=== PATIENT | male | born 1955 | race African-American/Black ===

== ENCOUNTER 2025-01-17 21:17 | Observation (INO) | payer OTHER, SELFPAY ==
--- NOTE | ~2025-01-17 | CT_ITS ---
PROCEDURE: CTA abdomen pelvis INDICATION: bright red rectal bleeding . COMPARISON: None. TECHNIQUE: Axial 2.5 mm images of the abdomen and pelvis were obtained without and with infusion of 100 cc Isovue-300 intravenous contrast. On an independent workstation, 0.625 mm reformatted images were utilized to render MIP and MPR reconstructed images of the abdominal and pelvic vasculature. FINDINGS: The abdominal aorta, visceral vessels and renal arteries demonstrate normal caliber and patency. No hemodynamically significant stenosis or aneurysm is identified. The iliac and visualized femoral vessels are widely patent. No aneurysm or hemodynamically significant stenosis is noted. No contrast blush is seen to suggest acute hemorrhage. NONVASCULAR FINDINGS: The liver parenchyma is unremarkable. No intrahepatic mass or ductal dilatation is evident. The gallbladder is unremarkable. The pancreas and spleen are normal in appearance. The adrenal glands are symmetric in size. The kidneys are unremarkable. No intrarenal stones are noted. There is no hydronephrosis. Small hiatal hernia. The stomach and bowel loops are unremarkable. Bladder wall is thickened. No free fluid or air is evident. Prominent left inguinal lymph node measures 10 mm. There is no abdominal or pelvic lymphadenopathy. The lower thoracic and lumbar spines are unremarkable. The lung bases are clear. IMPRESSION: No contrast blush is seen to suggest acute bleed. No hemodynamically significant stenosis. Small hiatal hernia is noted. Nonspecific thickening of the bladder wall. All CT scans at this facility are performed using low dose modulation techniques as appropriate to perform exam including the following: automated exposure control; use of iterative reconstruction technique; adjustment of the mA and/or kV according to patient size (this includes techniques or standardized protocols for targeted exams where dose is matched to indication/reason for exam). Reviewed, dictated and finalized at location S. IMPRESSION: No contrast blush is seen to suggest acute bleed. No hemodynamically significant stenosis. Small hiatal hernia is noted. Nonspecific thickening of the bladder wall. All CT scans at this facility are performed using low dose modulation techniqu es as appropriate to perform exam including the following: automated exposure c ontrol; use of iterative reconstruction technique; adjustment of the mA and/or kV according to patient size (this includes techniques or standardized protocol s for targeted exams where dose is matched to indication/reason for exam).
--- NOTE | ~2025-01-17 | XR_ITS ---
EXAMINATION: XR hip LT 2V w AP pelvis DATE: 01/20/2025 11:24 INDICATION: Left hip pain TECHNIQUE: Anteroposterior view of the pelvis and anteroposterior and frog-leg lateral views of the left hip were obtained. COMPARISON: None. FINDINGS: Polyarticular osteoarthritis, mild at the right hip and bilateral sacroiliac joints and severe at the left hip. There is subarticular cystic change at the cephalad aspect of the left acetabulum. Subarticular sclerosis at the apex of the left femoral head. Moderate lower lumbar spondylosis. Phleboliths at the right base of the scrotum. IMPRESSION: 1. Severe left hip osteoarthritis. No acute osseous abnormality. Reviewed, dictated and finalized at location A.
[2025-01-17] MEDS: SODIUM CHLORIDE 0.9% IV 1,000 ML 999 ML IV CONT (21:30)
--- OUTSIDE RECORDS SUMMARY | 2025-01-17 21:32 | XMS_ITS | Encounter Summary ---
Author Organization [facility] Address [facility] [place] [address] Care Team Providers Care Assembly Machine Offbearer Name Role Phone Krystian Person MD Primary Care Provider [phone] Encounter Details Date Type Department Care Team (Late st Contact Info) Description 09/11/2018 Abstract [facility] CONVERSION [address] [place] [address] , Generic Conversion, Social History Tobacco Use Types Packs/Day Years Used Date Smoking Tobacco: Never Assessed Sex and Gender Information Value Date Recorded Sex Assigned at Not on file Legal Sex Male 5:02 PM CDT Gender Identity Not on file Sexual Orientation Not on file documented as of this encounter Plan of Treatment Not on file documented as of this encounter Visit Diagnoses Not on filedocumented in this encounter Additional Health Concerns Infection Onset Date Last Indicated Resolved Time MRSA 11/11/2016 11/11/2016 04/11/2019 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
--- OUTSIDE RECORDS SUMMARY | 2025-01-17 21:32 | XMS_ITS | Clinical Summary ---
Author Organization [facility] Address [facility] [place] [address] Care Team Providers Care Mysql Database Developer Name Role Phone Krystian Person MD Primary Care Provider Allergies Active Allergy Reactions Criticality Noted Date Comments Penicillins Rash,Anaphylaxis High 04/01/2019 Sulfa Antibiotics Rash Medium 04/01/2019 Medications tamsulosin 0.4 MG Cap 0.4 mg daily. Active Lancets Misc Please check your blood glucose before breakfast, before lunch, before dinner, and before you go to bed. 04/05/2019 Active Glucose Blood (PRECISION QID TEST) test strip Please check your blood glucose before breakfast, before lunch, before dinner, and before you go to bed. 04/05/2019 Active atorvastatin 40 MG tablet Take 1 tablet (40 mg total) by mouth nightly at bedtime. 30 tablet 04/12/2019 Active Active Problems Problem Noted Date Diagnosed Date Chest pain 04/09/2019 Suicidal ideations 04/09/2019 Acute kidney injury 04/09/2019 Diabetes mellitus type 2, insulin dependent 07/2019 Syncope 04/09/2019 Cocaine abuse 04/09/2019 Diabetes mellitus 04/01/2019 Overview (04/09/2019): Last Assessment & Plan: Blood sugars have been in the 200s throughout the admission while on LDSSI. Patient does not remember how much insulin he took. However, he admits he has not taken insulin in some time (months to years). He does not know when he was diagnosed or when he was converted from oral agents to insulin. Required 27 units of Lispro yesterday although patient was snacking frequently despite being redirected by staff and overnight physician. We have spent an extra 24 hours trying to optimize the patient's glucose control prior to discharge. However, because of the patient's financial situation (unemployed without money, no insurance, no housing), the therapeutic options for his diabetes are limited. Specifically, the patient will be discharged to street/fdc with unclear refrigeration capacity for insulin. In addition, Novolin 70/30 would be the most financially feasible option for the patient, but this would require that the patient mix his own insulin. There is a risk using this approach given the patient's limited reading and healthcare literacy. In addition, this would mean providing a syringe to a known and active cocaine/drug user, which is not ideal. Finally, because of the patient's financial situation, the stability and consistency of his future meals is unknown so there is high risk for hypoglycemia on insulin. The patient's HbA1c was 10.8% on admission while not being on any therapy for months to years so he probably has some endogenous insulin production. Overall, I think it is reasonable to discharge him on oral antihyperglycemic agents due to practicality and better risk/benefit profile despite not being the optimal treatment for a Type 2 diabetic previously on insulin. Specifically, in the absence of overt liver and kidney disease, I will discharge him on Janumet 1000/50 mg BID. Hopefully this antihyperglycemic regimen can be better optimized once he is established with a primary care physician. He has an appointment at the [facility] on 04/13/2019. We will attempt to provide him with a glucometer, test strips, and lancets so he can check his blood glucose frequently. - Consulted hospice educator - Basal 7 units, Bolus 2 units TIDAC, LDSSI - Discharge on Janumet 1000/50 mg BID - Scheduled for [facility] on 04/13/2019 at 1:00 PM. Unspecified mood (affective) disorder 04/01/2019 Overview (04/09/2019): Last Assessment & Plan: 2 year history of low mood, poor sleep, low energy, hopelessness, poor concentration, and persistent suicidality with 2 attempts via cutting. Recent stressors have included the of family members and chronic pain from an accident. On exam he has a dysthymic and mood incongruent affect. There is significant concern for substance-induced mood disorder due to recent cocaine use as well as concern for malingering with clear secondary gain since patient is homeless/unemployed/uninsured/without income, has changing facts without clear cognitive deficit, is repeatedly asking for narcotic pain medications and other medications (e.g., baclofen) by name despite claimed health illiteracy, and refuses to give collateral. There is also strong evidence for antisocial personality disorder given patient has had a long history of legal issues in addition to evidence of manipulative behavior. At this time due to limited collateral and no prior admissions, unspecified depressive disorder is the most appropriate diagnosis. However, there is significant concern for an underlying personality disorder and malingering. - Ramelteon 8 QHS - Remeron 15 QHS - No collateral available - Will discharge to fdc with outpatient follow-up at resident psychiatry clinic on 04/26/2019 at 12:30 PM. Encounters Date Type Department Care Team Description 11/17/2024 Telephone [facility] Care Management [address] [place] [address] Jyoti Garcia, rip/mould operator (Swing bed referral to [facility] from [facility]) from Last 3 Months Immunizations Immunization Administration Dates Next Due Afluria 36 MONTHS+ (Prefilled Syringe IIV4) 07/2019 Influenza Adult (Generic) 04/09/2019 Family History Medical History Relation Comments Diabetes Father Diabetes Mother Stroke Mother Relation Status Comments Father Mother Social History Tobacco Use Types Packs/Day Years Used Date Smoking Tobacco: Every Day Cigarettes 0.5 16 Smokeless Tobacco: Current Alcohol Use Standard Drinks/Week Comments No 0 (1 standard drink = 0.6 oz pur e alcohol) AUDIT-C Answer Date Recorded Frequency of Alcohol Consumption Never 04/09/2019 Average Number of Drinks Not on file 020 Frequency of Binge Drinking Not on file 07/2019 Sex and Gender Information Value Date Recorded Sex Assigned at Not on file Legal Sex Male 5:02 PM CDT Gender Identity Not on file Sexual Orientation Not on file Last Filed Vital Signs Vital Sign Reading Time Taken Comments Blood Pressure 136/75 04/21/2019 5:25 AM TRIMMER SAWYER Pulse 78 04/21/2019 5:25 AM TRIMMER SAWYER Temperature 36.3 C (97.4 F) 04/21/2019 5:25 AM TRIMMER SAWYER Respiratory Rate 18 04/21/2019 5:25 AM TRIMMER SAWYER Oxygen Saturation 98% 04/21/2019 5:25 AM TRIMMER SAWYER Inhaled Oxygen Concentration - - Weight 109.4 kg (241 lb 2.9 oz) 04/21/2019 5:25 AM TRIMMER SAWYER Height 180.3 cm (5' 11) 04/09/2019 8:19 AM TRIMMER SAWYER Body Mass Index 33.64 04/09/2019 8:19 AM TRIMMER SAWYER Plan of Treatment Health Maintenance Due Date Last Done Comments Colorectal Cancer Screening Colonoscopy (10 Years) 1954 Kidney Health Evaluation 1954 Lipid Panel 1954 Diabetes: Retinopathy Eye Exam 1972 DTaP, Tdap and Td Vaccines (1 - Tdap) 1973 Pneumococcal Vaccine: 50+ Years (1 of 2 - PCV) 1973 Zoster Vaccines (1 of 2) 2004 COVID-19 Vaccine (1 - season) 2024 Influenza Adult (#1) 2025 04/09/2019, 04/09/19 20 Hemoglobin A1C 04/13/2025 10/11/2024, 11/04, 04/09/2019, Additional history exists RSV Immunization or 60+ Years (1 - 1-dose 75+ series) 2029 Hepatitis C Completed 10/15/2024, 10/13/2024 Meningococcal B Vaccine Aged Out No l onger eligible based on patient's age to complete this topic Meningococcal Vaccine Aged Out No leonila larry eligible based on patient's age to complete this topic RSV Immunizations Under 20 Months Aged Out No longer eligible based on patient's age to complete this topic Procedures Procedure Name Priority Date/Time Associated Diagnosis Comments HEMOGLOBIN, GLYCOSYLATED Routine 04/09/2019 3:48 AM TRIMMER SAWYER from Last 3 Months or Most Recently Relevant to Health Maintenance Results * (ABNORMAL) HEMOGLOBIN, GLYCATED (04/09/2019 3:48 AM TRIMMER SAWYER) HGB A1C 9.6(H) 4.2 - 6.3 % 04/09/2019 1:33 PM TRIMMER SAWYER [facility] Comment: ADA GUIDELINES 2010 5.7 TO 6.4% INCREASED RISK OF DIABETES > OR = 6.5% CONSISTENT WITH DIABETES ESTIMATED AVG GLUCOSE 229 mg/dL 04/09/2019 1:33 PM TRIMMER SAWYER [facility] 04/09/2019 3:48 AM TRIMMER SAWYER Wayne Harris MD LABORATORY Final Result [facility] [address] [place] [address], from Last 3 Months or Most Recently Relevant to Health Maintenance Insurance MEDICAID MEDICAID Advance Directives * Full Code (Latest Code Status on File) Date Activated Date Inactivated Comments 04/09/2019 9:15 AM 04/21/2019 1:16 PM Care Teams Mysql Database Developer Relationship Specialty Start Date End Date Krystian Person MD [facility] - General 10/11/16
--- OUTSIDE RECORDS SUMMARY | 2025-01-17 21:32 | XMS_ITS | Encounter Summary ---
Author Organization [facility] Address [facility] [place] [address] Care Team Providers Care Nurse Esthetician Name Role Phone Krystian Person MD Primary Care Provider [phone] Encounter Details Date Type Department Care Team (Late st Contact Info) Description 04/22/2019 Hospital Follow-up Call [facility] Med/Surg [address] [place] [address] [place] Social History Tobacco Use Types Packs/Day Years [...] on file documented as of this encounter Functional Status * RETIRED Are you deaf or do you have serious difficulty hearing Answer Date of Assessment Author Status Yes 04/09/2019 8:10 AM NEWS PHOTOGRAPHER Activ e * RETIRED Are you blind or do you have serious difficulty seeing, even when wearing glasses? Answer Date of Assessment Author Status Yes 04/09/2019 8:10 AM NEWS PHOTOGRAPHER Activ e * Do you have serious difficulty walking or climbing stairs? Answer Date of Assessment Author Status Yes 04/09/2019 8:10 AM NEWS PHOTOGRAPHER Tania Garcia RN Active * Do you have difficulty dressing or bathing? Answer Date of Assessment Author Status Yes 04/09/2019 8:10 AM Tania Peacock RN Active * Because of a physical, mental, or emotional condition, do you have difficulty doing errands alone such as visiting a doctor's office or shopping? Answer Date of Assessment Author Status Yes 04/09/2019 8:10 AM Tania Peacock RN Active documented as of this encounter Mental Status * Because of a physical, mental, or emotional condition, do you have serious difficulty concentrating, remembering, or making decisions? Answer Entry Date Author Status Yes 04/09/2019 8:10 AM Tania Peacock RN Active documented in this encounter Plan of Treatment Not on file documented as of this encounter Visit Diagnoses Not on filedocumented in this encounter Care Teams Nurse Esthetician Relationship Specialty Start Date End Date Krystian Person MD PCP - General 10/11/16 documented as of this encounter
--- OUTSIDE RECORDS SUMMARY | 2025-01-17 21:33 | XMS_ITS | Clinical Summary ---
Author Organization [facility] al Address [address] [place] [address] Care Team Providers Care Information Security Engineer Name Role Phone No, Physician Primary Care Provider [phone] Allergies Active Allergy Reactions Criticality Noted Date Comments Penicillins Other (See comments) Low 04/01/2019 Mild burning during IV infusion Sulfa (Sulfonamide Antibiotics) Rash Medium 04/01/2019 Medications lancets miscIndications :Type 2 Diabetes Mellitus Please check your blood glucose before breakfast, before lunch, before dinner, and before you go to bed. 100 each 1 Active aspirin 325 mg tablet Take 1 tablet (325 mg total) by mouth daily 5 10/19/19 26 Active rosuvastatin (CRESTOR) 20 mg tablet Take 1 tablet (20 mg total) by mouth nightly 5 10/19/19 26 Active lidocaine (LIDODERM) 5 % Place 2 patches on the skin daily for 12 hours Remove & discard patch within 12 hours or as directed by . 5 Active tamsulosin (FLOMAX) 0.4 mg extended release capsule Take 1 capsule (0.4 mg total) by mouth daily with dinner 5 Active bisacodyl EC (DULCOLAX EC) 5 mg EC tabletIndicatio ns:constipation Take 2 tablets (10 mg total) by mouth daily as needed for constipation (if no results 24 hours after polyethylene glycol administration) 30 tablet 5 Active oxyCODONE (ROXICODONE) 5 mg immediate release tabletIndicatio ns:Pain Take 1 tablet (5 mg total) by mouth every 4 (four) hours as needed for pain 12 tablet 5 Active metFORMIN (GLUCOPHAGE) 500 mg tablet Take 1 tablet (500 mg total) by mouth 2 (two) times a day with meals 60 tablet 5 Active glecaprevir-pib rentasvir (MAVYRET) 100-40 mg tablet per tabletIndicatio ns:Viral Hepatitis C Take 3 tablets by mouth daily for 28 days take with food 84 tablet 5 Active Active Problems Problem Noted Date Diagnosed Date Physical deconditioning 11/09/2024 Severe protein-calorie malnutrition 10/17/2024 Transient, Sudden loss of vision, right 10/16/19 25 Assessment & Plan (10/15/2024 4:50 PM CDT): Patient reports that for a brief period on 10/15, he experienced loss of vision in the right eye. His vision was decreased to only being able to see light and dark and very basic forms. His neurologic exam, including detailed examination of cranial nerves 2-12, was nonfocal with the exception of vision loss in his right eye. The patient returned spontaneously over a period of 5-10 minutes. Consider amaurosis fugax. -Consult Ophthalmology Syphilis 10/14/2024 Assessment & Plan (10/17/2024 1:05 PM CDT): Initially diagnosed in 2020 with titer 1:128. Asymptomatic at that time so likely staged as syphilis of unknown duration. Has been prescribed doxycycline at least twice since that time which patient states he likely did not take so has not been properly treated. RPR titer now 1:8 although has likely fallen with time and not due to treatment response. Of note, patient previously prescribed doxycycline due to reported penicillin allergy of anaphylaxis in chart. However, patient clearly denies any history of anaphylaxis and states he had penicillin years ago and it only caused a funny taste in his mouth. Testing for penicillin allergy or penicillin challenge may be beneficial in this patient as it may allow treatment of syphilis with penicillin rather than extended course of doxycycline which patient states he will have difficulty in completing. Patient seen by allergy on 10/15 and patient cleared to start penicillin as recommended. Patient started on penicillin G 3 million units ever 4 hours on 10/16. Patient waiting for MRI and TTE. On assessment today, patient reporting left hip/leg pain. Denies n/v/d, itching, rash, fevers/chills or new concerns at time. Recommendations: - Continue Penicillin G 3 millin units ever 4 hours -While on the IV antibiotics, please obtain at least a weekly cbc with diff and CMP for antibiotic toxicity monitoring -plan on 2 weeks of treatment -repeat RPR in 3-6 months Assessment & Plan (10/15/2024 4:50 PM CDT): Per chart review, patient diagnosed with primary syphilis during 2020. Given penicillin allergy (anaphylaxis), he was prescribed doxycycline, but unclear if patient ever initiated treatment. RPR titers at that time was 1:128. Repeat RPR titers this admission 1:8. Plan: -Per Infectious Diseases, would like tissue with penicillin -Allergy, immunology team does not believe the patient has anaphylactic history. Okay to get penicillin. -Plan to give penicillin morning of 10/16 with MD present Assessment & Plan (10/14/2024 8:35 PM CDT): Initially diagnosed in 2020 with titer 1:128. Asymptomatic at that time so likely staged as syphilis of unknown duration. Has been prescribed doxycycline at least twice since that time which patient states he likely did not take so has not been properly treated. RPR titer now 1:8 although has likely fallen with time and not due to treatment response. Of note, patient previously prescribed doxycycline due to reported penicillin allergy of anaphylaxis in chart. However, patient clearly denies any history of anaphylaxis and states he had penicillin years ago and it only caused a funny taste in his mouth. Testing for penicillin allergy or penicillin challenge may be beneficial in this patient as it may allow treatment of syphilis with penicillin rather than extended course of doxycycline which patient states he will have difficulty in completing. - Recommend consultation with allergy/immunology for penicillin testing vs challenge while inpatient to determine if patient can take penicillin safely as he denies any history of anaphylaxis - If patient is able to take penicillin safely, then we can treat with IM Bicillin 2.4 million units weekly x3 weeks. This will allow patient to receive treatment in a medical facility rather than rely on PO antibiotics which patient questions that he can reliably complete. - If patient is unable to take penicillin safely, then he will need to complete doxycycline 100mg PO BID x28 days - Please complete STI testing with GC/chlamydia urine NAAT Assessment & Plan (10/14/2024 3:59 PM CDT): Per chart review, patient diagnosed with primary syphilis during 2020. Given penicillin allergy (anaphylaxis), he was prescribed doxycycline, but unclear if patient ever initiated treatment. RPR titers at that time was 1:128. Repeat RPR titers this admission 1:8. Plan: -ID consulted, appreciate recs Hepatitis C 10/14/2024 Assessment & Plan (10/17/2024 2:53 PM CDT): New diagnosis of hepatitis C with positive ab and RNA. Will have our HCV team meet with patient to determine the best course of action for patient to receive treatment for HCV, although he questions if he can complete PO treatment as an outpatient due to inability to store medications. Patient is interested in treatment and HCV Nurse Navigator following. Have confirmed with primary team plan is for patient to discharge to SNF. Recommendations: -Please change please change his atorvastatin to rosuvastatin -please obtain a liver ultrasound -planning on starting HCV treatment at facility. Assessment & Plan (10/15/2024 4:50 PM CDT): - Per the Infectious Disease team. Plan to discharge with treatment. Assessment & Plan (10/14/2024 8:35 PM CDT): New diagnosis of hepatitis C with positive ab and RNA. Will have our HCV team meet with patient to determine the best course of action for patient to receive treatment for HCV, although he questions if he can complete PO treatment as an outpatient due to inability to store medications. - Please obtain HCV genotype, fibro-acti test, HBV surface Ab, HBV core Ab, HAV total Ab - Will have our ID nurse navigators meet with patient to discuss options for treatment vs clinic follow up Syncope and collapse 10/13/2024 Syncope, unspecified syncope type 10/12/2024 Assessment & Plan (10/15/2024 4:50 PM CDT): Etiologies including cardiac causes/arrhythmias in the setting of cocaine use, toxic ingestion, orthostatic hypotension, infectious processes, endocrine. He was placed on 24-hour telemetry, which was unrevealing. He will need loop monitor on discharge, however, he currently does not have housing or PCP. Plan: - orthostatics - telemetry - Waiting on placement to [facility] facility. Assessment & Plan (10/14/2024 3:59 PM CDT): Etiologies including cardiac causes/arrhythmias in the setting of cocaine use, toxic ingestion, orthostatic hypotension, infectious processes, endocrine. He was placed on 24-hour telemetry, which was unrevealing. He will need loop monitor on discharge, however, he currently does not have housing or PCP. Plan: - orthostatics - telemetry - Loop monitor on discharge? Assessment & Plan (10/13/2024 5:54 PM CDT): Etiologies including cardiac causes/arrhythmias in the setting of cocaine use, toxic ingestion, orthostatic hypotension, infectious processes, endocrine Plan: - Infectious workup with HIV, RPR - TSH - VBG - orthostatics - telemetry - Loop monitor on discharge? Assessment & Plan (10/12/2024 7:51 PM CDT): Etiologies including cardiac causes/arrhythmias in the setting of cocaine use, toxic ingestion, orthostatic hypotension, infectious processes, endocrine Plan: - Narrow infectious workup with HIV, RPR - TSH - VBG - orthostatics - telemetry Left hip pain 10/12/2024 Assessment & Plan (10/15/2024 4:50 PM CDT): Left hip pain following syncopal event and fall. Left hip X-ray without acute fractures or dislocation, left femoral head aligned with multilevel degenerative changes in the lumbosacral spine Plan: - Tylenol, lidocaine patches Assessment & Plan (10/14/2024 3:15 PM CDT): Left hip pain following syncopal event and fall. Left hip X-ray without acute fractures or dislocation, left femoral head aligned with multilevel degenerative changes in the lumbosacral spine Plan: - Tylenol, lidocaine patches Assessment & Plan (10/13/2024 5:54 PM CDT): Left hip pain following syncopal event and fall. Left hip X-ray without acute fractures or dislocation, left femoral head aligned with multilevel degenerative changes in the lumbosacral spine Plan: - Tylenol, lidocaine patches Assessment & Plan (10/12/2024 7:51 PM CDT): Left hip pain following syncopal event and fall. Left hip X-ray without acute fractures or dislocation, left femoral head aligned with multilevel degenerative changes in the lumbosacral spine Plan: - Tylenol, lidocaine patches TMJ dislocation 10/12/2024 Assessment & Plan (10/15/2024 4:50 PM CDT): Patient with facial pain on admission, CT head showing anteriorly subluxed left mandibular condyle in relation to the temporomandibular joint with possible fracture at the mandibular condyle. Mandibular subluxation was reduced with ENT under sedation. Plan: - Soft, no chew diet - Pain control - Recommend outpatient OMFS evaluation. Recommend follow up at the [facility] dental clinic if patient otherwise unable to seek care. - Avoid extreme mouth opening (> 2 cm) for 3 weeks Assessment & Plan (10/14/2024 3:15 PM CDT): Patient with facial pain on admission, CT head showing anteriorly subluxed left mandibular condyle in relation to the temporomandibular joint with possible fracture at the mandibular condyle. Mandibular subluxation was reduced with ENT under sedation. Plan: - Soft, no chew diet - Keep head wrap in place for 3 days - Pain control - Recommend outpatient OMFS evaluation. Recommend follow up at the [facility] dental clinic if patient otherwise unable to seek care. - Avoid extreme mouth opening (> 2 cm) for 3 weeks - If yawning, support the lower jaw - Place warm compresses on the temporomandibular area for 1 day Assessment & Plan (10/13/2024 5:54 PM CDT): Patient with facial pain on admission, CT head showing anteriorly subluxed left mandibular condyle in relation to the temporomandibular joint with possible fracture at the mandibular condyle. Mandibular subluxation was reduced with ENT under sedation. Plan: - Soft, no chew diet - Keep head wrap in place for 3 days - Pain control - Recommend outpatient OMFS evaluation. Recommend follow up at the [facility] dental clinic if patient otherwise unable to seek care. - Avoid extreme mouth opening (> 2 cm) for 3 weeks - If yawning, support the lower jaw - Place warm compresses on the temporomandibular area for 1 day Assessment & Plan (10/12/2024 7:51 PM CDT): Patient with facial pain on admission, CT head showing anteriorly subluxed left mandibular condyle in relation to the temporomandibular joint with possible fracture at the mandibular condyle. Mandibular subluxation was reduced with ENT under sedation. Plan: - Soft, no chew diet - Keep head wrap in place for 3 days - Pain control - Recommend outpatient OMFS evaluation. Recommend follow up at the [facility] dental clinic if patient otherwise unable to seek care. - Avoid extreme mouth opening (> 2 cm) for 3 weeks - If yawning, support the lower jaw - Place warm compresses on the temporomandibular area for 1 day Obstructive sleep apnea-hypopnea syndrome 2020 Assessment & Plan (11/26/2020 10:50 AM CDT): Pt has reported hx of YOLANDA and has worn CPAP in past. Plan for CPAP on unit. - NPPV Assessment & Plan (11/25/2020 11:03 AM CDT): Pt has reported hx of YOLANDA and has worn CPAP in past. Plan for CPAP on unit. - NPPV Assessment & Plan (11/23/2020 1:07 PM CDT): Pt has reported hx of YOLANDA and has worn CPAP in past. Plan for CPAP on unit. - NPPV COVID-19 virus infection 11/05/2020 Cocaine abuse with cocaine-induced mood disorder (CMS/HCC) 04/01/2019 Assessment & Plan (11/26/2020 10:50 AM CDT): Pt still endorsing SI, but does not appear dysphoric. He says that he may feel better if he has a stable place to go. Pt reporting auditory hallucinations that are of his sister. These symptom endorsements are likely more a result of his personality and are chronic issues. Pt would not benefit from psychotropic medication at this time. Pt has awareness that his substance use correlates with his mood symptoms. C/w with current tx. - plan for inpatient rehabilitation - suicide precautions - no psychotropic medication at this time - motivational interviewing Assessment & Plan (11/25/2020 11:04 AM CDT): Pt presents to hospital with low mood and SI with intent to harm himself. Pt is irritable and SI does not appear to be in the setting of major psychiatric pain. Pt still endorsing SI, but does not appear dysphoric. He says that he may feel better if he has a stable place to go. There is also concern for secondary gain as pt has recent change in housing situation and prior homelessness with hospitalizations where he was seeking housing. C/w with current tx. - plan for inpatient rehabilitation - suicide precautions - no psychotropic medication at this time - motivational interviewing Assessment & Plan (11/23/2020 1:11 PM CDT): Pt presents to hospital with low mood and SI with intent to harm himself. Pt is irritable and SI does not appear to be in the setting of major psychiatric pain. It is plausible that this conditional SI is an over-endorsement of symptoms for the sake of secondary gain. He has a previous psychiatric history of cocaine use disorder as well as possible cluster B personality traits. Pt has extensive forensic history and previous hospitalizations for low mood without meeting criteria for MDD. Given pt's recent COVID diagnosis, cocaine use disorder, and psychosocial stressors of no longer living with his partner, pt likely presenting with either adjustment disorder with depressed mood or substance-induced mood disorder. Up to 33% of patients will report depressed mood in the post-COVID setting. There is also concern for secondary gain as pt has recent change in housing situation and prior homelessness with hospitalizations where he was seeking housing. - plan for inpatient rehabilitation - suicide precautions - no psychotropic medication at this time - motivational interviewing Assessment & Plan (04/01/2019 11:53 PM TREATING AND PUMPING SUPERVISOR): UDS+ cocaine, previously endorsing chest pain but troponins negative Diabetes mellitus 04/01/2019 Assessment & Plan (10/15/2024 4:50 PM CDT): Not currently on meds. Last A1c 8.3% (2020). Plan: - A1c pending - LDSSI while inpatient, consider starting metformin prior to discharge Assessment & Plan (10/14/2024 3:15 PM CDT): Not currently on meds. Last A1c 8.3% (2020). Plan: - A1c pending - LDSSI while inpatient, consider starting metformin prior to discharge Assessment & Plan (10/13/2024 5:54 PM CDT): Not currently on meds. Last A1c 8.3% (2020). Plan: - A1c pending - LDSSI while inpatient, consider starting metformin prior to discharge Assessment & Plan (10/12/2024 7:51 PM CDT): Not currently on meds. Last A1c 8.3% (2020). Plan: - A1c pending - LDSSI while inpatient, consider starting metformin prior to discharge Assessment & Plan (11/26/2020 10:48 AM CDT): Pt has reported history of T2DM. Pt reports being on lantus at home. Pt will be started on LDSS and can recommend metformin. Pt has hx of stroke and AK 2/2 DM. Glucoses have been in 200s here. A1c 8.3. Pt's glucose measurements continue to be elevated. Per endo given pt may have trouble with insulin storage on d/c. Plan to maintain HDSS and add metformin 500 mg BID, sitagliptin 100 mg every day. Will continue to assess glucose levels on this regimen, and if needed, we can add pioglitazone +/- sulfonylurea. - HDSS - metformin 500 mg bid - sitagliptin 100 mg every day - diabetic diet - labetalol 100 mg BID Assessment & Plan (11/25/2020 11:06 AM CDT): Pt has reported history of T2DM. Pt reports being on lantus at home. Pt will be started on LDSS and can recommend metformin. Pt has hx of stroke and AK 2/2 DM. Glucoses have been in 200s here. A1c 8.3. Pt's glucose measurements continue to be elevated. Endo consult called, appreciate recs. Pt has been requiring more insulin. - LDSS, can increase to MDSS - glargine nightly 20 u - diabetic diet - Metoprolol 100 mg BID - possible endo consult if gluc not controlled Assessment & Plan (11/23/2020 1:04 PM CDT): Pt has reported history of T2DM. Pt reports being on lantus at home. Pt will be started on LDSS and can recommend metformin. Pt has hx of stroke and AK 2/2 DM. Glucoses have been in 200s here. - LDSS - diabetic diet - Metoprolol 100 mg BID - possible endo consult if gluc not controlled Assessment & Plan (04/05/2019 9:55 AM TREATING AND PUMPING SUPERVISOR): Blood sugars have been in the 200s [...] Specifically, the patient will be discharged to [facility] with unclear refrigeration capacity for insulin. In [...] physician. He has an appointment at the [facility] on 04/13/2019. We will attempt to provide him with a glucometer, test strips, and lancets so he can check his blood glucose frequently. - Consulted informatics educator - Basal 7 units, Bolus 2 units TIDAC, LDSSI - Discharge on Janumet 1000/50 mg BID - [facility]13[facility]2019 at 1:00 PM. Assessment & Plan (04/05/2019 8:54 AM TREATING AND PUMPING SUPERVISOR): Blood sugars have been in the 200s [...] Specifically, the patient will be discharged to street[facility] with unclear refrigeration capacity for insulin. In [...] kidney disease, I will discharge him on Metformin 1000 mg BID. Adding a DPP-4 inhibitor would be ideal, but it is not financially feasible at this time. Hopefully this antihyperglycemic regimen can be better optimized once he is established with a primary care physician. He has an appointment at the [facility] on 04/13/2019. We will attempt to provide him with a glucometer, test strips, and lancets so he can check his blood glucose frequently. - Consulted informatics educator - Basal 7 units, Bolus 2 units TIDAC, LDSSI - Discharge on Metformin 1000 mg BID - [facility]uled for [facility] 04/13/2019 at 1:00 PM. Assessment & Plan (04/04/2019 11:37 AM TREATING AND PUMPING SUPERVISOR): Blood sugars have been in the 200s throughout the admission while on LDSSI. Patient states he took 40 units of long-acting in the morning. He does not remember how much he took with meals. However, he admits he has not taken insulin in some time. Required 18 units of Lispro yesterday. - Basal 7 units, Bolus 2 units TIDAC, LDSSI - Consult informatics educator - Discuss financial support for insulin with social work. - Scheduled for [facility] 04/13/2019 at 1:00 PM. Assessment & Plan (04/03/2019 8:29 AM TREATING AND PUMPING SUPERVISOR): Blood sugars have been in the 200s throughout the admission while on LDSSI. Patient states he took 40 units of long-acting in the morning. He does not remember how much he took with meals. However, he admits he has not taken insulin in some time. Required 18 units of Lispro yesterday. - LDSSI - Given the discrepancy in his calculated/estimated daily insulin requirement (54.5 units) versus how much he required on the sliding scale yesterday (18 units) in the setting of medication non-compliance, we will wait another 24 hours to get a better estimate of his needs prior to starting a basal-bolus regimen. Resolved Problems Problem Noted Date Diagnosed Date Resolved Date Closed head injury 11/22/2020 1 Unspecified mood (affective) disorder 04/01/2019 11/23/2020 Assessment & Plan (11/22/2020 7:50 PM CDT): Patient presents with complaint of suicidal ideations. Considering prior history of malingering, and cluster B personality disorder with unclear fulfillment for criteria of MDD, this patient most likely is malingering. He did not engage well in interview and was constantly requesting for objects such as pillow and blanket during the interview. Plan is to monitor patient and attempt to interview again tomorrow to assess what the secondary gain is. He could also be withdrawing from cocaine resulting in the drowsiness. Need to monitor. Assessment & Plan (04/05/2019 9:54 AM TREATING AND PUMPING SUPERVISOR): 2 year history of low mood, poor [...] an underlying personality disorder and malingering. - Ramadelaeon 8 QHS - Remeron 15 QHS - No collateral available - Will discharge to [facility] with outpatient [facility] at [facility] on 04/26/2019 at 12:30 PM. Assessment & Plan (04/05/2019 7:21 AM TREATING AND PUMPING SUPERVISOR): 2 year history of low mood, poor [...] an underlying personality disorder and malingering. - Martin 8 Q - Remeron 15 [facility] - No collateral available - Will discharge to [facility] with outpatient follow-up at [facility] on 04/26/2019 at 12:30 PM. Assessment & Plan (04/04/2019 11:38 AM TREATING AND PUMPING SUPERVISOR): 63-year-old man reporting a 2 year history of low mood, poor sleep, low energy, hopelessness, poor concentration, and persistent suicidality with 2 attempts via cutting. Recent stressors have included the of family members and chronic pain from an accident. On exam he has a dysthymic and mood incongruent affect. There is significant concern for substance induced mood disorder due to recent cocaine use as well as concern for malingering with clear secondary gain since patient is homeless/unemployed/uninsured/without income, has changing facts without clear cognitive deficit, is repeatedly asking for narcotic pain medications, and refuses to give collateral. There is also strong evidence for antisocial personality disorder given patient has had a long history of legal issues in addition to evidence of manipulative behavior. At this time due to limited collateral and no prior admissions, unspecified depressive disorder is the most appropriate diagnosis. However, there is significant concern for an underlying personality disorder. - Jeromeeon 8 QHS - Remeron 15 QHS - No collateral available - Will discharge to [facility] with outpatient follow-up at [facility] on 04/26/2019 at 12:30 PM. Assessment & Plan (04/03/2019 8:18 AM TREATING AND PUMPING SUPERVISOR): 63-year-old man reporting a 2 year history of low mood, poor sleep, low energy, hopelessness, poor concentration, and persistent suicidality with 2 attempts via cutting. Recent stressors have included the of family members, and chronic pain from an accident. On exam he appears somewhat dysthymic that there is also significant concern for substance induced mood disorder due to recent cocaine use, as well as concern for secondary gain since patient may be homeless and is asking for narcotic pain medications. There is also strong evidence for antisocial personality disorder given patient has had a long history of legal issues, there is evidence of manipulative behavior. At this time due to limited collateral and no prior admissions, unspecified depressive disorder is the most appropriate diagnosis. -Martin [facility] -Remeron 15 [facility] - Attempt to find collateral Encounters Date Type Department Care Team Description 01/11/2025 Telephone [facility] Medicine Infectious Diseases [address] [place] [phone] Karon Moe RN 01/11/2025 Telephone [facility] Medicine Infectious Diseases [address] [place] [phone] Karon Moe RN 01/03/[address] [facility] Case Management [address] [place] [phone] Karon Laws 12/20/2024 Telephone [facility] [address] [place] [address] [place] [phone] Nigel Millan [facility] 12/20/2024 Documentation [facility] [address] [place] [address] [place] [phone] Nigel Millan [facility] 12/14/2024 Telephone [facility] Medicine Infectious Diseases [address] [place] [phone] Karon Moe, ROB 12/01/2024 [facility]ation [facility] [address] [phone] Ashley Abrams CNS 11/24/2024 Telephone [facility] Medicine Infectious Diseases [address] [place] [phone] Karon Moe, ROB 11/24/2024 Orders Only [facility] [address] [place] [phone] Maren Sheth MD PhD 11/09/2024 4:02 PM CDT - 11/23/2024 4:25 [place] [address] Ezio Houston MD Al Furgani, Mahmud Mustafa, MD Mustafa, Saim, DO Al-Hamati, Adri Agrawal MD Syphilis (Primary Dx); Chronic hepatitis C without hepatic coma (HCC); Osteoarthritis of left hip, unspecified osteoarthritis type Discharge Disposition: Discharge to assisted facility 11/09/2024 3:45 AM CDT - 11/09/2024 3:28 PM CDT Emergency [facility] Emergency Department [address] [place] [phone] Ching Rodriguez MD Freilich, Michelle Amanda, MD Croft, Alexander, MD Choi, Cheuk Ho Jeffrey, MD Physical deconditioning (Primary Dx); Inability to ambulate due to hip; Frequent falls; Pain of left hip Discharge Disposition: Discharge to a short term hospital for IP 11/07/2024 Telephone [facility] [address] [place] [phone] Jennifer Carbone RPh 11/03/2024 Documentation [facility] [address] [place] [phone] Karon Moe, ROB 10/24/2024 Telephone [facility] [address] [place] [phone] Christo Diez RPh 10/23/2024 10:06 PM CDT - 10/24/2024 4:04 AM CDT Emergency [facility] Emergency Department [address] [place] [phone] Brien Vital MD Left thigh pain (Primary Dx) Discharge Disposition: Discharge to home or self care 10/20/2024 Telephone [facility] Medicine Ophthalmology [address] [facility] 1st [place] [phone] Gavin Clark MD 10/18/2024 Documentation [facility] Medicine Scheduling [address] [place] [address] Reanna Melendez [facility] IP to OP 10/17/2024 Orders Only [facility] Medicine Infectious Diseases [address] [facility] [place] [address] [place] [phone] Jennifer Best MD Chronic hepatitis C without hepatic coma (HCC) (Primary Dx) 10/11/2024 4:14 PM CDT - 10/18/2024 1:32 PM CDT Hospital Encounter [address] [phone] Ani Cooper MD Nelson, MD Amadeo Singer, MD Bassam Caldwell Nishil Tushar, DO Dyer, Erin Leigh, MD Van Stavern, Renee B., MD Atwood, Kristy Rogers MD Blunt head trauma, initial encounter (Primary Dx); Groin pain, chronic, left; Pain of left hip; Pain of left thigh; Subluxation; Syncope and collapse; Transient, Sudden loss of vision, right; Hepatitis C antibody positive; Dislocation of temporomandibular joint, initial encounter; Palpitations; Chronic hepatitis C without hepatic coma (HCC) Discharge Disposition: Discharge to SNF from Last 3 Months Immunizations Immunization Administration Dates Next Due Influenza, Quadrivalent, Spl it, Preservative Free, Intramuscular 04/09/2019 Medical History Medical History Date Comments Diabetes mellitus Hypertension Social History Tobacco Use Types Packs/Day Years Used Date Smoking Tobacco: Every Day Cigarettes Smokeless Tobacco: Never Tobacco Cessation:Ready to Q uit: No Comments:packs/day: it depends Alcohol Use Standard Drinks/Week Comments Not Currently 0 (1 standard drink = 0.6 oz pur e alcohol) [facility] Utilities Answer Date Recorded In the past 12 months has th e Kleer, gas, oil, or water [employer] threatened to shut off services in your home? Patient unable to answer 11/10/2024 Humiliation, Afraid, Rape, and Kick questionnair e Answer Date Recorded Within the last year, have y ou been afraid of your partner or ex-partner? No 11/23/2020 Within the last year, have y ou been humiliated or emotionally abused in other ways by your partner or ex-partner? No Within the last year, have y ou been kicked, hit, slapped, or otherwise physically hurt by your partner or ex-partner? No 11/23/2020 Within the last year, have y ou been raped or forced to have any kind of sexual activity by your partner or ex-partner? No 11/23/2020 Social Connection and Isolation Panel Answer Date Recorded In a typical week, how many times do you talk on the phone with family, friends, or neighbors? Never 11/10/2024 How often do you get together with friends or re latives? Never 11/10/2024 How often do you attend baptist or jainism serv ices? Never 11/10/2024 Do you belong to any clubs o r organizations such as baptist groups, unions, fraternal or athletic groups, or school groups? No 11/10/2024 How often do you attend meet ings of the clubs or organizations you belong to? Never 11/10/2024 Are you , , di vorced, , never , or living with a partner? Never 11/10/2024 AUDIT-C Answer Date Recorded Q1: How often do you have a drink containing alc ohol? Never 11/23/2020 Q2: How many drinks containi ng alcohol do you have on a typical day when you are drinking? Patient declined 11/23/2020 Q3: How often do you have si x or more drinks on one occasion? Never 11/23/2020 Overall Financial Resource Strain (CARDIA) Answe r Date Recorded How hard is it for you to pa y for the very basics like food, housing, medical care, and heating? Very hard 11/10/2024 PHQ-2 Answer Date Recorded PHQ-2 Total Score (If total score is 3 or more points, staff should administer the PHQ-9) 1 11/10/2024 [facility] - Occupational Stress Questionnaire Answer Date Recorded Do you feel stress - tense, restless, nervous, or anxious, or unable to sleep at night because your mind is troubled all the time - these days? Very much 11/23/2020 Exercise Vital Sign Answer Date Recorde d On average, how many days pe r week do you engage in moderate to strenuous exercise (like a brisk walk)? 7 days On average, how many minutes do you engage in exercise at this level? Patient declined 11/23/2020 Hunger Vital Sign Answer Date Recorded Within the past 12 months, y ou worried that your food would run out before you got the money to buy more. Often true 11/11/19 Within the past 12 months, t he food you bought just didn't last and you didn't have money to get more. Often true 11/10/2024 PRAPARE - Transportation Answer Date Re corded In the past 12 months, has l ack of transportation kept you from medical appointments or from getting medications? Yes 10/2024 In the past 12 months, has l ack of transportation kept you from meetings, work, or from getting things needed for daily living? Yes 11/10/2024 Housing Stability Vital Sign Answer Kamron e Recorded In the last 12 months, was t here a time when you were not able to pay the mortgage or rent on time? Yes 11/23/2020 Number of Places Lived in the Last Year Not on f ile 11/23/2020 In the last 12 months, was t here a time when you did not have a steady place to sleep or slept in a mcc (including now)? Yes 11/23/2020 PHQ-9 Answer Date Recorded PHQ-9 Total Score 10 11/10/2024 Housing Stability Vital Sign Answer Kamron e Recorded In the last 12 months, was t here a time when you were not able to pay the mortgage or rent on time? Yes 11/10/2024 In the past 12 months, how m any times have you moved where you were living? 3 11/10/2024 At any time in the past 12 m [facility], were you homeless or living in a mcc (including now)? Yes 11/10/2024 Personal Safety Answer Date Recorded Have you ever been in or are you currently in a harmful physical or emotional relationship or is someone making you feel afraid or unsafe? Denies 11/09/2024 Education Answer Date Recorded What is the highest level of school you have completed or the highest degree you have received? 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 Sexual Orientation Not on file Obstetrics History Last Filed Vital Signs Vital Sign Reading Time Taken Comments Blood Pressure 147/84 11/23/2024 7:03 AM CDT Pulse 73 11/23/2024 7:03 AM CDT Temperature 36.8 C (98.2 F) 11/23/2024 7:03 AM CDT Respiratory Rate 19 11/23/2024 7:03 AM CDT Oxygen Saturation 96% 11/23/2024 7:03 AM CDT Inhaled Oxygen Concentration - - Weight 77.1 kg (169 lb 15.6 oz) 11/09/2024 6:00 PM CDT Height 175.3 cm (5' 9) 11/09/2024 6:00 PM CDT Body Mass Index 25.1 11/09/2024 6:00 PM CDT Plan of Treatment Health Maintenance Due Date Last Done Comments Albumin Creatinine Ratio, Urine 1954 Colon Cancer Screening-Colonoscopy 1954 Prostate Cancer Screening-PSA 1954 Foot Exam 1954 DTaP/Tdap/Td Vaccine (1 - Tdap) 1965 Pneumococcal vaccine 65+ (1 of 2 - PCV) 1973 Zoster Vaccine (1 of 2) 2004 Abdominal Aortic Aneurysm (A AA) Screen 08/24/2019 02/15/2017 Well Visit 65+ 08/24/2019 Influenza Vaccine (#1) 2024 04/09/2019 Hemoglobin A1C 04/14/2025 10/12/2024, 07/0 11/2024, 11/22/2020, Additional history exists Dilated Eye Exam 10/15/2025 10/15/2024 Lipid Panel 10/16/2025 10/16/2024, 11/04, 03/24/2020, Additional history exists Depression Screening 11/09/2025 11/09/2024, 11/09/2024, 10/11/2024, Additional history exists eGFR 11/21/2025 11/21/2024, 11/04, 11/19/2024, Additional history exists Fall Risk Assessment 11/23/2025 11/23/2024 Hepatitis B Screening Completed 10/15/2024 Hepatitis C Screening Completed 11/19/2024 , 11/09/2024, 10/17/2024, Additional history exists Procedures Procedure Name Priority Date/Time Associated Diagnosis Comments POCT GLUCOSE DEVICE Routine 11/23/2024 1 2:29 PM CDT POCT GLUCOSE DEVICE Routine 11/23/2024 8 :29 AM CDT POCT GLUCOSE DEVICE Routine 11/22/2024 8 :02 PM CDT POCT GLUCOSE DEVICE Routine 11/22/2024 5 :47 PM CDT POCT GLUCOSE DEVICE Routine 11/22/2024 1 2:02 PM CDT POCT GLUCOSE DEVICE Routine 11/22/2024 7 :50 AM CDT POCT GLUCOSE DEVICE Routine 11/21/2024 8 :06 PM CDT POCT GLUCOSE DEVICE Routine 11/21/2024 5 :36 PM CDT POCT GLUCOSE DEVICE Routine 11/21/2024 1 2:03 PM CDT POCT GLUCOSE DEVICE Routine 11/21/2024 9 :17 AM CDT EGFR Routine 11/21/2024 5:07 AM CDT BASIC METABOLIC PANEL Routine 11/21/2024 5:07 AM CDT POCT GLUCOSE DEVICE Routine 11/20/2024 8 :39 PM CDT POCT GLUCOSE DEVICE Routine 11/20/2024 5 :47 PM CDT POCT GLUCOSE DEVICE Routine 11/20/2024 1 2:16 PM CDT POCT GLUCOSE DEVICE Routine 11/20/2024 8 :29 AM CDT EGFR Routine 11/20/2024 4:23 AM CDT BASIC METABOLIC PANEL Routine 11/20/2024 4:23 AM CDT POCT GLUCOSE DEVICE Routine 11/19/2024 8 :36 PM CDT POCT GLUCOSE DEVICE Routine 11/19/2024 5 :31 PM CDT HEPATITIS C RNA, QUANTITATIVE, PCR Routine 11/19/2024 3:09 PM CDT POCT GLUCOSE DEVICE Routine 11/19/2024 1 2:17 PM CDT POCT GLUCOSE DEVICE Routine 11/19/2024 8 :29 AM CDT EGFR Routine 11/19/2024 3:01 AM CDT BASIC METABOLIC PANEL Routine 11/19/2024 3:01 AM CDT POCT GLUCOSE DEVICE Routine 11/18/2024 8 :10 PM CDT POCT GLUCOSE DEVICE Routine 11/18/2024 5 :42 PM CDT POCT GLUCOSE DEVICE Routine 11/18/2024 1 2:46 PM CDT POCT GLUCOSE DEVICE Routine 11/18/2024 7 :59 AM CDT EGFR Routine 11/18/2024 5:19 AM CDT BASIC METABOLIC PANEL Routine 11/18/2024 5:19 AM CDT POCT GLUCOSE DEVICE Routine 11/17/2024 8 :20 PM CDT POCT GLUCOSE DEVICE Routine 11/17/2024 5 :46 PM CDT POCT GLUCOSE DEVICE Routine 11/17/2024 1 1:44 AM CDT POCT GLUCOSE DEVICE Routine 11/17/2024 8 :11 AM CDT POCT GLUCOSE DEVICE Routine 11/16/2024 8 :06 PM CDT POCT GLUCOSE DEVICE Routine 11/16/2024 5 :30 PM CDT POCT GLUCOSE DEVICE Routine 11/16/2024 1 2:57 PM CDT POCT GLUCOSE DEVICE Routine 11/16/2024 8 :52 AM CDT POCT GLUCOSE DEVICE Routine 11/15/2024 8 :04 PM CDT POCT GLUCOSE DEVICE Routine 11/15/2024 5 :39 PM CDT POCT GLUCOSE DEVICE Routine 11/15/2024 1 :00 PM CDT POCT GLUCOSE DEVICE Routine 11/15/2024 9 :06 AM CDT POCT GLUCOSE DEVICE Routine 11/14/2024 8 :11 PM CDT POCT GLUCOSE DEVICE Routine 11/14/2024 4 :15 PM CDT POCT GLUCOSE DEVICE Routine 11/14/2024 1 1:05 AM CDT POCT GLUCOSE DEVICE Routine 11/14/2024 7 :11 AM CDT POCT GLUCOSE DEVICE Routine 11/13/2024 9 :46 PM CDT POCT GLUCOSE DEVICE Routine 11/13/2024 8 :28 PM CDT POCT GLUCOSE DEVICE Routine 11/13/2024 5 :20 PM CDT POCT GLUCOSE DEVICE Routine 11/13/2024 1 2:34 PM CDT POCT GLUCOSE DEVICE Routine 11/13/2024 8 :51 AM CDT POCT GLUCOSE DEVICE Routine 11/12/2024 8 :31 PM CDT POCT GLUCOSE DEVICE Routine 11/12/2024 5 :44 PM CDT POCT GLUCOSE DEVICE Routine 11/12/2024 1 2:19 PM CDT POCT GLUCOSE DEVICE Routine 11/12/2024 8 :52 AM CDT POCT GLUCOSE DEVICE Routine 11/11/2024 8 :08 PM CDT POCT GLUCOSE DEVICE Routine 11/11/2024 5 :[address] HIP LEFT WO CONTRAST IP Routine 11/11/2024 2:48 PM CDT POCT GLUCOSE DEVICE Routine 11/11/2024 1 2:20 PM CDT DRUGS OF ABUSE SCREEN, URINE WITHOUT CONFIRMATION Routine 11/11/2024 11:21 AM CDT POCT GLUCOSE DEVICE Routine 11/11/2024 8 :30 AM CDT EGFR Routine 11/11/2024 5:38 AM CDT DIFFERENTIAL AUTO Routine 11/11/2024 5:3 8 AM CDT COMPREHENSIVE METABOLIC PANEL Routine 11/11/2024 5:38 AM CDT CBC WITH AUTO DIFFERENTIAL Routine 11/11/2024 5:38 AM CDT POCT GLUCOSE DEVICE Routine 11/10/2024 8 :22 PM CDT POCT GLUCOSE DEVICE Routine 11/10/2024 5 :19 PM CDT POCT GLUCOSE DEVICE Routine 11/10/2024 1:06 PM CDT POCT GLUCOSE DEVICE Routine 11/10/2024 8 :18 AM CDT EGFR Routine 11/10/2024 5:32 AM CDT DIFFERENTIAL AUTO Routine 11/10/2024 5:3 2 AM CDT VITAMIN D 25 HYDROXY Routine 11/10/2024 5:32 AM CDT THYROID FUNCTION CASCADE Routine 11/10/2024 5:32 AM CDT VITAMIN B12 Routine 11/10/2024 5:32 AM CDT CBC WITH AUTO DIFFERENTIAL Routine 11/10/2024 5:32 AM CDT MAGNESIUM Routine 11/10/2024 5:32 AM CDT BASIC METABOLIC PANEL Routine 11/10/2024 5:32 AM CDT POCT GLUCOSE DEVICE Routine 11/09/2024 8 :55 PM CDT INFECTION PREVENTION DAJA AURIS PCR, SURVEILLANCE Routine 11/09/2024 9:09 AM CDT POCT GLUCOSE DEVICE Routine 11/09/2024 9 :08 AM CDT EGFR STAT 11/09/2024 5:09 AM CDT DIFFERENTIAL AUTO STAT 11/09/2024 5:0 9 AM CDT BASIC METABOLIC PANEL STAT 11/09/2024 5:09 AM CDT CBC WITH AUTO DIFFERENTIAL STAT 11/09/2024 5:09 AM CDT EGFR STAT 10/24/2024 1:42 AM CDT DIFFERENTIAL AUTO STAT 10/24/2024 1: 42 AM CDT COMPREHENSIVE METABOLIC PANEL STAT 10/24/2024 1:42 AM CDT CBC WITH AUTO DIFFERENTIAL STAT 10/24/2024 1:42 AM CDT POCT GLUCOSE DEVICE Routine 10/24/2024 1 2:42 AM CDT POCT KETONE, BLOOD Routine 10/23/2024 10 :38 PM CDT POCT GLUCOSE DEVICE Routine 10/23/2024 8 :57 PM CDT INFECTION PREVENTION DAJA AURIS PCR, SURVEILLANCE Routine 10/18/2024 11:02 AM CDT POCT GLUCOSE DEVICE Routine 10/18/2024 1 1:01 AM CDT POCT GLUCOSE DEVICE Routine 10/18/2024 8 :41 AM CDT TRANSTHORACIC ECHO (TTE) COMPLETE W DOPPLER/CF W CONTRAST W BUBBLE Pending Discharge 10/18/2024 8:25 AM CDT MCT - MOBILE CARDIAC TELEMETRY EVENT MONITOR Routine 10/18/2024 8:21 AM CDT Palpitations EGFR Routine 10/17/2024 10:46 PM CDT CBC WITHOUT DIFFERENTIAL Routine 10/17/2024 10:46 PM CDT BASIC METABOLIC PANEL Routine 10/17/2024 10:46 PM CDT MRI BRAIN INCL ORBITS W WO CONTRAST Pending Discharge 10/17/2024 9:32 PM CDT POCT GLUCOSE DEVICE Routine 10/17/2024 7 :43 PM CDT US LIVER Pending Discharge 10/17/2024 6:25 PM CDT POCT GLUCOSE DEVICE Routine 10/17/2024 4 :33 PM CDT POCT GLUCOSE DEVICE Routine 10/17/2024 1 1:42 AM CDT POCT GLUCOSE DEVICE Routine 10/17/2024 8 :47 AM CDT LIPID PANEL Routine 10/16/2024 8:48 PM CDT HEMOGLOBIN A1C STAT 10/11/2024 5:[address] ABDOMEN PELVIS W CONTRAST Routine 02/15/2017 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 Last 3 Months or Most Recently Relevant to Health Maintenance Results * POCT glucose (11/23/2024 12:29 PM CDT) Glucose, POC 173 70 - 199 mg/dL Blood 11/23/2024 12:2 9 PM CDT 11/23/2024 12:29 PM CDT us Saim Hernandez DO LAB POCT ORDERABLES - DEVICE Fin al Result [address] [address] * POCT glucose (11/23/2024 8:29 AM CDT) Glucose, POC 92 70 - 199 mg/dL Blood 11/23/2024 8:29 AM CDT 11/23/2024 8:29 AM CDT Saim Hernandez DO LAB POCT ORDERABLES - DEVICE Fin al Result Performing Organization Address [facility] Co de Phone Number [address] [place] [address] * (ABNORMAL) POCT glucose (11/22/2024 8:02 PM CDT) Glucose, POC 248(H) 70 - 199 mg/dL Blood 11/22/2024 8:02 PM CDT 11/22/2024 8:02 PM CDT SaZooppa Hernandez DO LAB POCT ORDERABLES - DEVICE Fin al Result Performing Organization Address [facility] Co de Phone Number [address] [address] * POCT glucose (11/22/2024 5:47 PM CDT) Glucose, POC 198 70 - 199 mg/dL Blood 11/22/2024 5:47 PM CDT 11/22/2024 5:47 PM CDT Saim Hernandez DO LAB POCT ORDERABLES - DEVICE Fin al Result Performing Organization Address [facility] Co de Phone Number [address] [address] * (ABNORMAL) POCT glucose (11/22/2024 12:02 PM CDT) Glucose, POC 221(H) 70 - 199 mg/dL Blood 11/22/2024 12:0 2 PM CDT 11/22/2024 12:02 PM CDT [facility] POCT ORDERABLES - DEVICE Fin al Result Performing Organization Address [facility] Co de Phone Number JU [address] [place] [address] * POCT glucose (11/22/2024 7:50 AM CDT) Glucose, POC 153 70 - 199 mg/dL Blood 11/22/2024 7:50 AM CDT 11/22/2024 7:50 AM CDT [facility] LAB POCT ORDERABLES - DEVICE Fin al Result Performing Organization Address [facility] Co de Phone Number [address] [place] [address] * (ABNORMAL) POCT glucose (11/21/2024 8:06 PM CDT) Glucose, POC 230(H) 70 - 199 mg/dL Glucose comment 1 RN/MD Notified [facility] Blood 11/21/2024 8:06 PM CDT 11/21/2024 8:06 PM CDT [facility] DO LAB POCT ORDERABLES - DEVICE Fin al Result Performing Organization Address City/[facility] Co de Phone Number [address] [place] [address] * (ABNORMAL) POCT glucose (11/21/2024 5:36 PM CDT) Glucose, POC 216(H) 70 - 199 mg/dL Blood 11/21/2024 5:36 PM CDT 11/21/2024 5:36 PM CDT Saim Hernandez DO LAB POCT ORDERABLES - DEVICE Fin al Result Performing Organization Address [facility] Co de Phone Number [address] [address] * (ABNORMAL) POCT glucose (11/21/2024 12:03 PM CDT) Glucose, POC 220(H) 70 - 199 mg/dL Blood 11/21/2024 12:0 3 PM CDT 11/21/2024 12:03 PM CDT Saim Hernandez DO LAB POCT ORDERABLES - DEVICE Fin al Result Performing Organization Address [facility] Co de Phone Number [address] [place] [address] * POCT glucose (11/21/2024 9:17 AM CDT) Glucose, POC 114 70 - 199 mg/dL Blood 11/21/2024 9:17 AM CDT 11/21/2024 9:17 AM CDT Saim Hernandez DO LAB POCT ORDERABLES - DEVICE Fin al Result Performing Organization Address [facility] Co de Phone Number [address] [address] * eGFR (11/21/2024 5:07 AM CDT) eGFR >90 >=60 mL/min/1. 73 m2 Comment: Interpretive Data Reference Interval Normal >/= 90 mL/min/1.73m2 Mildly decreased* 60 - 89 mL/min/1.73m2 Mildly to moderately decreased 45 - 59 mL/min/1.73m2 Moderately to severely decreased 30 - 44 mL/min/1.73m2 Severely decreased 15 - 29 mL/min/1.73m2 Kidney Failure < 15 mL/min/1.73m2 *Relative to young adult level Estimated glomerular filtration rate is determined by the 2020 CKD-EPI equation recommended by the National Kidney Foundation (A Unifying Approach to GFR Estimation: Recommendations of the NKF-ASK Task Force on Reassessing the Inclusion of Race in Diagnosing Kidney Disease, JASN 2020). The CKD-EPI equation should not be used for patients with unstable renal function and has not been validated in children and those over 70. Current interpretive data was last reviewed 2021. Blood 11/21/2024 5:07 AM CDT 11/21/2024 5:19 AM CDT us Adri Herron MD LAB BLOOD ORDERABLE S Final Result [facility] [address] [facility] [place] [address] * (ABNORMAL) Basic metabolic panel (11/21/2024 5:07 AM CDT) Sodium 137 135 - 145 mmol/L Potassium, pl 4.2 3.3 - 4.9 mmol/L [facility] Chloride 103 97 - 110 mmol/L [facility] CO2 24 22 - 32 mmol/L [facility] Anion gap 10 2 - 15 mmol/L [facility] BUN 12 6 - 25 mg/dL [facility] Creatinine 0.67(L) 0.80 - 1.30 mg/dL [facility] Glucose 140 70 - 199 mg/dL [facility] Comment: Interpretive Data Fasting glucose >/= 126 mg/dl is diagnostic for diabetes. Fasting is defined as no caloric intake for at least 8 hours. Fasting glucose between 100 mg/dl to 125 mg/dl is diagnostic of prediabetes. In a patient with classic symptoms of hyperglycemia or hyperglycemic crisis, a random glucose >/= 200 mg/dl is diagnostic for diabetes. In the absence of unequivocal hyperglycemia, results should be confirmed by repeat testing. The classification and Diagnosis of Diabetes Diabetes Care 2021; 46: S19-S40. Current interpretive data was last revised 2022. Calcium 9.3 8.5 - 10.3 mg/dL [facility] Blood 11/21/2024 5:07 AM CDT 11/21/2024 5:19 AM CDT Adri Herron MD LAB BLOOD ORDERABLE S Final Result Performing Organization Address City/[facility] Co de Phone Number JU [address] [place] [address] * (ABNORMAL) POCT glucose (11/20/2024 8:39 PM CDT) Glucose, POC 231(H) 70 - 199 mg/dL Blood 11/20/2024 8:39 PM CDT 11/20/2024 8:39 PM CDT Adri Herron MD LAB POCT ORDERABLES - DEVICE Final Result Performing Organization Address [facility] Co de Phone Number [address] [place] [address] * POCT glucose (11/20/2024 5:47 PM CDT) Glucose, POC 181 70 - 199 mg/dL Blood 11/20/2024 5:47 PM CDT 11/20/2024 5:47 PM CDT Adri Herron MD LAB POCT ORDERABLES - DEVICE Final Result Performing Organization Address [facility] [facility] Co de Phone Number [address] [place] [address] * (ABNORMAL) POCT glucose (11/20/2024 12:16 PM CDT) Glucose, POC 237(H) 70 - 199 mg/dL Blood 11/20/2024 12:1 6 PM CDT 11/20/2024 12:16 PM CDT Adri Herron MD LAB POCT ORDERABLES - DEVICE Final Result Performing Organization Address City/[facility]/ZIP Co de Phone Number CERNER [address] [place] [address] * POCT glucose (11/20/2024 8:29 AM CDT) Glucose, POC 137 70 - 199 mg/dL Blood 11/20/2024 8:29 AM CDT 11/20/2024 8:29 AM CDT Adri Herron MD LAB POCT ORDERABLES - DEVICE Final Result Performing Organization Address City/[facility] Co de Phone Number JU [address] [address] * eGFR (11/20/2024 4:23 AM CDT) [facility] eGFR >90 >=60 mL/min/1. 73 m2 Comment: Interpretive Data Reference Interval Normal >/= 90 mL/min/1.73m2 Mildly decreased* 60 - 89 mL/min/1.73m2 Mildly to moderately decreased 45 - 59 mL/min/1.73m2 Moderately to severely decreased 30 - 44 mL/min/1.73m2 Severely decreased 15 - 29 mL/min/1.73m2 Kidney Failure < 15 mL/min/1.73m2 *Relative to young adult level Estimated glomerular filtration rate is determined by the 2020 CKD-EPI equation recommended by the National Kidney Foundation (A Unifying Approach to GFR Estimation: Recommendations of the NKF-ASK Task Force on Reassessing the Inclusion of Race in Diagnosing Kidney Disease, JASN 2020). The CKD-EPI equation should not be used for patients with unstable renal function and has not been validated in children and those over 70. Current interpretive data was last reviewed 2021. Blood 11/20/2024 4:23 AM CDT 11/20/2024 4:59 AM CDT us Adri Herron MD LAB BLOOD ORDERABLE S Final Result JU [address] [place] [address] * (ABNORMAL) Basic metabolic panel (11/20/2024 4:23 AM CDT) Pathologist [facility] Sodium 138 135 - 145 mmol/L Potassium, pl 4.1 3.3 - 4.9 mmol/L [facility] Chloride 102 97 - 110 mmol/L [facility] CO2 27 22 - 32 mmol/L [facility] Anion gap 9 2 - 15 mmol/L [facility] BUN 12 6 - 25 mg/dL [facility] Creatinine 0.73(L) 0.80 - 1.30 mg/dL [facility] Glucose 173 70 - 199 mg/dL [facility] Comment: Interpretive Data Fasting glucose >/= 126 mg/dl is diagnostic for diabetes. Fasting is defined as no caloric intake for at least 8 hours. Fasting glucose between 100 mg/dl to 125 mg/dl is diagnostic of prediabetes. In a patient with classic symptoms of hyperglycemia or hyperglycemic crisis, a random glucose >/= 200 mg/dl is diagnostic for diabetes. In the absence of unequivocal hyperglycemia, results should be confirmed by repeat testing. The classification and Diagnosis of Diabetes Diabetes Care 2021; 46: S19-S40. Current interpretive data was last revised 2022. Calcium 9.3 8.5 - 10.3 mg/dL [facility] Blood 11/20/2024 4:23 AM CDT 11/20/2024 4:59 AM CDT Adri Herron MD LAB BLOOD ORDERABLE S Final Result [facility] [address] [facility] [place] [address] * (ABNORMAL) POCT glucose (11/19/2024 8:36 PM CDT) Pathologist [facility] Glucose, POC 265(H) 70 - 199 mg/dL Blood 11/19/2024 8:36 PM CDT 11/19/2024 8:36 PM CDT Adri Herron MD LAB POCT ORDERABLES - DEVICE Final Result Performing Organization Address City/[facility]/ZIP Co de Phone Number JU [address] [address] * (ABNORMAL) POCT glucose (11/19/2024 5:31 PM CDT) [facility] Glucose, POC 221(H) 70 - 199 mg/dL Glucose comment 1 Follow Protocol JU Glucose comment 2 RN/MD Notified JU Blood 11/19/2024 5:31 PM CDT 11/19/2024 5:31 PM CDT [facility] Nghia Herron MD LAB POCT ORDERABLES - DEVICE Final Result Performing Organization Address City/[facility] Co de Phone Number JU [address] [address] * (ABNORMAL) Hepatitis C (HCV) RNA PCR, quantitative Blood (11/19/2024 3:09 PM CDT) [facility] HCV RNA result Detected( A) [facility] Comment: The quantifiable range of this assay is 15 IU/mL to 100,000,000 IU/mL (1.18 log IU/mL to 8.00 log IU/mL). Testing was performed by the [employer] 6800 HCV Test ([employer] Testing performed at [facility] Current Interpretive Data was last revised on 2020 Testing performed by: [facility], [address] [place]., [address] HCV RNA IU/mL <15 IUnits/mL JU Comment:Testing performed by : [facility], [address] [place]., [address] HCV RNA log IU/mL <1.18 log IUnits/mL JU KUMAR Comment:Testing performed by : [facility], [address] [place]., [address] Blood 11/19/2024 3:09 PM CDT 11/19/2024 6:04 PM CDT Adri Herron MD LAB MICROBIOLOGY - GENERAL ORDERABLES Final Result Performing Organization Address [facility] de Phone Number [address] [place] [address] [facility] * (ABNORMAL) POCT glucose (11/19/2024 12:17 PM CDT) [facility] Glucose, POC 209(H) 70 - 199 mg/dL Glucose comment 1 RN/MD Notified [facility] Glucose comment 2 Follow Protocol [facility] Blood 11/19/2024 12:1 7 PM CDT 11/19/2024 12:17 PM CDT Adri Herron MD LAB POCT ORDERABLES - DEVICE Final Result Performing Organization Address [facility] de Phone Number [address] [place] [address] * POCT glucose (11/19/2024 8:29 AM CDT) [facility] Glucose, POC 138 70 - 199 mg/dL Blood 11/19/2024 8:29 AM CDT 11/19/2024 8:29 AM CDT Adri Herron MD LAB POCT ORDERABLES - DEVICE Final Result Performing Organization Address [facility] de Phone Number [address] [place] [address] * eGFR (11/19/2024 3:01 AM CDT) [facility] eGFR >90 >=60 mL/min/1. 73 m2 Comment: Interpretive Data Reference Interval Normal >/= 90 mL/min/1.73m2 Mildly decreased* 60 - 89 mL/min/1.73m2 Mildly to moderately decreased 45 - 59 mL/min/1.73m2 Moderately to severely decreased 30 - 44 mL/min/1.73m2 Severely decreased 15 - 29 mL/min/1.73m2 Kidney Failure < 15 mL/min/1.73m2 *Relative to young adult level Estimated glomerular filtration rate is determined by the 2020 CKD-EPI equation recommended by the National Kidney Foundation (A Unifying Approach to GFR Estimation: Recommendations of the NKF-ASK Task Force on Reassessing the Inclusion of Race in Diagnosing Kidney Disease, JASN 202). The CKD-EPI equation should not be used for patients with unstable renal function and has not been validated in children and those over 70. Current interpretive data was last reviewed 2021. Blood 11/19/2024 3:01 AM CDT 11/19/2024 3:40 AM CDT Adri Herron MD LAB BLOOD ORDERABLE S Final Result [place] [id number] [facility] Department [place] [address] * (ABNORMAL) Basic metabolic panel (11/19/2024 3:01 AM CDT) Sodium 135 135 - 145 mmol/L Potassium, pl 4.2 3.3 - 4.9 mmol/L [facility] Chloride 100 97 - 110 mmol/L [facility] CO2 26 22 - 32 mmol/L [facility] Anion gap 9 2 - 15 mmol/L [facility] BUN 14 6 - 25 mg/dL [facility] Creatinine 0.76(L) 0.80 - 1.30 mg/dL [facility] Glucose 206(H) 70 - 199 mg/dL [facility] Comment: Interpretive Data Fasting glucose >/= 126 mg/dl is diagnostic for diabetes. Fasting is defined as no caloric intake for at least 8 hours. Fasting glucose between 100 mg/dl to 125 mg/dl is diagnostic of prediabetes. In a patient with classic symptoms of hyperglycemia or hyperglycemic crisis, a random glucose >/= 200 mg/dl is diagnostic for diabetes. In the absence of unequivocal hyperglycemia, results should be confirmed by repeat testing. The classification and Diagnosis of Diabetes Diabetes Care 2022; 46: S19-S40. Current interpretive data was last revised 2022. Calcium 9.1 8.5 - 10.3 mg/dL [facility] Blood 11/19/2024 3:01 AM CDT 11/19/2024 3:40 AM CDT Adri Herron MD LAB BLOOD ORDERABLE S Final Result Performing Organization Address [facility] Co de Phone Number [address] [place] [address] * POCT glucose (11/18/2024 8:10 PM CDT) Glucose, POC 167 70 - 199 mg/dL Blood 11/18/2024 8:10 PM CDT 11/18/2024 8:10 PM CDT Adri Herron MD LAB POCT ORDERABLES - DEVICE Final Result Performing Organization Address [facility] de Phone Number [address] [place] [address] * POCT glucose (11/18/2024 5:42 PM CDT) Glucose, POC 171 70 - 199 mg/dL Blood 11/18/2024 5:42 PM CDT 11/18/2024 5:42 PM CDT Adri Herron MD LAB POCT ORDERABLES - DEVICE Final Result Performing Organization Address [facility] Co de Phone Number [address] [place] [address] * (ABNORMAL) POCT glucose (11/18/2024 12:46 PM CDT) Glucose, POC 232(H) 70 - 199 mg/dL Blood 11/18/2024 12:4 6 PM CDT 11/18/2024 12:46 PM CDT Adri Herron MD LAB POCT ORDERABLES - DEVICE Final Result Performing Organization Address City/[facility]/ZIP Co de Phone Number JU [address] [place] [address] * POCT glucose (11/18/2024 7:59 AM CDT) Glucose, POC 167 70 - 199 mg/dL Blood 11/18/2024 7:59 AM CDT 11/18/2024 7:59 AM CDT Adri Herron MD LAB POCT ORDERABLES - DEVICE Final Result Performing Organization Address [facility] de Phone Number JU [address] [address] * eGFR (11/18/2024 5:19 AM CDT) eGFR >90 >=60 mL/min/1. 73 m2 Comment: Interpretive Data Reference Interval Normal >/= 90 mL/min/1.73m2 Mildly decreased* 60 - 89 mL/min/1.73m2 Mildly to moderately decreased 45 - 59 mL/min/1.73m2 Moderately to severely decreased 30 - 44 mL/min/1.73m2 Severely decreased 15 - 29 mL/min/1.73m2 Kidney Failure < 15 mL/min/1.73m2 *Relative to young adult level Estimated glomerular filtration rate is determined by the 2020 CKD-EPI equation recommended by the National Kidney Foundation (A Unifying Approach to GFR Estimation: Recommendations of the NKF-ASK Task Force on Reassessing the Inclusion of Race in Diagnosing Kidney Disease, JASN 2020). The CKD-EPI equation should not be used for patients with unstable renal function and has not been validated in children and those over 70. Current interpretive data was last reviewed 2021. Blood 11/18/2024 5:19 AM CDT 11/18/2024 5:53 AM CDT Joaquim Krause MD LAB BLOOD ORDERABLES Final R esult Performing Organization Address City/[facility]/ZIP Co de Phone Number JU [address] [place] [address] * (ABNORMAL) Basic metabolic panel (11/18/2024 5:19 AM CDT) Sodium 136 135 - 145 mmol/L Potassium, pl 4.3 3.3 - 4.9 mmol/L [facility] Chloride 102 97 - 110 mmol/L [facility] CO2 25 22 - 32 mmol/L [facility] Anion gap 9 2 - 15 mmol/L [facility] BUN 17 6 - 25 mg/dL [facility] Creatinine 0.74(L) 0.80 - 1.30 mg/dL [facility] Glucose 186 70 - 199 mg/dL [facility] Comment: Interpretive Data Fasting glucose >/= 126 mg/dl is diagnostic for diabetes. Fasting is defined as no caloric intake for at least 8 hours. Fasting glucose between 100 mg/dl to 125 mg/dl is diagnostic of prediabetes. In a patient with classic symptoms of hyperglycemia or hyperglycemic crisis, a random glucose >/= 200 mg/dl is diagnostic for diabetes. In the absence of unequivocal hyperglycemia, results should be confirmed by repeat testing. The classification and Diagnosis of Diabetes Diabetes Care 2021; 46: S19-S40. Current interpretive data was last revised 2022. Calcium 9.2 8.5 - 10.3 mg/dL [facility] Blood 11/18/2024 5:19 AM CDT 11/18/2024 5:53 AM CDT Joaquim Krause MD LAB BLOOD ORDERABLES Final R esult Performing Organization Address City/[facility]/ZIP Co de Phone Number JU [address] [place] [address] * POCT glucose (11/17/2024 8:20 PM CDT) Glucose, POC 189 70 - 199 mg/dL Blood 11/17/2024 8:20 PM CDT 11/17/2024 8:20 PM CDT us Saim Hernandez DO LAB POCT ORDERABLES - DEVICE Fin al Result Performing Organization Address [facility] Co de Phone Number [address] [place] [address] * POCT glucose (11/17/2024 5:46 PM CDT) Glucose, POC 196 70 - 199 mg/dL Glucose comment 1 RN/MD Notified [facility] Blood 11/17/2024 5:46 PM CDT 11/17/2024 5:46 PM CDT us Saim Hernandez DO LAB POCT ORDERABLES - DEVICE Fin al Result Performing Organization Address [facility] de Phone Number [address] [address] * POCT glucose (11/17/2024 11:44 AM CDT) Glucose, POC 183 70 - 199 mg/dL Glucose comment 1 RN/MD Notified [facility] Blood 11/17/2024 11:4 4 AM CDT 11/17/2024 11:44 AM CDT us Saim Hernandez DO LAB POCT ORDERABLES - DEVICE Fin al Result Performing Organization Address [facility] Co de Phone Number [address] [place] [address] * POCT glucose (11/17/2024 8:11 AM CDT) Glucose, POC 159 70 - 199 mg/dL Glucose comment 1 RN/MD Notified [facility] Blood 11/17/2024 8:11 AM CDT 11/17/2024 8:11 AM CDT us Saim Hernandez DO LAB POCT ORDERABLES - DEVICE Fin al Result Performing Organization Address City/[facility]/ZIP Co de Phone Number JU [address] [place] [address] * POCT glucose (11/16/2024 8:06 PM CDT) Glucose, POC 163 70 - 199 mg/dL Blood 11/16/2024 8:06 PM CDT 11/16/2024 8:06 PM CDT Saim Hernandez DO LAB POCT ORDERABLES - DEVICE Fin al Result Performing Organization Address [facility] Co de Phone Number JU [address] [place] [address] * POCT glucose (11/16/2024 5:30 PM CDT) Glucose, POC 161 70 - 199 mg/dL Glucose comment 1 RN/MD Notified [facility] Glucose comment 2 Follow Protocol [facility] Blood 11/16/2024 5:30 PM CDT 11/16/2024 5:30 PM CDT Saim Hernandez DO LAB POCT ORDERABLES - DEVICE Fin al Result Performing Organization Address [facility] Co de Phone Number JU [address] [place] [address] * POCT glucose (11/16/2024 12:57 PM CDT) Glucose, POC 136 70 - 199 mg/dL Blood 11/16/2024 12:5 7 PM CDT 11/16/2024 12:57 PM CDT Saim Hernandez DO LAB POCT ORDERABLES - DEVICE Fin al Result Performing Organization Address City/[facility]/ZIP Co de Phone Number JU [address] [place] [address] * POCT glucose (11/16/2024 8:52 AM CDT) Glucose, POC 99 70 - 199 mg/dL Blood 11/16/2024 8:52 AM CDT 11/16/2024 8:52 AM CDT Saim Hernandez DO LAB POCT ORDERABLES - DEVICE Fin al Result Performing Organization Address City/[facility]/ZIP Co de Phone Number JU [address] [place] [address] * POCT glucose (11/15/2024 8:04 PM CDT) Glucose, POC 181 70 - 199 mg/dL Blood 11/15/2024 8:04 PM CDT 11/15/2024 8:04 PM CDT [facility] Hernandez DO LAB POCT ORDERABLES - DEVICE Fin al Result Performing Organization Address [facility] Co de Phone Number FLOR[address] [place] [address] * POCT glucose (11/15/2024 5:39 PM CDT) Glucose, POC 156 70 - 199 mg/dL Glucose comment 1 RN/MD Notified [facility] Blood 11/15/2024 5:39 PM CDT 11/15/2024 5:39 PM CDT [facility] Hernandez DO LAB POCT ORDERABLES - DEVICE Fin al Result Performing Organization Address City/[facility] Co de Phone Number [address] [place] [address] * POCT glucose (11/15/2024 1:00 PM CDT) Glucose, POC 127 70 - 199 mg/dL Blood 11/15/2024 1:00 PM CDT 11/15/2024 1:00 PM CDT Sa Hernandez DO LAB POCT ORDERABLES - DEVICE Fin al Result Performing Organization Address [facility] Co de Phone Number [address] [place] [address] * POCT glucose (11/15/2024 9:06 AM CDT) Glucose, POC 109 70 - 199 mg/dL Glucose comment 1 RN/MD Notified [facility] Blood 11/15/2024 9:06 AM CDT 11/15/2024 9:06 AM CDT [facility] Hernandez DO LAB POCT ORDERABLES - DEVICE Fin al Result Performing Organization Address [facility] Co de Phone Number [address] [place] [address] * (ABNORMAL) POCT glucose (11/14/2024 8:11 PM CDT) Glucose, POC 218(H) 70 - 199 mg/dL Blood 11/14/2024 8:11 PM CDT 11/14/2024 8:11 PM CDT Hailey Hong MD LAB POCT ORDERABLES - DEVICE Final Result Performing Organization Address [facility] Co de Phone Number [address] [place] [address] * (ABNORMAL) POCT glucose (11/14/2024 4:15 PM CDT) Glucose, POC 245(H) 70 - 199 mg/dL Glucose comment 1 RN/MD Notified [facility] Blood 11/14/2024 4:15 PM CDT 11/14/2024 4:15 PM CDT us Hailey Hong MD LAB POCT ORDERABLES - DEVICE Final Result Performing Organization Address [facility] Co de Phone Number [address] [address] * POCT glucose (11/14/2024 11:05 AM CDT) Glucose, POC 182 70 - 199 mg/dL Glucose comment 1 RN/MD Notified [facility] Blood 11/14/2024 11:0 5 AM CDT 11/14/2024 11:05 AM CDT Hailey Hong MD LAB POCT ORDERABLES - DEVICE Final Result Performing Organization Address [facility] Co de Phone Number [address] [address] * POCT glucose (11/14/2024 7:11 AM CDT) Glucose, POC 115 70 - 199 mg/dL Glucose comment 1 RN/MD Notified [facility] Blood 11/14/2024 7:11 AM CDT 11/14/2024 7:11 AM CDT Hailey Hong MD LAB POCT ORDERABLES - DEVICE Final Result Performing Organization Address [facility] Co de Phone Number [address] [place] [address] * POCT glucose (11/13/2024 9:46 PM CDT) Glucose, POC 136 70 - 199 mg/dL Blood 11/13/2024 9:46 PM CDT 11/13/2024 9:46 PM CDT Hailey Hong MD LAB POCT ORDERABLES - DEVICE Final Result Performing Organization Address [facility] Co de Phone Number [address] [place] [address] * (ABNORMAL) POCT glucose (11/13/2024 8:28 PM CDT) Glucose, POC 209(H) 70 - 199 mg/dL Blood 11/13/2024 8:28 PM CDT 11/13/2024 8:28 PM CDT Hailey Hong MD LAB POCT ORDERABLES - DEVICE Final Result Performing Organization Address [facility] Co de Phone Number [address] [place] [address] * POCT glucose (11/13/2024 5:20 PM CDT) Glucose, POC 167 70 - 199 mg/dL Glucose comment 1 RN/MD Notified [facility] Blood 11/13/2024 5:20 PM CDT 11/13/2024 5:20 PM CDT Hailey Hong MD LAB POCT ORDERABLES - DEVICE Final Result Performing Organization Address [facility] de Phone Number [address] [address] * POCT glucose (11/13/2024 12:34 PM CDT) Glucose, POC 153 70 - 199 mg/dL Blood 11/13/2024 12:3 4 PM CDT 11/13/2024 12:34 PM CDT Hailey Hong MD LAB POCT ORDERABLES - DEVICE Final Result Performing Organization Address [facility] Co de Phone Number [address] [address] * POCT glucose (11/13/2024 8:51 AM CDT) Glucose, POC 134 70 - 199 mg/dL Glucose comment 1 RN/MD Notified [facility] Blood 11/13/2024 8:51 AM CDT 11/13/2024 8:51 AM CDT Hailey Hong MD LAB POCT ORDERABLES - DEVICE Final Result Performing Organization Address [facility] de Phone Number [address] [place] [address] * POCT glucose (11/12/2024 8:31 PM CDT) Glucose, POC 165 70 - 199 mg/dL Blood 11/12/2024 8:31 PM CDT 11/12/2024 8:31 PM CDT Hailey Hong MD LAB POCT ORDERABLES - DEVICE Final Result Performing Organization Address [facility] de Phone Number [address] [address] * POCT glucose (11/12/2024 5:44 PM CDT) Glucose, POC 140 70 - 199 mg/dL Glucose comment 1 RN/ Notified [facility] Blood 11/12/2024 5:44 PM CDT 11/12/2024 5:44 PM CDT Hailey Hong MD LAB POCT ORDERABLES - DEVICE Final Result Performing Organization Address [facility] de Phone Number [address] [place] [address] * POCT glucose (11/12/2024 12:19 PM CDT) Glucose, POC 182 70 - 199 mg/dL Blood 11/12/2024 12:1 9 PM CDT 11/12/2024 12:19 PM CDT Hailey Hong MD LAB POCT ORDERABLES - DEVICE Final Result Performing Organization Address City/[facility]/ZIP Co de Phone Number [address] [place] [address] * POCT glucose (11/12/2024 8:52 AM CDT) Glucose, POC 117 70 - 199 mg/dL Blood 11/12/2024 8:52 AM CDT 11/12/2024 8:52 AM CDT Hailey Hong MD LAB POCT ORDERABLES - DEVICE Final Result Performing Organization Address [facility] Co de Phone Number [address] [place] [address] * POCT glucose (11/11/2024 8:08 PM CDT) Glucose, POC 191 70 - 199 mg/dL Blood 11/11/2024 8:08 PM CDT 11/11/2024 8:08 PM CDT Hailey Hong MD LAB POCT ORDERABLES - DEVICE Final Result Performing Organization Address [facility] Co de Phone Number [address] [place] [address] * POCT glucose (11/11/2024 5:19 PM CDT) Glucose, POC 157 70 - 199 mg/dL Glucose comment 1 RN/MD Notified [facility] Blood 11/11/2024 5:19 PM CDT 11/11/2024 5:19 PM CDT Hailey Hong MD LAB POCT ORDERABLES - DEVICE Final Result Performing Organization Address City/[facility]/ZIP Co de Phone Number [address] [place] [address] * CT Hip Left WO Contrast (11/11/2024 2:48 PM CDT) Anatomical Region Laterality Modality Lower Extremities Left Computed Tomog eneida 11/11/2024 3:10 PM CDT Narrative 11/11/2024 3:27 PM CDT EXAM DESCRIPTION: CT HIP LEFT WO CONTRAST REASON FOR STUDY: Hip pain Hip pain, pt states he fell on left side a month ago TECHNIQUE: CT scan of the left hip was performed without intravenous contrast. Reconstructed coronal and sagittal MPR images reviewed. Automated exposure control was used as a dose optimization technique for this examination. COMPARISON: X-rays left hip 10/11/[address] pelvis 10/03/2024 FINDINGS: Normal mineralization. No acute fracture or dislocation. There is joint space narrowing superiorly on this nonweightbearing view. Subchondral cyst formation is seen of the femoral head and roof of the acetabulum. Rim of osteophyte formation is seen of the femoral head neck junction. Severe osteoarthritis of the left hip. Chondrocalcinosis pubic symphysis. There are bridging osteophytes along the anterior aspect of the sacroiliac joint. Soft tissues demonstrate no free fluid collection of the left hemipelvis. No adenopathy by size criteria. On limited view is mild thickening of the visualized left bladder wall. This is nonspecific and could be due to under filling. Diffuse thickening and similar appearance of the entire bladder on 10/03/2024. Correlate clinically for any evidence of urinary tract infection. This could also be exaggerated by under filling. There is atherosclerotic change. No hematoma is seen of the soft tissues. IMPRESSION: 1. No acute fracture. 2. Severe osteoarthritis left hip. 3. On limited view is mild thickening of the visualized left bladder wall. This is nonspecific and could be due to under filling. Diffuse thickening and similar appearance of the entire bladder on 10/03/2024. Correlate clinically for any evidence of urinary tract infection. This could also be exaggerated by under filling. THIS IS AN ELECTRONICALLY VERIFIED FINAL REPORT 11/11/2024 3:27 PM - Electronically signed by Obi JIMENEZ T: Report ID: [id number] Reading Location: [id number] Procedure Note Obi Millan MD - 11/11/2024 EXAM DESCRIPTION: CT HIP LEFT WO CONTRAST REASON FOR STUDY: Hip pain Hip pain, pt states he fell on left side a month ago TECHNIQUE: CT scan of the left hip was performed without intravenous contrast. Reconstructed coronal and sagittal MPR images reviewed.Automated exposure control was used as a dose optimization technique for this examination. COMPARISON: X-rays left hip 10/11/[address] pelvis 10/03/2024 FINDINGS: Normal mineralization. No acute fracture or dislocation. There is joint space narrowing superiorly on this nonweightbearing view. Subchondral cyst formation is seen of the femoral head and roof of the acetabulum. Rim of osteophyte formation is seen of the femoral head neck junction. Severe osteoarthritis of the left hip. Chondrocalcinosis pubic symphysis. There are bridging osteophytes alongthe anterior aspect of the sacroiliac joint. Soft tissues demonstrate no free fluid collection of the left hemipelvis.No adenopathy by size criteria. On limited view is mild thickening of the visualized left bladder wall. This is nonspecific and could be due tounder filling. Diffuse thickening and similar appearance of the entire bladderon 10/03/2024. Correlate clinically for any evidence of urinary tractinfection. This could also be exaggerated by under filling. There isatherosclerotic change. No hematoma is seen of the soft tissues. IMPRESSION: 1. No acute fracture. 2. Severe osteoarthritis left hip. 3. On limited view is mild thickening of the visualized left bladderwall. This is nonspecific and could be due to under filling. Diffuse thickeningand similar appearance of the entire bladder on 10/03/2024. Correlateclinically for any evidence of urinary tract infection. This could also beexaggerated by under filling. THIS IS AN ELECTRONICALLY VERIFIED FINAL REPORT 11/11/2024 3:27 PM - Electronically signed by Obi Millan M.D. MJ T: Report ID: [id number] Reading Location: [id number] Hailey Hong MD IM CT PROCEDURES F inal Result * POCT glucose (11/11/2024 12:20 PM CDT) Glucose, POC 146 70 - 199 mg/dL Glucose comment 1 RN/MD Notified JU Blood 11/11/2024 12:2 0 PM CDT 11/11/2024 12:20 PM CDT Hailey Hong MD LAB POCT ORDERABLES - DEVICE Final Result JU [id number] [facility] Department [place] [address] * (ABNORMAL) Drugs of Abuse Screen, Urine without Confirmation (11/11/2024 11:21 AM CDT) Amphetamine, ur Not Detected CutOff 500ng/mL Comment: Interpretive Data - Amphetamines: Samples containing greater than 500 ng/mL d-methamphetamine or other cross-reacting amphetamine compounds are reported as positive. Amphetamine immunoassays are subject to significant false positive rates due to cross-reactivity of non-amphetamine drugs. Confirmatory testing required for definitive results. Current Interpretive Data was last reviewed 2022. Barbiturates, ur Not Detected CutOff 200ng/mL [facility] Comment: Interpretive Data - Barbiturates: Samples containing greater than 200 ng/mL secobarbital or other cross-reacting barbiturate compounds are reported as positive. False positive and false negative results are possible. Confirmatory testing required for definitive results. Current Interpretive Data was last reviewed 2022. Benzodiazepines, ur Not Detected CutOff 100ng/mL [facility] Comment: Interpretive Data - Benzodiazepines: Samples containing greater than 100 ng/mL nordiazepam or other cross-reacting compounds are reported as positive. False positive and false negative results are possible. Confirmatory testing required for definitive results. Current Interpretive Data was last reviewed 2022. Cannabinoids, ur Not Detected CutOff 50 ng/mL [facility] Comment: Interpretive Data - Cannabinoids: Samples containing greater than 50 ng/mL delta-9 THC -COOH or other cross- reacting compounds are reported as positive. False positive and false negative results are possible. Confirmatory testing required for definitive results. Current Interpretive Data was last reviewed 2022. Cocaine, ur Screen Positive, presumptive (A) CutOff 150ng/mL [facility] Comment: Interpretive Data - Cocaine: Samples containing greater than 150 ng/mL benzoylecgonine or other cross- reacting compounds are reported as positive. False positive and false negative results are possible. Confirmatory testing required for definitive results. Current Interpretive Data was last reviewed 2022. Fentanyl, Ur Not Detected CutOff 5 ng/mL [facility] Comment: Interpretive Data - Fentanyl: Samples containing greater than 5 ng/mL norfentanyl, fentanyl, or other cross-reacting fentanyl compounds are reported as positive. False positive and false negative results are possible. Confirmatory testing required for definitive results. Current Interpretive Data was last reviewed 2023. Methadone, ur Not Detected CutOff 300ng/mL [facility] Comment: Interpretive Data - Methadone: Samples containing greater than 300 ng/mL d,l-methadone or other cross-reacting compounds are reported as positive. False positive and false negative results are possible. Confirmatory testing required for definitive results. Current Interpretive Data was last reviewed 2022. Opiates, ur Not Detected CutOff 300ng/mL [facility] Comment: Interpretive Data - Opiates: Samples containing greater than 300 ng/mL morphine or other cross-reacting compounds are reported as positive. False positive and false negative results are possible. Confirmatory testing required for definitive results. Current Interpretive Data was last reviewed 2022. Oxycodone, ur Screen Positive, presumptive (A) CutOff 100ng/mL [facility] Comment: Interpretive Data - Oxycodone: Samples containing greater than 100 ng/mL oxycodone or other cross-reacting compounds are reported as positive. False positive and false negative results are possible. Confirmatory testing required for definitive results. Current Interpretive Data was last reviewed 2022. Phencyclidine, ur Not Detected CutOff 25 ng/mL [facility] Comment: Interpretive Data - Phencyclidine: Samples containing greater than 25 ng/mL phencyclidine or other cross-reacting compounds are reported as positive. False positive and false negative results are possible. Confirmatory testing required for definitive results. Current Interpretive Data was last reviewed 2022. Urine Creatinine 26 mg/dL [facility] Comment: Interpretive Data Urine Creatinine: < 10 mg/dL is extremely dilute = or > 10 but < 20 mg/dL is dilute = or > 20 mg/dL is normal Current Interpretive Data was last revised on 2017. Urine 11/11/2024 11:2 1 AM CDT 11/11/2024 11:28 AM CDT Narrative [facility] - 11/11/2024 12:03 PM CDT Drug of Abuse screening is performed by immunoassay for medical purposes only. This is not to be used for Pain Management purposes. Drug of Abuse screening is performed by immunoassay for medical purposes only. This is not to be used for Pain Management purposes. Maribell Pineda NP LAB URINE ORDERABLES Final R esult Performing Organization Address City/[facility]/ZIP Co de Phone Number [address] [place] [address] * POCT glucose (11/11/2024 8:30 AM CDT) Glucose, POC 145 70 - 199 mg/dL Glucose comment 1 RN/MD Notified [facility] Blood 11/11/2024 8:30 AM CDT 11/11/2024 8:30 AM CDT Hailey Hong MD LAB POCT ORDERABLES - DEVICE Final Result Performing Organization Address [facility] Co de Phone Number [address] [place] [address] * eGFR (11/11/2024 5:38 AM CDT) eGFR >90 >=60 mL/min/1. 73 m2 Comment: Interpretive Data Reference Interval Normal >/= 90 mL/min/1.73m2 Mildly decreased* 60 - 89 mL/min/1.73m2 Mildly to moderately decreased 45 - 59 mL/min/1.73m2 Moderately to severely decreased 30 - 44 mL/min/1.73m2 Severely decreased 15 - 29 mL/min/1.73m2 Kidney Failure < 15 mL/min/1.73m2 *Relative to young adult level Estimated glomerular filtration rate is determined by the 2020 CKD-EPI equation recommended by the National Kidney Foundation (A Unifying Approach to GFR Estimation: Recommendations of the NKF-ASK Task Force on Reassessing the Inclusion of Race in Diagnosing Kidney Disease, JASN 2020). The CKD-EPI equation should not be used for patients with unstable renal function and has not been validated in children and those over 70. Current interpretive data was last reviewed 2021. Blood 11/11/2024 5:38 AM CDT 11/11/2024 6:14 AM CDT us Joaquim Krause MD LAB BLOOD ORDERABLES Final R esult [facility] [id number] [facility] Department [place] [address] * Differential, auto (11/11/2024 5:38 AM CDT) Neutrophil abs 1.79 1.50 - 6.50 K/cumm Imm gran abs 0.03 0.00 - 0.10 K/cumm [facility] Lymphocyte abs 2.38 0.80 - 3.30 K/cumm [facility] Monocyte abs 0.45 0.20 - 0.80 K/cumm [facility] Eosinophil abs 0.42 0.00 - 0.50 K/cumm [facility] Basophil abs 0.03 0.00 - 0.10 K/cumm [facility] Neutrophil pct 35.1 % [facility] Comment: Interpretive Data Percent cell count reference ranges are not reported, since discordance with absolute values may lead to misinterpretation of CBC data. Current Interpretive Data was last revised on 2017. Imm gran pct 0.6 % [facility] Comment: Interpretive Data Percent cell count reference ranges are not reported, since discordance with absolute values may lead to misinterpretation of CBC data. Current Interpretive Data was last revised on 2017. Lymphocyte pct 46.7 % [facility] Comment: Interpretive Data Percent cell count reference ranges are not reported, since discordance with absolute values may lead to misinterpretation of CBC data. Current Interpretive Data was last revised on 2017. Monocyte pct 8.8 % [facility] Comment: Interpretive Data Percent cell count reference ranges are not reported, since discordance with absolute values may lead to misinterpretation of CBC data. Current Interpretive Data was last revised on 2017. Eosinophil pct 8.2 % [facility] Comment: Interpretive Data Percent cell count reference ranges are not reported, since discordance with absolute values may lead to misinterpretation of CBC data. Current Interpretive Data was last revised on 2017. Basophil pct 0.6 % [facility] Comment: Interpretive Data Percent cell count reference ranges are not reported, since discordance with absolute values may lead to misinterpretation of CBC data. Current Interpretive Data was last revised on 2017. Blood 11/11/2024 5:38 AM CDT 11/11/2024 6:14 AM CDT us Joaquim Krause MD LAB BLOOD ORDERABLES Final R esult [place] [id number] [facility] Department [place] [address] * (ABNORMAL) CBC with auto differential (11/11/2024 5:38 AM CDT) WBC 5.10 3.80 - 9.90 K/cumm Hgb 12.1(L) 13.0 - 17.5 g/dL [facility] Hct 35.7(L) 38.9 - 50.3 % [facility] Plt 168 150 - 400 K/cumm [facility] MPV 9.0(L) 9.1 - 12.3 fL [facility] RBC 3.47(L) 4.30 - 5.80 M/cumm [facility] MCV 102.9(H) 81.3 - 96.4 fL [facility] MCH 34.9(H) 27.1 - 33.3 pg [facility] MCHC 33.9 32.3 - 35.7 g/dL [facility] RDW CV 12.1 11.1 - 14.9 % [facility] RDW SD 45.9 35.7 - 48.1 fL [facility] NRBC abs 0.00 0.00 - 0.01 K/cumm [facility] Blood 11/11/2024 5:38 AM CDT 11/11/2024 6:14 AM CDT us Joaquim Krause MD LAB BLOOD ORDERABLES Final R esult [facility] [address] [facility] Department [place] [address] * (ABNORMAL) Comprehensive metabolic panel (11/11/2024 5:38 AM CDT) Sodium 137 135 - 145 mmol/L Potassium, pl 4.1 3.3 - 4.9 mmol/L [facility] Chloride 103 97 - 110 mmol/L [facility] CO2 27 22 - 32 mmol/L [facility] Anion gap 7 2 - 15 mmol/L [facility] BUN 12 6 - 25 mg/dL [facility] Creatinine 0.65(L) 0.80 - 1.30 mg/dL [facility] Glucose 123 70 - 199 mg/dL [facility] Comment: Interpretive Data Fasting glucose >/= 126 mg/dl is diagnostic for diabetes. Fasting is defined as no caloric intake for at least 8 hours. Fasting glucose between 100 mg/dl to 125 mg/dl is diagnostic of prediabetes. In a patient with classic symptoms of hyperglycemia or hyperglycemic crisis, a random glucose >/= 200 mg/dl is diagnostic for diabetes. In the absence of unequivocal hyperglycemia, results should be confirmed by repeat testing. The classification and Diagnosis of Diabetes Diabetes Care 2021; 46: S19-S40. Current interpretive data was last revised 2022. Calcium 9.0 8.5 - 10.3 mg/dL [facility] Bilirubin, total 0.3 0.1 - 1.2 mg/dL [facility] Protein, pl 6.6 6.5 - 8.5 g/dL [facility] Albumin 3.2(L) 3.5 - 5.0 g/dL [facility] Alk phos 89 40 - 130 Units/L [facility] ALT 10 7 - 55 Units/L [facility] AST 23 10 - 50 Units/L [facility] Blood 11/11/2024 5:38 AM CDT 11/11/2024 6:14 AM CDT us Joaquim Krause MD LAB BLOOD ORDERABLES Final R esult Performing Organization Address City/[facility] Co de Phone Number [address] [place] [address] * POCT glucose (11/10/2024 8:22 PM CDT) Glucose, POC 106 70 - 199 mg/dL Blood 11/10/2024 8:22 PM CDT 11/10/2024 8:22 PM CDT us Hailey Hong MD LAB POCT ORDERABLES - DEVICE Final Result Performing Organization Address [facility] de Phone Number [address] [place] [address] * (ABNORMAL) POCT glucose (11/10/2024 5:19 PM CDT) Glucose, POC 213(H) 70 - 199 mg/dL Glucose comment 1 RN/MD Notified [facility] Blood 11/10/2024 5:19 PM CDT 11/10/2024 5:19 PM CDT us Hailey Hong MD LAB POCT ORDERABLES - DEVICE Final Result Performing Organization Address [facility] de Phone Number [address] [place] [address] * POCT glucose (11/10/2024 1:06 PM CDT) Glucose, POC 176 70 - 199 mg/dL Glucose comment 1 RN/MD Notified [facility] Blood 11/10/2024 1:06 PM CDT 11/10/2024 1:06 PM CDT Hailey Hong MD LAB POCT ORDERABLES - DEVICE Final Result [id number] [place] [address] * POCT glucose (11/10/2024 8:18 AM CDT) Glucose, POC 149 70 - 199 mg/dL Glucose comment 1 RN/MD Notified [facility] Blood 11/10/2024 8:18 AM CDT 11/10/2024 8:18 AM CDT us Hailey Hong MD LAB POCT ORDERABLES - DEVICE Final Result Performing Organization Address City/[facility] Co de Phone Number [address] [address] * eGFR (11/10/2024 5:32 AM CDT) [facility] eGFR >90 >=60 mL/min/1. 73 m2 Comment: Interpretive Data Reference Interval Normal >/= 90 mL/min/1.73m2 Mildly decreased* 60 - 89 mL/min/1.73m2 Mildly to moderately decreased 45 - 59 mL/min/1.73m2 Moderately to severely decreased 30 - 44 mL/min/1.73m2 Severely decreased 15 - 29 mL/min/1.73m2 Kidney Failure < 15 mL/min/1.73m2 *Relative to young adult level Estimated glomerular filtration rate is determined by the 2020 CKD-EPI equation recommended by the National Kidney Foundation (A Unifying Approach to GFR Estimation: Recommendations of the NKF-ASK Task Force on Reassessing the Inclusion of Race in Diagnosing Kidney Disease, JASN 2020). The CKD-EPI equation should not be used for patients with unstable renal function and has not been validated in children and those over 70. Current interpretive data was last reviewed 2021. Blood 11/10/2024 5:32 AM CDT 11/10/2024 5:48 AM CDT us Maribell Neenah COMMUNITY DIETITIAN LAB BLOOD ORDERABLES Final R esult [facility]U [address] [facility] Department [place] [address] * Differential, auto (11/10/2024 5:32 AM CDT) Neutrophil abs 1.79 1.50 - 6.50 K/cumm Imm gran abs 0.02 0.00 - 0.10 K/cumm [facility] Lymphocyte abs 2.94 0.80 - 3.30 K/cumm [facility] Monocyte abs 0.68 0.20 - 0.80 K/cumm [facility] Eosinophil abs 0.46 0.00 - 0.50 K/cumm [facility] Basophil abs 0.04 0.00 - 0.10 K/cumm [facility] Neutrophil pct 30.1 % [facility] Comment: Interpretive Data Percent cell count reference ranges are not reported, since discordance with absolute values may lead to misinterpretation of CBC data. Current Interpretive Data was last revised on 2017. Imm gran pct 0.3 % [facility] Comment: Interpretive Data Percent cell count reference ranges are not reported, since discordance with absolute values may lead to misinterpretation of CBC data. Current Interpretive Data was last revised on 2017. Lymphocyte pct 49.6 % [facility] Comment: Interpretive Data Percent cell count reference ranges are not reported, since discordance with absolute values may lead to misinterpretation of CBC data. Current Interpretive Data was last revised on 2017. Monocyte pct 11.5 % [facility] Comment: Interpretive Data Percent cell count reference ranges are not reported, since discordance with absolute values may lead to misinterpretation of CBC data. Current Interpretive Data was last revised on 2017. Eosinophil pct 7.8 % [facility] Comment: Interpretive Data Percent cell count reference ranges are not reported, since discordance with absolute values may lead to misinterpretation of CBC data. Current Interpretive Data was last revised on 2017. Basophil pct 0.7 % [facility] Comment: Interpretive Data Percent cell count reference ranges are not reported, since discordance with absolute values may lead to misinterpretation of CBC data. Current Interpretive Data was last revised on 2017. Blood 11/10/2024 5:32 AM CDT 11/10/2024 5:[address] [facility] COMMUNITY DIETITIAN LAB BLOOD ORDERABLES Final R esult Performing Organization Address City/[facility]/ZIP Co de Phone Number JU [address] [place] [address] * Thyroid Function [place] (11/10/2024 5:32 AM CDT) Pathologist [facility] TSH 0.78 0.30 - 4.20 mcIUnit/mL Blood 11/10/2024 5:32 AM CDT 11/10/2024 5:48 AM CDT [facility] Miriam COMMUNITY DIETITIAN LAB BLOOD ORDERABLES Final R esult Performing Organization Address City/[facility] Co de Phone Number [address] [place] [address] * (ABNORMAL) CBC with auto differential (11/10/2024 5:32 AM CDT) [facility] WBC 5.93 3.80 - 9.90 K/cumm Hgb 11.9(L) 13.0 - 17.5 g/dL [facility] Hct 35.4(L) 38.9 - 50.3 % [facility] Plt 158 150 - 400 K/cumm [facility] MPV 8.7(L) 9.1 - 12.3 fL [facility] RBC 3.44(L) 4.30 - 5.80 M/cumm [facility] MCV 102.9(H) 81.3 - 96.4 fL [facility] MCH 34.6(H) 27.1 - 33.3 pg [facility] MCHC 33.6 32.3 - 35.7 g/dL [facility] RDW CV 12.2 11.1 - 14.9 % [facility] RDW SD 45.9 35.7 - 48.1 fL [facility] NRBC abs 0.00 0.00 - 0.01 K/cumm [facility] Blood 11/10/2024 5:32 AM CDT 11/10/2024 5:46 AM CDT Maribell Pineda COMMUNITY DIETITIAN LAB BLOOD ORDERABLES Final R esult Performing Organization Address [facility] Co de Phone Number JU [address] [place] [address] * (ABNORMAL) Vitamin D 25 hydroxy (11/10/2024 5:32 AM CDT) Vitamin D 25-OH 13.0(L) 30.0 - 80.0 ng/mL Blood 11/10/2024 5:32 AM CDT 11/10/2024 5:48 AM CDT Maribell Pineda COMMUNITY DIETITIAN LAB BLOOD ORDERABLES Final R esult Performing Organization Address [facility] Co de Phone Number [address] [place] [address] * Magnesium (11/10/2024 5:32 AM CDT) Magnesium 1.7 1.4 - 2.5 mg/dL Blood 11/10/2024 5:32 AM CDT 11/10/2024 5:48 AM CDT Maribell Pineda COMMUNITY DIETITIAN LAB BLOOD ORDERABLES Final R esult Performing Organization Address [facility] Co de Phone Number [address] [place] [address] * Vitamin B12 (11/10/2024 5:32 AM CDT) Vitamin B12 369 230 - 1,250 pg/mL Blood 11/10/2024 5:32 AM CDT 11/10/2024 5:48 AM CDT Maribell Pineda COMMUNITY DIETITIAN LAB BLOOD ORDERABLES Final R esult Performing Organization Address [facility] Co de Phone Number JU [facility] [place] [address] * (ABNORMAL) Basic metabolic panel (11/10/2024 5:32 AM CDT) Pathologist [facility] Sodium 139 135 - 145 mmol/L Potassium, pl 4.0 3.3 - 4.9 mmol/L [facility] Chloride 104 97 - 110 mmol/L [facility] CO2 25 22 - 32 mmol/L [facility] Anion gap 10 2 - 15 mmol/L [facility] BUN 16 6 - 25 mg/dL [facility] Creatinine 0.75(L) 0.80 - 1.30 mg/dL [facility] Glucose 118 70 - 199 mg/dL [facility] Comment: Interpretive Data Fasting glucose >/= 126 mg/dl is diagnostic for diabetes. Fasting is defined as no caloric intake for at least 8 hours. Fasting glucose between 100 mg/dl to 125 mg/dl is diagnostic of prediabetes. In a patient with classic symptoms of hyperglycemia or hyperglycemic crisis, a random glucose >/= 200 mg/dl is diagnostic for diabetes. In the absence of unequivocal hyperglycemia, results should be confirmed by repeat testing. The classification and Diagnosis of Diabetes Diabetes Care 2021; 46: S19-S40. Current interpretive data was last revised 2022. Calcium 8.7 8.5 - 10.3 mg/dL [facility] Blood 11/10/2024 5:32 AM CDT 11/10/2024 5:48 AM CDT Maribell Pineda [facility] LAB BLOOD ORDERABLES Final R esult Performing Organization Address [facility] Co de Phone Number JU [address] [facility] [place] [address] * POCT glucose (11/09/2024 8:55 PM CDT) Glucose, POC 188 70 - 199 mg/dL Blood 11/09/2024 8:55 PM CDT 11/09/2024 8:55 PM CDT Ezio Houston MD LAB POCT ORDERABLES - GISELA CE Final Result JU [facility] Department [place] [address] * Infection Prevention Daja auris PCR, surveillance Axilla/Groin (11/09/2024 9:09 AM CDT) Pathologist [facility] Daja auris DNA Not Detected Not Detected [facility] Comment: Interpretive Data Testing performed by [facility] using the Js eloina 6800 Daja auris assay. This assay detects DNA from Daja auris using Real-Time PCR. This assay is laboratory developed and is not cleared by the [facility] Food and Drug Administration. The performance characteristics have been verified by the [facility]. Axilla/Groin 11/09/2024 9:09 AM CDT 11/09/2024 9:25 AM CDT Yonathan Chakraborty MD LAB MICROBIOLOGY - GENERAL ORDER AUDI Final Result Performing Organization Address City/[facility]/ZIP Co de Phone Number JU [facility] Department [place] [address] [facility] * POCT glucose (11/09/2024 9:08 AM CDT) Pathologist [facility] Glucose, POC 137 70 - 199 mg/dL Blood 11/09/2024 9:08 AM CDT 11/09/2024 9:08 AM CDT Keith Ortega MD LAB POCT ORDERABLES - DEVICE Final Result Performing Organization Address City/[facility]/ZIP Co de Phone Number JU [facility] [place] [address] * eGFR (11/09/2024 5:09 AM CDT) Pathologist [facility] eGFR >90 >=60 mL/min/1. 73 m2 Comment: Interpretive Data Reference Interval Normal >/= 90 mL/min/1.73m2 Mildly decreased* 60 - 89 mL/min/1.73m2 Mildly to moderately decreased 45 - 59 mL/min/1.73m2 Moderately to severely decreased 30 - 44 mL/min/1.73m2 Severely decreased 15 - 29 mL/min/1.73m2 Kidney Failure < 15 mL/min/1.73m2 *Relative to young adult level Estimated glomerular filtration rate is determined by the 2020 CKD-EPI equation recommended by the National Kidney Foundation (A Unifying Approach to GFR Estimation: Recommendations of the NKF-ASK Task Force on Reassessing the Inclusion of Race in Diagnosing Kidney Disease, JASN 2020). The CKD-EPI equation should not be used for patients with unstable renal function and has not been validated in children and those over 70. Current interpretive data was last reviewed 2021. Blood 11/09/2024 5:09 AM CDT 11/09/2024 5:25 AM CDT Ching Rodriugez MD LAB BLOOD ORDERABLES Final Result [facility] [place] [address] * Differential, auto (11/09/2024 5:09 AM CDT) Pathologist [facility] Neutrophil abs 2.21 1.50 - 6.50 K/cumm Imm gran abs 0.02 0.00 - 0.10 K/cumm [facility] Lymphocyte abs 2.79 0.80 - 3.30 K/cumm [facility] Monocyte abs 0.67 0.20 - 0.80 K/cumm [facility] Eosinophil abs 0.49 0.00 - 0.50 K/cumm [facility] Basophil abs 0.04 0.00 - 0.10 K/cumm [facility] Neutrophil pct 35.5 % [facility] Comment: Interpretive Data Percent cell count reference ranges are not reported, since discordance with absolute values may lead to misinterpretation of CBC data. Current Interpretive Data was last revised on 2017. Imm gran pct 0.3 % [facility] Comment: Interpretive Data Percent cell count reference ranges are not reported, since discordance with absolute values may lead to misinterpretation of CBC data. Current Interpretive Data was last revised on 2017. Lymphocyte pct 44.9 % [facility] Comment: Interpretive Data Percent cell count reference ranges are not reported, since discordance with absolute values may lead to misinterpretation of CBC data. Current Interpretive Data was last revised on 2017. Monocyte pct 10.8 % [facility] Comment: Interpretive Data Percent cell count reference ranges are not reported, since discordance with absolute values may lead to misinterpretation of CBC data. Current Interpretive Data was last revised on 2017. Eosinophil pct 7.9 % [facility] Comment: Interpretive Data Percent cell count reference ranges are not reported, since discordance with absolute values may lead to misinterpretation of CBC data. Current Interpretive Data was last revised on 2017. Basophil pct 0.6 % [facility] Comment: Interpretive Data Percent cell count reference ranges are not reported, since discordance with absolute values may lead to misinterpretation of CBC data. Current Interpretive Data was last revised on 2017. Blood 11/09/2024 5:09 AM CDT 11/09/2024 5:30 AM CDT us Ching Rodriguez MD LAB BLOOD ORDERABLES Final Result [facility] Department [place] [address] * (ABNORMAL) CBC with auto differential (11/09/2024 5:09 AM CDT) WBC 6.22 3.80 - 9.90 K/cumm Hgb 13.8 13.0 - 17.5 g/dL [facility] Hct 39.1 38.9 - 50.3 % [facility] Plt 188 150 - 400 K/cumm [facility] MPV 8.7(L) 9.1 - 12.3 fL [facility] RBC 3.84(L) 4.30 - 5.80 M/cumm [facility] MCV 101.8(H) 81.3 - 96.4 fL [facility] MCH 35.9(H) 27.1 - 33.3 pg [facility] MCHC 35.3 32.3 - 35.7 g/dL [facility] RDW CV 12.5 11.1 - 14.9 % [facility] RDW SD 46.6 35.7 - 48.1 fL [facility] NRBC abs 0.00 0.00 - 0.01 K/cumm [facility] Blood 11/09/2024 5:09 AM CDT 11/09/2024 5:30 AM CDT Ching Rodriguez MD LAB BLOOD ORDERABLES Final Result [facility] Department [place] [address] * (ABNORMAL) Basic metabolic panel (11/09/2024 5:09 AM CDT) Pathologist [facility] Sodium 142 135 - 145 mmol/L Potassium, pl 3.7 3.3 - 4.9 mmol/L [facility] Chloride 104 97 - 110 mmol/L [facility] CO2 30 22 - 32 mmol/L [facility] Anion gap 8 2 - 15 mmol/L [facility] BUN 18 6 - 25 mg/dL [facility] Creatinine 0.66(L) 0.80 - 1.30 mg/dL [facility] Glucose 161 70 - 199 mg/dL [facility] Comment: Interpretive Data Fasting glucose >/= 126 mg/dl is diagnostic for diabetes. Fasting is defined as no caloric intake for at least 8 hours. Fasting glucose between 100 mg/dl to 125 mg/dl is diagnostic of prediabetes. In a patient with classic symptoms of hyperglycemia or hyperglycemic crisis, a random glucose >/= 200 mg/dl is diagnostic for diabetes. In the absence of unequivocal hyperglycemia, results should be confirmed by repeat testing. The classification and Diagnosis of Diabetes Diabetes Care 2021; 46: S19-S40. Current interpretive data was last revised 2022. Calcium 9.7 8.5 - 10.3 mg/dL [facility] Blood 11/09/2024 5:09 AM CDT 11/09/2024 5:25 AM CDT us Ching Rodriguez MD LAB BLOOD ORDERABLES Final Result Performing Organization Address [facility] Co de Phone Number [facility] [place] [address] * eGFR (10/24/2024 1:42 AM CDT) eGFR >90 >=60 mL/min/1. 73 m2 Comment: Interpretive Data Reference Interval Normal >/= 90 mL/min/1.73m2 Mildly decreased* 60 - 89 mL/min/1.73m2 Mildly to moderately decreased 45 - 59 mL/min/1.73m2 Moderately to severely decreased 30 - 44 mL/min/1.73m2 Severely decreased 15 - 29 mL/min/1.73m2 Kidney Failure < 15 mL/min/1.73m2 *Relative to young adult level Estimated glomerular filtration rate is determined by the 2020 CKD-EPI equation recommended by the National Kidney Foundation (A Unifying Approach to GFR Estimation: Recommendations of the NKF-ASK Task Force on Reassessing the Inclusion of Race in Diagnosing Kidney Disease, JASN 2020). The CKD-EPI equation should not be used for patients with unstable renal function and has not been validated in children and those over 70. Current interpretive data was last reviewed 2021. Blood 10/24/2024 1:42 AM CDT 10/24/2024 2:18 AM CDT us Dorian Taylor MD LAB BLOOD ORDERABLES Final Result Performing Organization Address City/[facility]/ZIP Co de Phone Number [facility] Department [place] [address] * (ABNORMAL) Differential, auto (10/24/2024 1:42 AM CDT) Neutrophil abs 1.98 1.50 - 6.50 K/cumm Imm gran abs 0.04 0.00 - 0.10 K/cumm [facility] Lymphocyte abs 3.08 0.80 - 3.30 K/cumm [facility] Monocyte abs 0.78 0.20 - 0.80 K/cumm [facility] Eosinophil abs 0.58(H) 0.00 - 0.50 K/cumm [facility] Basophil abs 0.04 0.00 - 0.10 K/cumm [facility] Neutrophil pct 30.5 % [facility] Comment: Interpretive Data Percent cell count reference ranges are not reported, since discordance with absolute values may lead to misinterpretation of CBC data. Current Interpretive Data was last revised on 2017. Imm gran pct 0.6 % [facility] Comment: Interpretive Data Percent cell count reference ranges are not reported, since discordance with absolute values may lead to misinterpretation of CBC data. Current Interpretive Data was last revised on 2017. Lymphocyte pct 47.4 % [facility] Comment: Interpretive Data Percent cell count reference ranges are not reported, since discordance with absolute values may lead to misinterpretation of CBC data. Current Interpretive Data was last revised on 2017. Monocyte pct 12.0 % [facility] Comment: Interpretive Data Percent cell count reference ranges are not reported, since discordance with absolute values may lead to misinterpretation of CBC data. Current Interpretive Data was last revised on 2017. Eosinophil pct 8.9 % [facility] Comment: Interpretive Data Percent cell count reference ranges are not reported, since discordance with absolute values may lead to misinterpretation of CBC data. Current Interpretive Data was last revised on 2017. Basophil pct 0.6 % [facility] Comment: Interpretive Data Percent cell count reference ranges are not reported, since discordance with absolute values may lead to misinterpretation of CBC data. Current Interpretive Data was last revised on 2017. Blood 10/24/2024 1:42 AM CDT 10/24/2024 2:20 AM CDT Dorian Taylor MD LAB BLOOD ORDERABLES Final Result [facility] Department [place] [address] * (ABNORMAL) CBC with auto differential (10/24/2024 1:42 AM CDT) [facility] WBC 6.50 3.80 - 9.90 K/cumm Hgb 13.1 13.0 - 17.5 g/dL [facility] Hct 39.0 38.9 - 50.3 % [facility] Plt 213 150 - 400 K/cumm [facility] MPV 10.4 9.1 - 12.3 fL [facility] RBC 3.77(L) 4.30 - 5.80 M/cumm [facility] MCV 103.4(H) 81.3 - 96.4 fL [facility] MCH 34.7(H) 27.1 - 33.3 pg [facility] MCHC 33.6 32.3 - 35.7 g/dL [facility] RDW CV 12.2 11.1 - 14.9 % [facility] RDW SD 46.3 35.7 - 48.1 fL [facility] NRBC abs 0.00 0.00 - 0.01 K/cumm [facility] Blood 10/24/2024 1:42 AM CDT 10/24/2024 2:20 AM CDT Dorian Taylor MD LAB BLOOD ORDERABLES Final Result Performing Organization Address [facility] de Phone Number [facility] Department [place] [address] * (ABNORMAL) Comprehensive metabolic panel (10/24/2024 1:42 AM CDT) [facility] Sodium 140 135 - 145 mmol/L Potassium, pl 4.9 3.3 - 4.9 mmol/L [facility] Comment:Hemolyzed; Potassium value may be falsely elevated by as much as 1.1-1.6 mmol/L. Suggest redraw and reanalysis. Chloride 101 97 - 110 mmol/L [facility] CO2 28 22 - 32 mmol/L [facility] Anion gap 11 2 - 15 mmol/L [facility] BUN 13 6 - 25 mg/dL [facility] Creatinine 0.67(L) 0.80 - 1.30 mg/dL [facility] Glucose 223(H) 70 - 199 mg/dL [facility] Comment: Interpretive Data Fasting glucose >/= 126 mg/dl is diagnostic for diabetes. Fasting is defined as no caloric intake for at least 8 hours. Fasting glucose between 100 mg/dl to 125 mg/dl is diagnostic of prediabetes. In a patient with classic symptoms of hyperglycemia or hyperglycemic crisis, a random glucose >/= 200 mg/dl is diagnostic for diabetes. In the absence of unequivocal hyperglycemia, results should be confirmed by repeat testing. The classification and Diagnosis of Diabetes Diabetes Care 2021; 46: S19-S40. Current interpretive data was last revised 2022. Calcium 9.3 8.5 - 10.3 mg/dL [facility] Bilirubin, total 0.5 0.1 - 1.2 mg/dL [facility] Protein, pl 8.2 6.5 - 8.5 g/dL [facility] Albumin 3.6 3.5 - 5.0 g/dL [facility] Alk phos 111 40 - 130 Units/L [facility] Comment:Hemolyzed; result ma y be falsely decreased ALT 46 7 - 55 Units/L [facility] AST 39 10 - 50 Units/L [facility] Comment:Hemolyzed; result ma y be falsely elevated Blood 10/24/2024 1:42 AM CDT 10/24/2024 2:18 AM CDT us Dorian Taylor MD LAB BLOOD ORDERABLES Final Result [facility] Department [place] [address] * (ABNORMAL) POCT glucose (10/24/2024 12:42 AM CDT) [facility] Glucose, POC 279(H) 70 - 199 mg/dL Blood 10/24/2024 12:4 2 AM CDT 10/24/2024 12:42 AM CDT Brien Vital MD LAB POCT ORDERABLES - DEV ICE Final Result Performing Organization Address [facility] Co de Phone Number JU [facility] [place] [address] * POCT ketone, blood (10/23/2024 10:38 PM CDT) Beta-Hydroxybut yrate, POC 0.1 0.0 - 0.5 mmol/L Blood 10/23/2024 10:3 8 PM CDT 10/23/2024 10:38 PM CDT Notinfile Unknown LAB POCT ORDERABLES - DEVICE F inal Result Performing Organization Address [facility] de Phone Number JU [facility] Department [place] [address] * (ABNORMAL) POCT glucose (10/23/2024 8:57 PM CDT) Pathologist [facility] Glucose, POC 339(H) 70 - 199 mg/dL Blood 10/23/2024 8:57 PM CDT 10/23/2024 8:57 PM CDT Notinfile Unknown LAB POCT ORDERABLES - DEVICE F inal Result Performing Organization Address [facility] Co de Phone Number JU [facility] [place] [address] * Infection Prevention Daja auris PCR, surveillance Axilla/Groin (10/18/2024 11:02 AM CDT) Pathologist [facility] Daja auris DNA Not Detected Not Detected [facility] Comment: Interpretive Data Testing performed by [facility] using the Js eloina 6800 Daja auris assay. This assay detects DNA from Daja auris using Real-Time PCR. This assay is laboratory developed and is not cleared by the [place] Food and Drug Administration. The performance characteristics have been verified by the [facility]. Axilla/Groin 10/18/2024 11:0 2 AM CDT 10/18/2024 11:41 AM CDT Narrative [facility] - 10/18/2024 9:52 PM CDT Order placed by [facility] due to ring surveillance. Instant Order Generic Provider LAB MICROBIOLOGY - GENERAL ORDERABLES Final Result Performing Organization Address [facility] Co de Phone Number [facility] [place] [address] [facility] * POCT glucose (10/18/2024 11:01 AM CDT) Glucose, POC 173 70 - 199 mg/dL Blood 10/18/2024 11:0 1 AM CDT 10/18/2024 11:01 AM CDT Shannon Mena MD LAB POCT ORDERABLES - DE VICE Final Result Performing Organization Address [facility] Co de Phone Number [facility] [place] [address] * POCT glucose (10/18/2024 8:41 AM CDT) Glucose, POC 166 70 - 199 mg/dL Blood 10/18/2024 8:41 AM CDT 10/18/2024 8:41 AM CDT Shannon Mena MD LAB POCT ORDERABLES - DE VICE Final Result Performing Organization Address [facility] Co de Phone Number [facility] [place] [address] * TRANSTHORACIC ECHO (TTE) COMPLETE W DOPPLER/CF W CONTRAST W BUBBLE (10/18/2024 8:25 AM CDT) EF Mod BP 54 % CONS SCIMAGE Anatomical Region Laterality Modality Ultrasound 10/18/2024 7:11 AM CDT Narrative 10/18/2024 9:35 AM CDT [facility] [place] [address] Transthoracic Echocardiographic Report Patient Name: LUIS WALSH M : 1955 (69y 1m) Gender: M Study Date: 10/18/2024 07:11:42 AM Ht(Inch): 70 Wt(Lb): 169.97 BSA: 1.95 Census Enumerator: Zenobia Smalls RDCS Location: [id number] Order Provider: SHANNON MENA BMI: 24.39 BP: 137/75 Ref Provider: SHANNON MENA - PROCEDURES: Echocardiographic Report: Transthoracic complete echo with strain imaging and contrast, 2D, spectral and tissue Doppler, color flow Doppler, M-mode. Contrast: Contrast Enhancement was Employed: Due to suboptimal image quality with inadequate visualization of at least 2 of 16 LV wall segments in any view after initial imaging. Perflutren contrast was administered using the volume necessary to obtain adequate images. 0.4 ml Optison Administered, (2.6 ml wasted) & NS Bubble Study. INDICATIONS: Left ventricular hypertrophy, Near Syncope, and Palpitations. CONCLUSIONS: 1. Normal left ventricular size based on volume index. Concentric LV remodeling. Normal left ventricular systolic function. The Ejection Fraction (Thompson's) is measured at 54 %. Grade I diastolic dysfunction (normal LA pressure). The average global longitudinal strain is borderline. 2. Normal right ventricular size. Normal right ventricular systolic function. 3. Agitated saline bubble study is negative for intracardiac shunt at rest and post-Valsalva. 4. There is no significant valvular heart disease. 5. Normal pericardium without pericardial effusion. 6. Normal aortic root size when indexed. 7. IVC is normal in size. 8. Unable to determine PASP due to inadequate TR jet. ATTESTATION: I have personally reviewed and interpreted this study without fellow or resident. - DISCLAIMER: The study images and the final report will be retained in the patient chart by the Echo Laboratory for the legally required time period. This chart constitutes the legal record of any testing performed. FINDINGS: Left Ventricle: Normal left ventricular size based on volume index. Concentric LV remodeling. Normal left ventricular systolic function. The Ejection Fraction (Thompson's) is measured at 54 %. Grade I diastolic dysfunction (normal LA pressure). The average global longitudinal strain is borderline. The LV global strain is: -17.4 %. Right Ventricle: Normal right ventricular size. Normal right ventricular systolic function. Left Atrium: The left atrium is normal in size. Right Atrium: The right atrium is normal in size. Atrial Septum: Agitated saline bubble study is negative for intracardiac shunt at rest and post-Valsalva. Mitral Valve: Normal mitral valve structure. No mitral regurgitation. No stenosis present. Aortic Valve: Normal trileaflet aortic valve. No aortic regurgitation. No aortic valve stenosis. Tricuspid Valve: Normal tricuspid valve structure. No tricuspid regurgitation. No tricuspid valve stenosis. Pulmonic Valve: Normal pulmonic valve structure. No pulmonic regurgitation. No pulmonic valve stenosis present. Pericardium: Normal pericardium without pericardial effusion. Aorta: Normal aortic root size when indexed. IVC: IVC is normal in size. PASP: Unable to determine PASP due to inadequate TR jet. MEASUREMENTS: 2D/MM Value Range Doppler Value Range LVIDd 2D 3.18 cm [ 4.20 - 5.80 ] AV Peak Tyrel 1.6 m/s [ 1.0 - 1.7 ] LVIDs 2D 2.08 cm [ 2.50 - 4.00 ] AV Peak PG 10.24 mmHg IVSd 2D 1.38 cm [ 0.60 - 1.00 ] AV Mean PG 5 mmHg LVPWd 2D 1.28 cm [ 0.60 - 1.00 ] AV VTI 22.7 cm LV Thickness Ratio 1.1 LVOT Peak Tyrel 1.1 m/s [ 0.7 - 1.1 ] LV FS 2D 34.66 % [ 25.00 - 43.00 ] LVOT Peak PG 4.84 mmHg LV Mass 2D 140.59 g LVOT Mean PG 3 mmHg LV Mass Index 2D 72.10 g/m2 LVOT VTI 17.6 cm RWT 0.81 LVOT Diam 1.94 cm EDV Mod BP 81.67 ml [ 62.00 - 150.00 ] RUBEN VTI 2.29 cm2 LV EDV Index 41.88 ml/m2 LVOT/AV VTI 0.78 - Dimensionless index (DVI) ESV Mod BP 37.21 ml [ 21.00 - 61.00 ] MV E Peak Tyrel 0.5 m/s [ 0.6 - 1.3 ] EF Mod BP 54 % [ 52 - 72 ] MV A Peak Tyrel 0.9 m/s [ 1.0 - 1.2 ] LV GLS -17.4 % [ -25.0 - -18.0 ] MV E/A 0.5 ratio [ 0.8 - 1.5 ] LA Length 4C 4.00 cm MV Decel Time 232.74 msec [ 104.00 - 258.00 ] LA Length 2C 4.30 cm Med E` Tyrel 5.1 cm/sec [ 8.0 - 25.0 ] LA Volume BP 26.79 ml Lat E` Tyrel 7.1 cm/sec [ 10.0 - 25.0 ] LA Volume Index 13.74 ml/m2 [ 16.00 - 34.00 ] Average E/E` 8.20 RV Base Dimen 2D 3.9 cm [ 2.5 - 4.2 ] RV S` 15.10 cm/sec TAPSE 2.19 cm [ 1.71 - 5.00 ] TR Peak Tyrel 2.2 m/s [ 1.0 - 2.8 ] RA Volume 34.07 ml TR Peak PG 19.4 mmHg RA Volume Index 17.47 ml/m2 PV Peak Tyrel 1.0 m/s [ 0.4 - 0.8 ] AoR Diam 2D 3.12 cm [ 3.10 - 3.70 ] PV Peak PG 4.00 mmHg Ao Root Index 1.60 cm/m2 [ 1.00 - 2.00 ] PI ED Tyrel 106.97 m/sec Asc Ao Diam 2D 3.97 cm Asc Ao Index 2.04 cm/m2 Electronically Signed By: Zarina Iniguez MD 10/18/2024 9:33:58 AM CDT Procedure Note Zarina Iniguez MD - 10/18/2024 [facility] [place] [address] Transthoracic Echocardiographic Report Patient Name: LUIS WALSH M : 1955 (69y 1m) Gender: M Study Date: 10/18/2024 07:11:42 AM Ht(Inch): 70 Wt(Lb): 169.97 BSA: 1.95 Census Enumerator: Zenobia Smalls RDCS Location: [id number] Order Provider:SHANNON MENA BMI: 24.39 BP: 137/75 Ref Provider: SHANNON MENA - PROCEDURES: Echocardiographic Report: Transthoracic complete echo with strain imagingand contrast, 2D, spectral and tissue Doppler, color flow Doppler, M-mode. Contrast: Contrast Enhancement was Employed: Due to suboptimal imagequality with inadequate visualization of at least 2 of 16 LV wall segments in any viewafter initial imaging. Perflutren contrast was administered using the volume necessaryto obtain adequate images. 0.4 ml Optison Administered, (2.6 ml wasted) & NS BubbleStudy. INDICATIONS: Left ventricular hypertrophy, Near Syncope, and Palpitations. CONCLUSIONS: 1. Normal left ventricular size based on volume index. Concentric LVremodeling. Normal left ventricular systolic function. The Ejection Fraction (Thompson's) ismeasured at 54 %. Grade I diastolic dysfunction (normal LA pressure). The average globallongitudinal strain is borderline. 2. Normal right ventricular size. Normal right ventricular systolicfunction. 3. Agitated saline bubble study is negative for intracardiac shunt at restand post-Valsalva. 4. There is no significant valvular heart disease. 5. Normal pericardium without pericardial effusion. 6. Normal aortic root size when indexed. 7. IVC is normal in size. 8. Unable to determine PASP due to inadequate TR jet. ATTESTATION: I have personally reviewed and interpreted this study without fellow orresident. - DISCLAIMER: The study images and the final report will be retained in the patientchart by the [facility] for the legally required time period. This chart constitutesthe legal record of any testing performed. FINDINGS: Left Ventricle: Normal left ventricular size based on volume index.Concentric LV remodeling. Normal left ventricular systolic function. The EjectionFraction (Thompson's) is measured at 54 %. Grade I diastolic dysfunction (normal LA pressure).The average global longitudinal strain is borderline. The LV global strain is: -17.4%. Right Ventricle: Normal right ventricular size. Normal right ventricularsystolic function. Left Atrium: The left atrium is normal in size. Right Atrium: The right atrium is normal in size. Atrial Septum: Agitated saline bubble study is negative for intracardiacshunt at rest and post-Valsalva. Mitral Valve: Normal mitral valve structure. No mitral regurgitation. Nostenosis present. Aortic Valve: Normal trileaflet aortic valve. No aortic regurgitation. Noaortic valve stenosis. Tricuspid Valve: Normal tricuspid valve structure. No tricuspidregurgitation. No tricuspid valve stenosis. Pulmonic Valve: Normal pulmonic valve structure. No pulmonicregurgitation. No pulmonic valve stenosis present. Pericardium: Normal pericardium without pericardial effusion. Aorta: Normal aortic root size when indexed. IVC: IVC is normal in size. PASP: Unable to determine PASP due to inadequate TR jet. MEASUREMENTS: 2D/MM Value Range DopplerValue Range LVIDd 2D 3.18 cm [ 4.20 - 5.80 ] AV Peak Vel1.6 m/s [ 1.0 - 1.7 ] LVIDs 2D 2.08 cm [ 2.50 - 4.00 ] AV Peak PG10.24 mmHg IVSd 2D 1.38 cm [ 0.60 - 1.00 ] AV Mean PG5 mmHg LVPWd 2D 1.28 cm [ 0.60 - 1.00 ] AV VTI22.7 cm LV Thickness Ratio 1.1 LVOT Peak Vel1.1 m/s [ 0.7 - 1.1 ] LV FS 2D 34.66 % [ 25.00 - 43.00 ] LVOT Peak PG4.84 mmHg LV Mass 2D 140.59 g LVOT Mean PG3 mmHg LV Mass Index 2D 72.10 g/m2 LVOT VTI17.6 cm RWT 0.81 LVOT Diam1.94 cm EDV Mod BP 81.67 ml [ 62.00 - 150.00 ] RUBEN VTI2.29 cm2 LV EDV Index 41.88 ml/m2 LVOT/AV VTI0.78 - Dimensionless index (DVI) ESV Mod BP 37.21 ml [ 21.00 - 61.00 ] MV E Peak Vel0.5 m/s [ 0.6 - 1.3 ] EF Mod BP 54 % [ 52 - 72 ] MV A Peak Vel0.9 m/s [ 1.0 - 1.2 ] LV GLS -17.4 % [ -25.0 - -18.0 ] MV E/A0.5 ratio [ 0.8 - 1.5 ] LA Length 4C 4.00 cm MV Decel Ahdi745.74 msec [ 104.00 - 258.00 ] LA Length 2C 4.30 cm Med E` Vel5.1 cm/sec [ 8.0 - 25.0 ] LA Volume BP 26.79 ml Lat E` Vel7.1 cm/sec [ 10.0 - 25.0 ] LA Volume Index 13.74 ml/m2 [ 16.00 - 34.00 ] Average E/E`8.20 RV Base Dimen 2D 3.9 cm [ 2.5 - 4.2 ] RV S`15.10 cm/sec TAPSE 2.19 cm [ 1.71 - 5.00 ] TR Peak Vel2.2 m/s [ 1.0 - 2.8 ] RA Volume 34.07 ml TR Peak PG19.4 mmHg RA Volume Index 17.47 ml/m2 PV Peak Vel1.0 m/s [ 0.4 - 0.8 ] AoR Diam 2D 3.12 cm [ 3.10 - 3.70 ] PV Peak PG4.00 mmHg Ao Root Index 1.60 cm/m2 [ 1.00 - 2.00 ] PI ED Qih051.97 m/sec Asc Ao Diam 2D3.97 cm Asc Ao Index2.04 cm/m2 Electronically Signed By: Zarina Iniguez MD 10/18/2024 9:33:58 AM CDT Shannon Mena MD CV ECHO PROCEDURES Final Result * M[facility] Mobile Cardiac Telemetry Event Monitor (10/18/2024 8:21 AM CDT) Anatomical Region Laterality Modality Electrocardiogra phy 11/16/2024 11:5 9 PM CDT Narrative 11/22/2024 5:05 PM CDT [facility] [place] [address] CARDIAC EVENT MONITOR REPORT Patient Name: LUIS WALSH M : 1955 (69y 2m) Gender: M Study Date: 11/16/2024 11:59:00 PM Ht(Inch): Wt(Lb): BSA: Tech: Location: [id number] Order Provider: SHANNON MENA BMI: Ref Provider: SHANNON MENA PROCEDURES: Event Report: [facility] MOBILE CARDIAC TELEMETRY EVENT MONITOR [[id number]]. Enrollment Period: 2024-10-18 00:00:00 through 2024-11-16 00:00:00. Monitor Number: BodyGuardian Mini PLUS Lite - MCT. Patient Instructions: Tech educated patient and applied the monitor and patient given monitor in office during appointment, patient understands directions and use of equipment. Location: [facility]. INDICATIONS: R00.2 Palpitations. FINDINGS: Event Data: Min Rate: 69 BPM Min Rate Timestamp: 2024-10-18 09:42:00 Max Rate: 126 BPM Max Rate Timestamp: 2024-10-18 10:55:00 Mean Rate: 93 BPM SIGNIFICANT PAUSES: 0 >3 sec SUMMARY: The patient's monitoring period was 10/18/2024 - 11/16/2024. Baseline sample showed Sinus Rhythm w/PVCs/PACs with a heart rate of 84.6 bpm. There were 0 critical, 0 serious, and 1 stable events that occurred. CONCLUSIONS: 1. The patient's monitoring period was 10/18/2024 - 11/16/2024. Baseline sample showed Sinus Rhythm w/PVCs/PACs with a heart rate of 84.6 bpm. There were 0 critical, 0 serious, and 1 stable events that occurred. 2. I have reviewed the PDF and all the ECG strips. I agree with the interpretations as detailed in the report. 3. The PDF can be found in the [facility] Patient chart. Please go to the Cardiology tab, click on the holter or event exam. Scroll to bottom where the ORDER-LEVEL Documents reside and click the blue link to the pdf. Electronically Signed By: Truong Willis Jr., M.D. 11/22/2024 5:00:43 PM CDT Procedure Note Truong Willis MD PhD - 11/22/2024 [facility] [place] [address] CARDIAC EVENT MONITOR REPORT Patient Name: LUIS WALSH M : 1955 (69y 2m) Gender: M Study Date: 11/16/2024 11:59:00 PM Ht(Inch): Wt(Lb): BSA: Tech: Location: [id number] Order Provider: SHANNON MENA BMI: Ref Provider: SHANNON MENA PROCEDURES: Event Report: MCT MOBILE CARDIAC TELEMETRY EVENT MONITOR [[id number]]. Enrollment Period: 2024-10-18 00:00:00 through 2024-11-16 00:00:00. Monitor Number: BodyGuardian Mini PLUS Lite - MCT. Patient Instructions: Tech educated patient and applied the monitor andpatient given monitor in office during appointment, patient understands directions anduse of equipment. Location: [facility]. INDICATIONS: R00.2 Palpitations. FINDINGS: Event Data: Min Rate: 69 BPM Min Rate Timestamp: 2024-10-18 09:42:00 Max Rate: 126 BPM Max Rate Timestamp: 2024-10-18 10:55:00 Mean Rate: 93 BPM SIGNIFICANT PAUSES: 0 >3 sec SUMMARY: The patient's monitoring period was 10/18/2024 - 11/16/2024.Baseline sample showed Sinus Rhythm w/PVCs/PACs with a heart rate of 84.6 bpm. There were0 critical, 0 serious, and 1 stable events that occurred. CONCLUSIONS: 1. The patient's monitoring period was 10/18/2024 - 11/16/2024. Baselinesample showed Sinus Rhythm w/PVCs/PACs with a heart rate of 84.6 bpm. There were 0critical, 0 serious, and 1 stable events that occurred. 2. I have reviewed the PDF and all the ECG strips. I agree with theinterpretations as detailed in the report. 3. The PDF can be found in the Epic Patient chart. Please go to theCardiology tab, click on the holter or event exam. Scroll to bottom where the ORDER-LEVELDocuments reside and click the blue link to the pdf. Electronically Signed By: Truong Willis Jr., M.D. 11/22/2024 5:00:43 PM CDT us Shannon Mena MD CV CARDIAC SERVICES PROC EDURES Final Result * eGFR (10/17/2024 10:46 PM CDT) eGFR >90 >=60 mL/min/1. 73 m2 Comment: Interpretive Data Reference Interval Normal >/= 90 mL/min/1.73m2 Mildly decreased* 60 - 89 mL/min/1.73m2 Mildly to moderately decreased 45 - 59 mL/min/1.73m2 Moderately to severely decreased 30 - 44 mL/min/1.73m2 Severely decreased 15 - 29 mL/min/1.73m2 Kidney Failure < 15 mL/min/1.73m2 *Relative to young adult level Estimated glomerular filtration rate is determined by the 2020 CKD-EPI equation recommended by the National Kidney Foundation (A Unifying Approach to GFR Estimation: Recommendations of the NKF-ASK Task Force on Reassessing the Inclusion of Race in Diagnosing Kidney Disease, JASN 2020). The CKD-EPI equation should not be used for patients with unstable renal function and has not been validated in children and those over 70. Current interpretive data was last reviewed 2021. Blood 10/17/2024 10:4 6 PM CDT 10/18/2024 12:37 AM CDT us Bandar Barber MD LAB BLOOD ORDERABLES Final R esult [facility] [place] [address] * (ABNORMAL) CBC without differential (10/17/2024 10:46 PM CDT) Pathologist [facility] WBC 6.36 3.80 - 9.90 K/cumm Hgb 14.1 13.0 - 17.5 g/dL [facility] Hct 40.9 38.9 - 50.3 % [facility] Plt 178 150 - 400 K/cumm [facility] MPV 9.8 9.1 - 12.3 fL [facility] RBC 4.03(L) 4.30 - 5.80 M/cumm [facility] MCV 101.5(H) 81.3 - 96.4 fL [facility] MCH 35.0(H) 27.1 - 33.3 pg [facility] MCHC 34.5 32.3 - 35.7 g/dL [facility] RDW CV 12.3 11.1 - 14.9 % [facility] RDW SD 46.5 35.7 - 48.1 fL [facility] NRBC abs 0.00 0.00 - 0.01 K/cumm [facility] Blood 10/17/2024 10:4 6 PM CDT 10/18/2024 12:36 AM CDT us Bandar Barber MD LAB BLOOD ORDERABLES Final R esult Performing Organization Address City/State/[facility] Co de Phone Number [facility] Department [place] [address] * (ABNORMAL) Basic metabolic panel (10/17/2024 10:46 PM CDT) Sodium 138 135 - 145 mmol/L Potassium, pl 4.5 3.3 - 4.9 mmol/L [facility] Chloride 102 97 - 110 mmol/L [facility] CO2 27 22 - 32 mmol/L [facility] Anion gap 9 2 - 15 mmol/L [facility] BUN 14 6 - 25 mg/dL [facility] Creatinine 0.69(L) 0.80 - 1.30 mg/dL [facility] Glucose 155 70 - 199 mg/dL [facility] Comment: Interpretive Data Fasting glucose >/= 126 mg/dl is diagnostic for diabetes. Fasting is defined as no caloric intake for at least 8 hours. Fasting glucose between 100 mg/dl to 125 mg/dl is diagnostic of prediabetes. In a patient with classic symptoms of hyperglycemia or hyperglycemic crisis, a random glucose >/= 200 mg/dl is diagnostic for diabetes. In the absence of unequivocal hyperglycemia, results should be confirmed by repeat testing. The classification and Diagnosis of Diabetes Diabetes Care 2021; 46: S19-S40. Current interpretive data was last revised 2022. Calcium 9.0 8.5 - 10.3 mg/dL [facility] Blood 10/17/2024 10:4 6 PM CDT 10/18/2024 12:37 AM CDT us Bandar Braber MD LAB BLOOD ORDERABLES Final R esult [facility] [place] [address] * MRI Brain Incl Orbits W WO Contrast (10/17/2024 9:32 PM CDT) Anatomical Region Laterality Modality Head and Neck N/A Magnetic Resonan ce 10/17/2024 10:0 0 PM CDT Impressions 10/18/2024 8:35 AM CDT Punctate subacute left cerebellar hemisphere infarct. No hemorrhage. No visible occipital lobe or orbital abnormality. The Critical results were discussed with Dr. Chey Leahy by Dr. Joaquim Clark on 10/17/2024 at 9:58 PM Dictated by: Joaquim Clark M.D. The radiology attending physician has personally reviewed this study, and had reviewed and/or edited this written report and agrees with it. Electronically signed by: Dick Joseph MD Narrative 10/18/2024 8:35 AM CDT EXAMINATION: 1. Magnetic resonance imaging (MRI) of the brain and brainstem without and with contrast 2. Magnetic resonance imaging (MRI) of the orbits without and with contrast HISTORY: 69 years-old Male with Vision loss, monocular. TECHNIQUE: Multiplanar multi-weighted MRI of the brain and brainstem was performed without and with intravenous contrast using the general brain protocol. Multiplanar multi-weighted MRI of the orbits was performed without and with intravenous contrast using the standard protocol. This included multiplanar high resolution imaging of the orbits and optic nerves. Contrast information: 14 mL Gadoterate Meglumine IV COMPARISON: CT angiogram brain and neck from 10/15/2024. FINDINGS: ORBITS: Both globes are normal in shape and outline without proptosis. The extraocular muscles are normal in size. No intra- or extraconal masses are present. The intraconal fat is normal. The orbital cody are intact. The lacrimal glands are normal in appearance. Meckel's cave appears normal on each side. The carotid artery flow voids are normal. The optic nerves and optic chiasm are normal. The suprasellar cistern is normal. There is no abnormal contrast enhancement. BRAIN: There is mild diffuse cerebral volume loss. Mild periventricular, subcortical and patchy central pontine white matter T2/FLAIR hyperintensities, nonspecific but most likely representing chronic small vessel ischemic disease. There is a focus of diffusion restriction in the left cerebellar hemisphere (series 11 image 66) which may represent acute/subacute lacunar infarct The scalp and calvarium are normal. The superior sagittal sinus demonstrates normal venous flow. The corpus callosum is normal in shape and signal intensity. The posterior fossa is unremarkable. The pituitary and sella are normal. The brainstem and craniocervical junction are unremarkable. The susceptibility weighted sequences reveal no evidence of acute or chronic hemorrhage. The ventricles are normal in size and position without evidence of hydrocephalus. The paranasal sinuses are normal. The visualized portions of the mastoids are unremarkable. The orbits appear normal. Normal flow voids are demonstrated in the carotid arteries and basilar artery. There is no abnormal contrast enhancement. Procedure Note Dick Joseph MD PhD - 10/18/2024 EXAMINATION: 1. Magnetic resonance imaging (MRI) of the brain and brainstem without and with contrast 2. Magnetic resonance imaging (MRI) of the orbits without and with contrast HISTORY: 69 years-old Male with Vision loss, monocular. TECHNIQUE: Multiplanar multi-weighted MRI of the brain and brainstem was performed without and with intravenous contrast using the general brain protocol. Multiplanar multi-weighted MRI of the orbits was performed without and with intravenous contrast using the standard protocol. This included multiplanar high resolution imaging of the orbits and optic nerves. Contrast information: 14 mL Gadoterate Meglumine IV COMPARISON: CT angiogram brain and neck from 10/15/2024. FINDINGS: ORBITS: Both globes are normal in shape and outline without proptosis. The extraocular muscles are normal in size. No intra- or extraconal masses are present. The intraconal fat is normal. The orbital cody are intact. The lacrimal glands are normal in appearance. Meckel's cave appears normal on each side. The carotid artery flow voids are normal. The optic nerves and optic chiasm are normal. The suprasellar cistern is normal. There is no abnormal contrast enhancement. BRAIN: There is mild diffuse cerebral volume loss. Mild periventricular, subcortical and patchy central pontine white matter T2/FLAIR hyperintensities, nonspecific but most likely representing chronic small vessel ischemic disease. There is a focus of diffusion restriction in the left cerebellar hemisphere (series 11 image 66) which may represent acute/subacute lacunar infarct The scalp and calvarium are normal. The superior sagittal sinus demonstrates normal venous flow. The corpus callosum is normal in shape and signal intensity. The posterior fossa is unremarkable. The pituitary and sella are normal. The brainstem and craniocervical junction are unremarkable. The susceptibility weighted sequences reveal no evidence of acute or chronic hemorrhage. The ventricles are normal in size and position without evidence of hydrocephalus. The paranasal sinuses are normal. The visualized portions of the mastoids are unremarkable. The orbits appear normal. Normal flow voids are demonstrated in the carotid arteries and basilar artery. There is no abnormal contrast enhancement. IMPRESSION: Punctate subacute left cerebellar hemisphere infarct. No hemorrhage. No visible occipital lobe or orbital abnormality. The Critical results were discussed with Dr. Chey Leahy by Dr. Joaquim Clark on 10/17/2024 at 9:58 PM Dictated by: Joaquim Clark M.D. The radiology attending physician has personally reviewed this study, and had reviewed and/or edited this written report and agrees with it. Electronically signed by: Dick Joseph MD Shannon Mena MD IMG MRI PROCEDURES Final Result * (ABNORMAL) POCT glucose (10/17/2024 7:43 PM CDT) Glucose, POC 203(H) 70 - 199 mg/dL Blood 10/17/2024 7:43 PM CDT 10/17/2024 7:43 PM CDT Shannon Mena MD LAB POCT ORDERABLES - DE VICE Final Result [facility] Department [place] [address] * US Liver (10/17/2024 6:25 PM CDT) Anatomical Region Laterality Modality Abdomen N/A Ultrasound 10/18/2024 6:30 AM CDT Impressions 10/18/2024 6:30 AM CDT 1. Normal liver sonogram. Electronically signed by: Braeden Torres M.D. Narrative 10/18/2024 6:30 AM CDT EXAMINATION: LIVER SONOGRAM HISTORY: Assess for hepatocellular carcinoma. COMPARISON: None FINDINGS: Liver: The liver is normal in size. The echotexture is normal. The echogenicity is normal. There is no surface nodularity. No focal solid lesions are visualized. Bile Duct: There is no intrahepatic bile duct dilatation. The diameter of the common duct is 3 mm in the proximal segment Other Findings: There is no ascites. Procedure Note Braeden Torres MD - 10/18/2024 EXAMINATION: LIVER SONOGRAM HISTORY: Assess for hepatocellular carcinoma. COMPARISON: None FINDINGS: Liver: The liver is normal in size. The echotexture is normal. The echogenicity is normal. There is no surface nodularity. No focal solid lesions are visualized. Bile Duct: There is no intrahepatic bile duct dilatation. The diameter of the common duct is 3 mm in the proximal segment Other Findings: There is no ascites. IMPRESSION: 1. Normal liver sonogram. Electronically signed by: Braeden Torres M.D. us Shannon Mena MD IMG US PROCEDURES Final Result * (ABNORMAL) POCT glucose (10/17/2024 4:33 PM CDT) Glucose, POC 219(H) 70 - 199 mg/dL Blood 10/17/2024 4:33 PM CDT 10/17/2024 4:33 PM CDT us Shannon Mena MD LAB POCT ORDERABLES - DE VICE Final Result Performing Organization Address [facility] Co de Phone Number [facility] [place] [address] * POCT glucose (10/17/2024 11:42 AM CDT) Glucose, POC 156 70 - 199 mg/dL Blood 10/17/2024 11:4 2 AM CDT 10/17/2024 11:42 AM CDT Shannon Mena MD LAB POCT ORDERABLES - DE VICE Final Result Performing Organization Address [facility] Phone Number [facility] [place] [address] * POCT glucose (10/17/2024 8:47 AM CDT) Glucose, POC 91 70 - 199 mg/dL Blood 10/17/2024 8:47 AM CDT 10/17/2024 8:47 AM CDT Shannon Mena MD LAB POCT ORDERABLES - DE VICE Final Result Performing Organization Address [facility] Phone Number [facility] [place] [address] * Lipid panel (10/16/2024 8:48 PM CDT) Cholesterol 120 30 - 199 mg/dL Comment: Interpretive Data Ages < or = 19 years Acceptable: <170 mg/dL Borderline high: 170-199 mg/dL High: >or= 200 mg/dL Ages > or = 20 years Desirable: <200 mg/dL Borderline high: 200-239 mg/dL High: >or= 240 mg/dL Literature References: 1. Expert Panel on Integrated Guidelines for Cardiovascular Health and Risk Reduction in Children and Adolescents. Pediatrics 2011;128:S213 2. NCEP Expert Panel. Circulation 2004;110:227 Current Interpretive Data was last revised on 2017. Triglycerides 97 <=149 mg/dL [facility] Comment: Interpretive Data Ages < or = 9 years Acceptable: <75 mg/dL Borderline high: 75-99 mg/dL High: >or= 100 mg/dL Ages 10 to 20 years Acceptable: <90 mg/dL Borderline high: 90-129 mg/dL High: >or= 130 mg/dL Ages > or = 20 years Desirable: <150 mg/dL Borderline high: 150-199 mg/dL High: 200-499 mg/dL Very high: >or= 499 mg/dL Literature References: 1. Expert Panel on Integrated Guidelines for Cardiovascular Health and Risk Reduction in Children and Adolescents. Pediatrics 2011;128:S213 2. NCEP Expert Panel. Circulation 2004;110:227 Current Interpretive Data was last revised on 2017. HDL 51 >=40 mg/dL [facility] Comment: Interpretive Data Ages < or = 19 years Acceptable: >45 mg/dL Borderline low: 40-45 mg/dL Low: <40 mg/dL Ages > or = 20 years Desirable: >or= 60 mg/dL Low: <40 mg/dL Literature References: 1. Expert Panel on Integrated Guidelines for Cardiovascular Health and Risk Reduction in Children and Adolescents. Pediatrics 2011;128:S213 2. NCEP Expert Panel. Circulation 2004;110:227 Current Interpretive Data was last revised on 2017. LDL, calculated 51 <=129 mg/dL [facility] Comment: Interpretive Data Ages < or = 19 years Acceptable: <110 mg/dL Borderline high: 110-129 mg/dL High: >or= 130 mg/dL Ages > or = 20 years Optimal: <100 mg/dL Near optimal: 100-129 mg/dL Borderline high: 130-159 mg/dL High: >160 mg/dL Calculated using the Jase LDL-C estimating equation. This equation was implemented on 2023. Prior to this date LDL-C was estimated using the Friedewald equation. Literature References: 1. Expert Panel on Integrated Guidelines for Cardiovascular Health and Risk Reduction in Children and Adolescents. Pediatrics 2011;128:S213 2. NCEP Expert Panel. Circulation 2004;110:227 3. Jase Baptiste et al. LUCIANO Cardiol. 2020 August 04;5(5):540-548. doi: 10.1001/[email or web address].2020.0013 Current Interpretive Data was last revised on 2023. Non-HDL Cholesterol 69 mg/dL [facility] Comment: Interpretive Data Ages < or = 19 years Acceptable: <120 mg/dL Borderline high: 120-144 mg/dL High: >145 mg/dL Ages > or = 20 years When triglycerides are >200 mg/dL, Non-HDL cholesterol is a secondary target of therapy with treatment goals that are 30 mg/dL greater than the LDL cholesterol target. Literature References: 1. Expert Panel on Integrated Guidelines for Cardiovascular Health and Risk Reduction in Children and Adolescents. Pediatrics 2011;128:S213 2. NCEP Expert Panel. Circulation 2004;110:227 Current Interpretive Data was last revised on 2017. Chol/HDL ratio 2 [facility] Blood 10/16/2024 8:48 PM CDT 10/16/2024 10:16 PM CDT us Felicia Childs MD LAB BLOOD ORDERABLES Final Result [facility] [place] [address] * (ABNORMAL) Hemoglobin A1c (10/11/2024 5:02 PM CDT) Hgb A1C 7.6(H) 4.0 - 5.6 % Estimated Average Glucose 171 mg/dL [facility] Comment: The ADA recommends reporting an estimated Average Glucose (eAG) with all Hemoglobin A1c results using the equation derived from a study of 507 normal and diabetic adults. Minority populations were underrepresented and children were not included. (Diabetes Care 2020; 43(S1): S66-S76). The eAG is not equivalent to a fasting glucose. Blood 10/11/2024 5:02 PM CDT 10/11/2024 5:21 PM CDT us Valencia Xiao MD LAB BLOOD ORDERABLES Final Re sult [facility] [place] [address] * CT Abdomen Pelvis W Contrast (02/15/2017 6:07 AM TREATING AND PUMPING SUPERVISOR) Anatomical Region Laterality Modality Body N/A Computed Tomogra phy 02/15/2017 6:07 AM TREATING AND PUMPING SUPERVISOR Narrative 02/15/2017 3:43 PM TREATING AND PUMPING SUPERVISOR MAHENDRA GARRETT M.D. FINAL REPORT ACC# Date Time Exam [id number] Feb 15, 2017 00:07:[id number] Abd and Pelvis with cont EXAMINATION: ORIGINAL REPORT Computed tomography of the abdomen with intravenous contrast HISTORY: 61-year-old male presenting with one week history of bloody stools and 3 month history of testicular pain, nausea, and vomiting TECHNIQUE: Transaxial computed tomographic images of the abdomen were obtained with intravenous contrast according to the standard protocol after the uneventful administration of 93 mL Opti-Ray 350 intravenous contrast. COMPARISON: None FINDINGS: Limited evaluation of the lung bases demonstrates mild atelectasis in the lower lobes. Ground glass nodules in the lingula appear inflammatory. The heart size is normal, with trace pericardial fluid. Calcified left hilar lymph nodes represents sequelae of old granulomatous disease. The esophagus and stomach are normal. The course and caliber of the bowel is normal. There is diverticulosis of the descending colon, without diverticulitis. The appendix is viewed in its entirety and is normal. The mesentery is normal. The liver is normal, without biliary dilatation. The portal vein is patent. The gallbladder is decompressed. The diameter of the common bile duct is normal. The pancreas is normal, without mass, ductal dilatation, or calcification. Calcifications within the spleen represent sequelae of old granulomatous disease. There is a simple cyst in upper pole of the right kidney. Multiple tiny, nonobstructing renal stones are seen on the right, measuring up to 2 mm in the upper pole. The adrenal glands are normal. The ureters are normal. The bladder is thick-walled. The prostate is normal. There is no free intraabdominal gas or fluid. There is no retroperitoneal, mesenteric, or pelvic lymphadenopathy. The abdominal aorta is normal. Bone windows do not demonstrate concerning osseous lesions. There is severe facet osteoarthritis and multilevel degenerative disc disease, with vacuum phenomenon at multiple levels. IMPRESSION: 1. Diverticulosis of the descending colon, without diverticulitis 2. Multiple tiny, nonobstructing right renal stones 3. 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 ADDENDUM #1 ADDENDUM Addendum issued at 02/20/2017 3:[address] Garrett. The purpose of this addendum is to correct the exam title and technique for accurate documentation to the following: EXAMINATION: Computed tomography of the abdomen and pelvis with intravenous contrast TECHNIQUE: Transaxial computed tomographic images of the abdomen and pelvis were obtained with intravenous contrast according to the standard protocol after the uneventful administration of 93 mL Optiray 350 intravenous contrast. Electronically signed by: Mahendra Garrett M.D. Requested By: ASHA MEJIA [facility] Dictated By: LENORE CRUZ M.D. on Feb 15 2017 9:41A This document has been electronically signed by: MAHENDRA GARRETT M.D. on Feb 15 2017 9:41A on Feb 20 2017 4:58P This Addendum has been electronically signed by: MAHENDRA GARRETT M.D. on Feb 20 2017 3:59P [id number] GARRETT M.D. FINAL REPORT Attending: NIGEL MAS Requesting: ASHA MEJIA Requesting Fax: Attending Fax: Attending ID: [id number] Requesting ID: [id number] Report To 1 ID: [id number] Report To 1 Name: , Report To 1 FAX: NextGen Order #: Procedure Note Miscellaneous, Not In File - 02/20/2017 MAHENDRA GARRETT M.D. FINAL REPORT ACC# Date Time Exam [id number] Feb 15, 2017 00:07:[id number] Abd and Pelvis with cont EXAMINATION: ORIGINAL REPORT Computed tomography of the abdomen with intravenous contrast HISTORY: 61-year-old male presenting with one week history of bloody stools and 3 month history of testicular pain, nausea, and vomiting TECHNIQUE: Transaxial computed tomographic images of the abdomen were obtained with intravenous contrast according to the standard protocol after the uneventful administration of 93 mL Opti-Ray 350 intravenous contrast. COMPARISON: None FINDINGS: Limited evaluation of the lung bases demonstrates mild atelectasis in the lower lobes. Ground glass nodules in the lingula appear inflammatory. The heart size is normal, with trace pericardial fluid. Calcified left hilar lymph nodes represents sequelae of old granulomatous disease. The esophagus and stomach are normal. The course and caliber of the bowel is normal. There is diverticulosis of the descending colon, without diverticulitis. The appendix is viewed in its entirety and is normal. The mesentery is normal. The liver is normal, without biliary dilatation. The portal vein is patent. The gallbladder is decompressed. The diameter of the common bile duct is normal. The pancreas is normal, without mass, ductal dilatation, or calcification. Calcifications within the spleen represent sequelae of old granulomatous disease. There is a simple cyst in upper pole of the right kidney. Multiple tiny, nonobstructing renal stones are seen on the right, measuring up to 2 mm in the upper pole. The adrenal glands are normal. The ureters are normal. The bladder is thick-walled. The prostate is normal. There is no free intraabdominal gas or fluid. There is no retroperitoneal, mesenteric, or pelvic lymphadenopathy. The abdominal aorta is normal. Bone windows do not demonstrate concerning osseous lesions. There is severe facet osteoarthritis and multilevel degenerative disc disease, with vacuum phenomenon at multiple levels. IMPRESSION: 1. Diverticulosis of the descending colon, without diverticulitis 2. Multiple tiny, nonobstructing right renal stones 3. 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 ADDENDUM #1 ADDENDUM Addendum issued at 02/20/2017 3:[address] Garrett. The purpose of this addendum is to correct the exam title and technique for accurate documentation to the following: EXAMINATION: Computed tomography of the abdomen and pelvis with intravenous contrast TECHNIQUE: Transaxial computed tomographic images of the abdomen and pelvis were obtained with intravenous contrast according to the standard protocol after the uneventful administration of 93 mL Optiray 350 intravenous contrast. Electronically signed by: Mahendra Garrett M.D. Requested By: ASHA MEJIA [facility] Dictated By: LENORE CRUZ M.D. on Feb 15 2017 9:41A This document has been electronically signed by: MAHENDRA GARRETT M.D. on Feb 15 2017 9:41A on Feb 20 2017 4:58P This Addendum has been electronically signed by: MAHENDRA GARRETT M.D. on Feb 20 2017 3:59P [id number] GARRETT M.D. FINAL REPORT Attending: NIGEL MAS Requesting: ASHA MEJIA Requesting Fax: Attending Fax: Attending ID: [id number] Requesting ID: [id number] Report To 1 ID: [id number] Report To 1 Name: , Report To 1 FAX: NextGen Order #: Asha Mejia [facility] [employer] IMG CT PROCEDURES Ed ited Result - Final from Last 3 Months or Most Recently Relevant to Health Maintenance [place] [address] MEDICARE [facility] [place] [address] [facility] [place] Member Subscriber Plan / Payer (Ef fective 2023-Present) Name:Luis Walsh Relation to Subscriber:Self Name:Luis Walsh Payer ID:[id number] (NAIC) Type:MEDICARE RISK OTHER Address: [place] [address] Advance Directives For more information, please contact: [phone] * Full Code (Latest Code Status on File) Date Activated Date Inactivated Comments 11/09/2024 5:24 PM 11/23/2024 8:30 PM * Full Code Date Activated Date Inactivated Comments 10/15/2024 7:02 PM 10/18/2024 5:32 PM * Full Code Date Activated Date Inactivated Comments 11/22/2020 7:29 PM 11/26/2020 9:53 PM * Full Code Date Activated Date Inactivated Comments 11/05/2020 12:43 AM 11/09/2020 10:13 PM * Full Code Date Activated Date Inactivated Comments 04/01/2019 7:56 PM 04/05/2019 6:59 PM Care Teams Information Security Engineer Relationship Specialty Start Date End Date No, Physician PCP - General 10/03/24
[2025-01-17 21:46] VITALS: BP 116/79; PULSE 84; RESP 17; TEMP 36.9; O2SAT 100
[2025-01-17 22:11] LABS: Hematocrit 35.9 % (42.0-52.0); Hemoglobin 11.9 g/dL (14.0-18.0); Immature Granulocyte Percent A 0.5 % (0-0.5); Lymphocytes Absolute Auto 1.67 K/mm3 (0.9-3.2); Mean Corpuscular HGB Conc 33.1 g/dl (32-36); Mean Corpuscular Hemoglobin 35.2 pg (26-34); Mean Corpuscular Volume 106.2 fl (80-100); Nucleated Red Blood Cells Absolute Auto 0.000 K/mm3 (0.0-0.012); Nucleated Red Blood Cells Perc 0.0 % (0.0-0.2); Platelet Count Result 159 k/mm3 (150-375); Red Blood Count 3.38 M/mm3 (4.6-6.20); White Blood Count 9.2 K/mm3 (4.5-10.0)
[2025-01-17 22:22] LABS: Schistocytes None Seen
[2025-01-17 22:24] LABS: Estimated CRCL calculation 77 ml/min; Estimated Glomerular Filt Rate > 60
[2025-01-17 22:31] LABS: Alanine Aminotransferase 13 U/L (6-50); Albumin Level 3.1 g/dL (3.5-5.1); Alkaline Phosphatase 81 U/L (38-126); Anion Gap 6 mmol/L (4-12); Aspartate Amino Transferase 20 U/L (17-59); Bilirubin,Total 0.2 mg/dL (0.2-1.3); Blood Urea Nitrogen 13 mg/dL (9-20); Calcium 8.6 mg/dL (8.4-10.2); Carbon Dioxide 25 mmol/L (22-30); Chloride 105 mmol/L (98-107); Estimated CRCL calculation 92 ml/min; Estimated Glomerular Filt Rate > 60; Glucose 216 mg/dL (65-110); Lipase 34 U/L (23-300); Magnesium 1.5 mg/dL (1.6-2.3); Potassium 3.8 mmol/L (3.4-5.0); Sodium 136 mmol/L (137-145); Total Protein 6.5 g/dL (6.3-8.2)
[2025-01-17] MEDS: PANTOPRAZOLE SODIUM IV 40 MG VIAL 80 MG IV PUSH (22:40)
[2025-01-17] MEDS: MORPHINE SULFATE (*CRX) 4 MG/ML INJ 2 MG IV PUSH (23:01)
--- NOTE | 2025-01-17 23:04 | ED.GIBLEED ---
HPI - GI Bleed General Chief complaint: GI Bleed <Candy Travis APRN - Last Filed: 01/18/25 01:06> Stated complaint: GI BLEED; LOW ABD PAIN & RECTAL BLEEDING <Candy Travis APRN - Last Filed: 01/18/25 01:06> Time Seen by Provider: 01/17/25 21:26 <Candy Travis APRN - Last Filed: 01/18/25 01:06> History of Present Illness HPI Narrative: Patient is a 69-year-old male who presents to the ER with concerns of rectal bleeding. He reports bleeding started earlier today. Patient reports he has had multiple loose bowel movements today. He endorses lower abdominal pain. Patient reports he is not on blood thinners. He denies any recent fevers, nausea and vomiting, urinary symptoms, or acute back pain. Patient endorses a history of a stroke but is not on blood thinners. He denies any other pertinent medical history. <Candy Travis APRN - Last Filed: 01/18/25 01:06> Related Data Home medications: Home Medications ?Medication ?Instructions ?Recorded ?Confirmed ?Last Taken ?Type atorvastatin 20 mg tablet 20 mg PO DAILY 01/17/25 01/18/25 Unknown History gabapentin 300 mg capsule 300 mg PO TID 01/17/25 01/18/25 Unknown History lisinopril 20 mg tablet 20 mg PO DAILY 01/17/25 01/18/25 Unknown History metformin 500 mg tablet mg 01/17/25 Unknown History sertraline 50 mg tablet 50 mg PO DAILY 01/17/25 01/18/25 Unknown History tamsulosin 0.4 mg capsule 0.4 mg PO DAILY 01/17/25 01/18/25 Unknown History <Candy Travis APRN - Last Filed: 01/18/25 01:06> Allergies/Adverse reactions: Allergies Allergy/AdvReac Type Severity Reaction Status Date / Time Penicillins Allergy Unknown Verified 01/17/25 21:51 Sulfa (Sulfonamide Allergy Unknown Verified 01/17/25 21:51 Antibiotics) <Candy Travis APRN - Last Filed: 01/18/25 01:06> Review of Systems Review of Systems: All systems reviewed & are unremarkable except as noted in HPI and below <Candy Travis APRN - Last Filed: 01/18/25 01:06> Exam Narrative: GENERAL: Well appearing, well-nourished, non-toxic, in mild distress. HEAD: Normocephalic, atraumatic. NECK: Supple. No adenopathy, no masses. RESPIRATORY: Airway patent, respirations nonlabored. Clear to auscultation bilaterally, no rales, rhonchi, wheezing. CARDIOVASCULAR: Regular rate and rhythm without murmurs, rubs, or gallops. Peripheral pulses 2+ and equal bilaterally. ABDOMINAL: Soft, tender bilateral lower extremities, nondistended, no hepatosplenomegaly. Normoactive BS. MUSCULOSKELETAL: Moves all extremities. Strength/ROM intact without gross deformities. SKIN: Warm, dry, normal color. No rashes. NEURO: A&O X3. Speech clear. Cranial nerves II-XII intact. No ataxic movements. PSYCHIATRIC: Appropriate mood and affect. Normal interaction. : bright red bleeding with clots, no visible hemorrhoids <Candy Travis APRN - Last Filed: 01/18/25 01:06> Course GROCERY STORE MANAGER/PA Physician Supervision This visit was performed by both a physician and an APC. For this patient encounter, I reviewed the GROCERY STORE MANAGER or PA documentation, treatment plan, and medical decision making and had [id number] time with this patient. I performed all aspects of the MDM as documented. <Gisella Landers MD - Last Filed: 01/18/25 01:44> Vital Signs Vital signs: Vital Signs Temperature 98.5 F 01/17/25 21:46 Pulse Rate 84 01/17/25 21:46 Respiratory Rate 17 01/17/25 21:46 Blood Pressure 116/79 01/17/25 21:46 Pulse Oximetry 100 01/17/25 21:46 Oxygen Delivery Room Air 01/17/25 21:46 Temperature 98.5 F 01/17/25 21:46 Pulse Rate 84 01/17/25 21:46 Respiratory Rate 17 01/17/25 21:46 Blood Pressure 116/79 01/17/25 21:46 Pulse Oximetry 100 01/17/25 21:46 Oxygen Delivery Room Air 01/17/25 21:46 <Candy Travis APRN - Last Filed: 01/18/25 01:06> Vital Signs Temperature 98.5 F 01/17/25 21:46 Pulse Rate 84 01/17/25 21:46 Respiratory Rate 17 01/17/25 21:46 Blood Pressure 116/79 01/17/25 21:46 Pulse Oximetry 100 01/17/25 21:46 Oxygen Delivery Room Air 01/17/25 21:46 Temperature 98.5 F 01/17/25 21:46 Pulse Rate 84 01/17/25 21:46 Respiratory Rate 17 01/17/25 21:46 Blood Pressure 116/79 01/17/25 21:46 Pulse Oximetry 100 01/17/25 21:46 Oxygen Delivery Room Air 01/17/25 21:46 <Gisella Landers MD - Last Filed: 01/18/25 01:44> MDM - GI Bleed MDM Narrative Medical decision making narrative: Patient is a 69-year-old male who presents to the ER with concerns of rectal bleeding. He reports bleeding started earlier today. Patient reports he has had multiple loose bowel movements today. He endorses lower abdominal pain. Patient reports he is not on blood thinners. He denies any recent fevers, nausea and vomiting, urinary symptoms, or acute back pain. Patient endorses a history of a stroke but is not on blood thinners. He denies any other pertinent medical history. Labs Ordered: CBC, CMP, type and screen, magnesium, PTT, INR, lipase, lactic acid Imaging Ordered: CTA abdomen pelvis Medications Ordered: 1 L normal saline IV bolus, Protonix 80 mg IV, morphine 2 mg IV, MiraLax p.o. Results: Patient's CT scan indicates The liver parenchyma is unremarkable. No intrahepatic mass or ductal dilatation is evident. The gallbladder is unremarkable. The pancreas and spleen are normal in appearance. The adrenal glands are symmetric in size. The kidneys are unremarkable. No intrarenal stones are noted. There is no hydronephrosis. Small hiatal hernia. The stomach and bowel loops are unremarkable. Bladder wall is thickened. No free fluid or air is evident. Prominent left inguinal lymph node measures 10 mm. There is no abdominal or pelvic lymphadenopathy. The lower thoracic and lumbar spines are unremarkable. The lung bases are clear. Diagnosis: Rectal bleed, abdominal pain Consults: 2300- Spoke with gastroenterology, Dr. Mott, who reports he will consult on patient in the morning. 2330- Spoke with hospitalist, Dr. Dorman, who is in agreement with plan for admission. Pt will be started on a bowel prep, Miralax. He will be continued on IV fluids and H & Hs will be drawn every six hours. Pt will be admitted to the med/surg floor with telemetry. * Pt endorses chronic pain in his bilateral lower extremities. Will give Morphine 2mg IV for pain control. MDM: Results of imaging and lab work shared with patient. Another rectal exam was performed and pt continues to have small amount of bright red rectal bleeding from his anus. It was advised patient be admitted to the hospital for further evaluation and treatment. Patient verbalized understanding and is in agreement with plan. CRITICAL CARE ADDENDUM: Indication: Rectal bleeding Time type: intermittent I provided a total of 55 minutes of critical care excluding separately billable procedures. This includes time w/ EMS, initial bedside evaluation, reviewing old records, review of testing done while under my care, discussion w/ the family, nurses, therapeutic consultant and guiding the patient?s care while in the emergency department. Approximate time distribution: 15 minutes ? Initial evaluation, d/w involved parties, attempting to gather old records. 10 minutes ? Documenting medical record 10 minutes ? Review of results (EKGs, labs, imaging) 10 minutes ? Serial repeat bedside evaluation 10 minutes ? Discussing case with multiple providers Please see main chart for details. Excludes separately billable procedures. <Canyd Travis, ELECTRICIAN WIRING - Last Filed: 01/18/25 01:06> Differential Diagnosis Differential diagnosis: Likely hemorrhoids, esophageal varices, Veronica-Lovett syndrome, Lower gastrointestinal hemorrhage, hematochezia, melena and anal fissure <Candy Travis ELECTRICIAN WIRING - Last Filed: 01/18/25 01:06> Lab Data Attestation: I reviewed the patient's lab results. <Candy Travis APRN - Last Filed: 01/18/25 01:06> Result diagrams: 01/17/25 22:04 01/17/25 22:12 <Candy Travis APRN - Last Filed: 01/18/25 01:06> Labs: Lab Results 10/14/25 10/14/25 10/14/25 Range/Units 22:04 22:12 22:39 WBC 9.2 (4.5-10.0) K/mm3 RBC 3.38 L (4.6-6.20) M/mm3 Hgb 11.9 L (14.0-18.0) g/dL Hct 35.9 L (42.0-52.0) % MCV 106.2 H (80-100) fl MCH 35.2 H (26-34) pg MCHC 33.1 (32-36) g/dl RDW 12.5 (11.5-14.5) % Plt Count 159 (150-375) k/mm3 MPV 8.8 (7.4-10.4) fl Immature Gran % (Auto) 0.5 (0-0.5) % Neut % (Auto) 65.6 (45.5-73.1) % Lymph % (Auto) 18.2 L (18.3-44.2) % [place] % (Auto) 10.4 H (2.6-8.5) % Eos % (Auto) 4.8 H (0-4.4) % Baso % (Auto) 0.5 (0.2-1.2) % Lymph # (Auto) 1.67 (0.9-3.2) K/mm3 [place] # (Auto) 1.0 H (0.1-0.6) K/mm3 Eos # (Auto) 0.4 H (0-0.3) K/mm3 Baso # (Auto) 0.1 (0.0-0.1) K/mm3 Abs Immat Gran (auto) 0.05 H (0.00-0.031) K/mm3 Absolute Neuts (auto) 6.0 (1.3-6.7) K/mm3 Absolute Nucleated RBC 0.000 (0.0-0.012) K/mm3 Band Neutrophils % Not Reportable Nucleated RBC % 0.0 (0.0-0.2) % Platelet Estimate Adequate (Adequate) Schistocytes None seen PT 15.1 H (11.1-14.7) Seconds INR 1.2 APTT 29.2 (22.3-36.8) Seconds Sodium 136 L (137-145) mmol/L Potassium 3.8 (3.4-5.0) mmol/L Chloride 105 (98-107) mmol/L Carbon Dioxide 25 (22-30) mmol/L Anion Gap 6 (4-12) mmol/L BUN 13 (9-20) mg/dL Creatinine 0.66 L 0.80 (0.7-1.3) mg/dL Estim Creat Clear Calc 92 77 ml/min Estimated GFR > 60 > 60 (59 - ) Glucose 216 H (65-110) mg/dL Lactic Acid 1.9 (0.7-2.0) mmol/L Calcium 8.6 (8.4-10.2) mg/dL Magnesium 1.5 L (1.6-2.3) mg/dL Total Bilirubin 0.2 (0.2-1.3) mg/dL AST 20 (17-59) U/L ALT 13 (6-50) U/L Alkaline Phosphatase 81 (38-126) U/L Total Protein 6.5 (6.3-8.2) g/dL Albumin 3.1 L (3.5-5.1) g/dL Lipase 34 (23-300) U/L Blood Type O Negative Antibody Screen Negative <Candy Travis, ELECTRICIAN WIRING - Last Filed: 01/18/25 01:06> Lab Results 01/17/25 01/17/25 01/17/25 Range/Units 22:04 22:12 22:39 WBC 9.2 (4.5-10.0) K/mm3 RBC 3.38 L (4.6-6.20) M/mm3 Hgb 11.9 L (14.0-18.0) g/dL Hct 35.9 L (42.0-52.0) % MCV 106.2 H (80-100) fl MCH 35.2 H (26-34) pg MCHC 33.1 (32-36) g/dl RDW 12.5 (11.5-14.5) % Plt Count 159 (150-375) k/mm3 MPV 8.8 (7.4-10.4) fl Immature Gran % (Auto) 0.5 (0-0.5) % Neut % (Auto) 65.6 (45.5-73.1) % Lymph % (Auto) 18.2 L (18.3-44.2) % [place] % (Auto) 10.4 H (2.6-8.5) % Eos % (Auto) 4.8 H (0-4.4) % Baso % (Auto) 0.5 (0.2-1.2) % Lymph # (Auto) 1.67 (0.9-3.2) K/mm3 [place] # (Auto) 1.0 H (0.1-0.6) K/mm3 Eos # (Auto) 0.4 H (0-0.3) K/mm3 Baso # (Auto) 0.1 (0.0-0.1) K/mm3 Abs Immat Gran (auto) 0.05 H (0.00-0.031) K/mm3 Absolute Neuts (auto) 6.0 (1.3-6.7) K/mm3 Absolute Nucleated RBC 0.000 (0.0-0.012) K/mm3 Band Neutrophils % Not Reportable Nucleated RBC % 0.0 (0.0-0.2) % Platelet Estimate Adequate (Adequate) Schistocytes None seen PT 15.1 H (11.1-14.7) Seconds INR 1.2 APTT 29.2 (22.3-36.8) Seconds Sodium 136 L (137-145) mmol/L Potassium 3.8 (3.4-5.0) mmol/L Chloride 105 (98-107) mmol/L Carbon Dioxide 25 (22-30) mmol/L Anion Gap 6 (4-12) mmol/L BUN 13 (9-20) mg/dL Creatinine 0.66 L 0.80 (0.7-1.3) mg/dL Estim Creat Clear Calc 92 77 ml/min Estimated GFR > 60 > 60 (59 - ) Glucose 216 H (65-110) mg/dL Lactic Acid 1.9 (0.7-2.0) mmol/L Calcium 8.6 (8.4-10.2) mg/dL Magnesium 1.5 L (1.6-2.3) mg/dL Total Bilirubin 0.2 (0.2-1.3) mg/dL AST 20 (17-59) U/L ALT 13 (6-50) U/L Alkaline Phosphatase 81 (38-126) U/L Total Protein 6.5 (6.3-8.2) g/dL Albumin 3.1 L (3.5-5.1) g/dL Lipase 34 (23-300) U/L Blood Type O Negative Antibody Screen Negative <Gisella Landers MD - Last Filed: 01/18/25 01:44> Imaging Data Attestation: I personally reviewed and interpreted this imaging study as follows: <Candy Travis APRN - Last Filed: 01/18/25 01:06> Radiologist's impression: Impressions Abdomen/Pelvis CTA 01/17/25 22:38 IMPRESSION: No contrast blush is seen to suggest acute bleed. No hemodynamically significant stenosis. Small hiatal hernia is noted. Nonspecific thickening of the bladder wall. All CT scans at this facility are performed using low dose modulation techniques as appropriate to perform exam including the following: automated exposure control; use of iterative reconstruction technique; adjustment of the mA and/or kV according to patient size (this includes techniques or standardized protocols for targeted exams where dose is matched to indication/reason for exam). <Candy Travis APRN - Last Filed: 01/18/25 01:06> Critical Care Time Critical Care Time Critical Care Time: Yes <Candy Travis APRN - Last Filed: 01/18/25 01:06> Total Critical Care Time: 55 <Candy Travis APRN - Last Filed: 01/18/25 01:06> Discharge Plan Discharge Clinical Impression: Hematochezia, Abdominal pain, lower <Candy Travis APRN - Last Filed: 01/18/25 01:06> Patient Disposition: Still a Patient <Candy Travis APRN - Last Filed: 01/18/25 01:06> Condition: Guarded Prognosis <Candy Travis APRN - Last Filed: 01/18/25 01:06>
[2025-01-17 23:13] LABS: INR 1.2; Partial Thromboplastin Time 29.2 Seconds (22.3-36.8); Prothrombin Time 15.1 Seconds (11.1-14.7)
[2025-01-18] VITALS (32 sets, daily range): BP systolic 101–146; BP diastolic 63–100; PULSE 76–134; RESP 17–41; TEMP 36.4–36.7; O2SAT 95–100; BMI 25.5
[2025-01-18] MEDS: MORPHINE SULFATE (*CRX) 4 MG/ML INJ 2 MG IV PUSH ×3 (01:29→20:23)
[2025-01-18] MEDS: SODIUM CHLORIDE 0.9% IV 1,000 ML 125 ML IV CONT (01:36)
[2025-01-18] MEDS: MAGNESIUM SULF 1 GM/D5W 100 ML 1 GM/100 ML BAG IVPB (02:12)
--- NOTE | 2025-01-18 03:11 | ADMGEN ---
This patient, Edwardo Walsh, was admitted to Medical Room 258-01. Patient/family oriented to hospital policies and general routines including ID bracelet, bed and alarms, visiting hours, pain management, procedures, bathroom and other care routines, personal items, smoking policy, room service/diet, and visiting hours. Information on how to activate the Rapid Response Team has been discussed. Patient/Family are encouraged to report perceived risks to care and to ask questions if they do not understand what they are told or what they should do.
[2025-01-18 03:13] LABS: Hematocrit 35.2 % (42.0-52.0); Hemoglobin 11.5 g/dL (14.0-18.0)
--- NOTE | 2025-01-18 04:21 | PC.NURSE ---
pt transferwed to ICU 4 placed on monitor
[2025-01-18] MEDS: ONDANSETRON INJ 4 MG/2 ML VIAL IV PUSH (06:36)
[2025-01-18 09:41] LABS: Hematocrit 33.8 % (42.0-52.0); Hemoglobin 11.2 g/dL (14.0-18.0)
[2025-01-18] MEDS: SERTRALINE HCL 50 MG TABLET PO (09:55)
[2025-01-18] MEDS: GABAPENTIN 300 MG CAPSULE PO ×2 (09:55→16:58)
[2025-01-18] MEDS: TAMSULOSIN HCL 0.4 MG CAPSULE PO (09:55)
[2025-01-18] MEDS: MAGNESIUM SULF 2 GM/WATER 50ML 2 GM/50 ML BAG IVPB (09:57)
[2025-01-18 10:03] LABS: Anion Gap 5 mmol/L (4-12); Blood Urea Nitrogen 12 mg/dL (9-20); Calcium 8.7 mg/dL (8.4-10.2); Carbon Dioxide 26 mmol/L (22-30); Chloride 103 mmol/L (98-107); Estimated CRCL calculation 102 ml/min; Estimated Glomerular Filt Rate > 60; Glucose 235 mg/dL (65-110); Magnesium 1.8 mg/dL (1.6-2.3); Potassium 4.3 mmol/L (3.4-5.0); Sodium 134 mmol/L (137-145)
[2025-01-18] MEDS: MAGNESIUM CITRATE 300 ML BTL PO (10:12)
--- NOTE | 2025-01-18 11:25 | PM.IMHP ---
H&P: HPI History of Present Illness Date/Time: 01/18/25 11:25 Chief Complaint: GI BLEED; LOW ABD PAIN & RECTAL BLEEDING Narrative: ER-HPI Narrative: Patient is a 69-year-old male who presents to the ER with concerns of rectal bleeding. He reports bleeding started earlier today. Patient reports he has had multiple loose bowel movements today. He endorses lower abdominal pain. Patient reports he is not on blood thinners. He denies any recent fevers, nausea and vomiting, urinary symptoms, or acute back pain. Patient endorses a history of a stroke but is not on blood thinners. He denies any other pertinent medical history. patient with history of CVA has difficulty with speech and it is difficulty to understand, the rectal bleeding started prior to coming to the ER and upon arrival patient hgb was 11.9 however patient did not require any PRBC transfusion, patient c/o left upper and lower quadrant pain, CT of abdomen is not revealing, suspect patient may have diverticulitis and will start patient Levaquin and Flagyl, patient will be seen GI and is schedule to have colonoscopy. once patient is clinically stable, will have PT/OT evaluate the patient. 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 Psychiatric: Psychiatric: Denies behavioral changes [facility] Past Medical History Medical History (Updated 01/18/25 @ 14:30 by Jay Jay Valadez MD) Diabetes mellitus History of stroke Macrocytic anemia Family History Family History (Updated 01/18/25 @ 03:17 by Andrew Shine RN) Father Diabetes mellitus Mother Diabetes mellitus Sibling Diabetes mellitus Social History Social History Years smoked: 50 Smoking status: Current some day smoker Tobacco type: cigarettes Alcohol intake: current Drinks per week: 1 Substance use: never Substance use type: does not use Lack of Transportation: No Lack of Food: Never True Current Housing: I Have Housing Concerned About Future Housing: YES Difficulty Paying Gas/Electric Bills: No Difficulty Paying for Meds: No Currently Unemployed: No Education: High School Diploma/GED Difficulty w/ Childcare or Family Care: No Spiritual care concerns: Yes (wants to see the informatics coordinator) Meds Home Medications and Allergies Home Medications ?Medication ?Instructions ?Recorded ?Confirmed ?Type atorvastatin 20 mg tablet 20 mg PO DAILY 01/17/25 01/18/25 History gabapentin 300 mg capsule 300 mg PO TID 01/17/25 01/18/25 History lisinopril 20 mg tablet 20 mg PO DAILY 01/17/25 01/18/25 History metformin 500 mg tablet mg 01/17/25 History sertraline 50 mg tablet 50 mg PO DAILY 01/17/25 01/18/25 History tamsulosin 0.4 mg capsule 0.4 mg PO DAILY 01/17/25 01/18/25 History Allergies Allergy/AdvReac Type Severity Reaction Status Date / Time Penicillins Allergy Unknown Verified 01/18/25 13:07 Sulfa (Sulfonamide Allergy Unknown Verified 01/18/25 13:07 Antibiotics) Vital Signs Vital Signs - 24 hr 01/17/25 21:46 01/18/25 00:48 01/18/25 00:49 Temperature 36.9 C Pulse Rate 84 107 H 126 H Respiratory Rate 17 41 H 32 H Blood Pressure 116/79 124/100 H Pulse Oximetry 100 Oxygen Delivery Room Air 01/18/25 01:30 01/18/25 01:43 01/18/25 02:33 Temperature Pulse Rate 91 78 78 Respiratory Rate 18 20 Blood Pressure Pulse Oximetry 99 97 Oxygen Delivery Room Air 01/18/25 02:38 01/18/25 02:45 01/18/25 03:00 Temperature 36.7 C Pulse Rate 91 79 94 Respiratory Rate 18 Blood Pressure 127/73 Pulse Oximetry 99 Oxygen Delivery 01/18/25 03:15 01/18/25 03:30 01/18/25 03:45 Temperature Pulse Rate 76 77 89 Respiratory Rate Blood Pressure Pulse Oximetry Oxygen Delivery 01/18/25 04:00 01/18/25 04:00 01/18/25 04:24 Temperature Pulse Rate 77 78 91 Respiratory Rate Blood Pressure Pulse Oximetry Oxygen Delivery 01/18/25 04:24 01/18/25 05:25 01/18/25 05:30 Temperature Pulse Rate 76 85 88 Respiratory Rate 18 19 20 Blood Pressure 145/77 H Pulse Oximetry 97 97 Oxygen Delivery 01/18/25 05:45 01/18/25 06:00 01/18/25 06:15 Temperature Pulse Rate 87 134 H 96 Respiratory Rate 19 32 H 18 Blood Pressure Pulse Oximetry 100 95 Oxygen Delivery 01/18/25 06:30 01/18/25 06:45 01/18/25 06:46 Temperature Pulse Rate 106 H 99 86 Respiratory Rate 33 H 28 H 17 Blood Pressure 110/77 Pulse Oximetry 98 96 Oxygen Delivery 01/18/25 06:48 01/18/25 08:27 Temperature 36.6 C Pulse Rate 84 Respiratory Rate 24 H Blood Pressure 110/77 126/85 Pulse Oximetry 97 Oxygen Delivery Exam Narrative: Patient is comfortable, NAD HEENT: eyes are clear and none icteric LUNGS:CTA HEART: RR S1S2 ABD: BS+, tender in LLQ Lower extremities: no edema SKIN: nonjaundiced Neuro: grossly intact. H&P: Results Labs Labs: Short CBC 01/17/25 01/18/25 01/18/25 Range/Units 22:04 03:09 09:34 WBC 9.2 (4.5-10.0) K/mm3 Hgb 11.9 L 11.5 L 11.2 L (14.0-18.0) g/dL Hct 35.9 L 35.2 L 33.8 L (42.0-52.0) % Plt Count 159 (150-375) k/mm3 BMP 01/17/25 01/17/25 01/18/25 22:04 22:12 09:34 Sodium 136 L 134 L Potassium 3.8 4.3 Chloride 105 103 Carbon Dioxide 25 26 BUN 13 12 Creatinine 0.66 L 0.80 0.59 L Glucose 216 H 235 H Calcium 8.6 8.7 Liver Function 01/17/25 Range/Units 22:04 Total Bilirubin 0.2 (0.2-1.3) mg/dL AST 20 (17-59) U/L ALT 13 (6-50) U/L Alkaline Phosphatase 81 (38-126) U/L Albumin 3.1 L (3.5-5.1) g/dL Assessment and Plan Assessment and plan (1) Diabetes mellitus: Code(s): E11.9 - Type 2 diabetes mellitus without complications Status: Acute (2) Hematochezia: Code(s): K92.1 - Melena Status: Acute (3) Abdominal pain, lower: Code(s): R10.30 - Lower abdominal pain, unspecified Status: Acute (4) Macrocytic anemia: Code(s): D53.9 - Nutritional anemia, unspecified Status: Acute (5) History of stroke: Code(s): Z86.73 - Personal history of transient ischemic attack (TIA), and cerebral infarction without residual deficits Status: Acute Plan patient with history of CVA has difficulty with speech and it is difficulty to understand, the rectal bleeding started prior to coming to the ER and upon arrival patient hgb was 11.9 however patient did not require any PRBC transfusion, patient c/o left upper and lower quadrant pain, CT of abdomen is not revealing, suspect patient may have diverticulitis and will start patient Levaquin and Flagyl, patient will be seen GI and is schedule to have colonoscopy. once patient is clinically stable, will have PT/OT evaluate the patient. Quality VTE Prophylaxis VTE prophylaxis: mechanical ordered Hospitalist MIPS Advance Care Plan I have confirmed that the patient's Advanced Care Plan is present, code status is documented, or surrogate decision maker is listed in patient medical record.: Yes Medication Reconciliation The patient is not eligible for med reconciliation; the patient is in a emergent medical situation where delaying treatment would jeopardize the patients health.: Yes
[2025-01-18] MEDS: LACTATED RINGERS 1,000 ML 150 ML IV CONT (13:18)
--- NOTE | 2025-01-18 13:34 | WPDANESEPPF ---
Anes - Initial Pre Proc Eval Procedure: Operation Date: 01/18/25 15:00 Proposed Procedures p EGD & Diagnostic Colonoscopy - Jay Jay Valadez MD Date/Time: 01/18/25 13:34 Surgeon: Mee Dorman DO Pre Op Diagnosis: rectal bleed Patient Data Age: 69 Gender: M Height: 1.78 m Weight: 80.8 kg Last Vital Signs Temp 36.4 C 01/18/25 13:13 Pulse 84 01/18/25 13:13 Resp 18 01/18/25 13:13 BP 125/83 01/18/25 13:13 Pulse Ox 98 01/18/25 13:13 O2 Del Method Room Air 01/18/25 13:13 Allergies Allergy/AdvReac Type Severity Reaction Status Date / Time Penicillins Allergy Unknown Verified 01/18/25 13:07 Sulfa (Sulfonamide Allergy Unknown Verified 01/18/25 13:07 Antibiotics) Home Medications ?Medication ?Instructions ?Recorded ?Confirmed ?Type atorvastatin 20 mg tablet 20 mg PO DAILY 01/17/25 01/18/25 History gabapentin 300 mg capsule 300 mg PO TID 01/17/25 01/18/25 History lisinopril 20 mg tablet 20 mg PO DAILY 01/17/25 01/18/25 History metformin 500 mg tablet mg 01/17/25 History sertraline 50 mg tablet 50 mg PO DAILY 01/17/25 01/18/25 History tamsulosin 0.4 mg capsule 0.4 mg PO DAILY 01/17/25 01/18/25 History Laboratory Tests 01/17/25 01/17/25 01/17/25 22:04 22:12 22:39 WBC 9.2 K/mm3 (4.5-10.0) RBC 3.38 L M/mm3 (4.6-6.20) Hgb 11.9 L g/dL (14.0-18.0) Hct 35.9 L % (42.0-52.0) MCV 106.2 H fl (80-100) MCH 35.2 H pg (26-34) MCHC 33.1 g/dl (32-36) RDW 12.5 % (11.5-14.5) Plt Count 159 k/mm3 (150-375) MPV 8.8 fl (7.4-10.4) Immature Gran % (Auto) 0.5 % (0-0.5) Neut % (Auto) 65.6 % (45.5-73.1) Lymph % (Auto) 18.2 L % (18.3-44.2) [place] % (Auto) 10.4 H % (2.6-8.5) Eos % (Auto) 4.8 H % (0-4.4) Baso % (Auto) 0.5 % (0.2-1.2) Lymph # (Auto) 1.67 K/mm3 (0.9-3.2) [place] # (Auto) 1.0 H K/mm3 (0.1-0.6) Eos # (Auto) 0.4 H K/mm3 (0-0.3) Baso # (Auto) 0.1 K/mm3 (0.0-0.1) Abs Immat Gran (auto) 0.05 H K/mm3 (0.00-0.031) Absolute Neuts (auto) 6.0 K/mm3 (1.3-6.7) Absolute Nucleated RBC 0.000 K/mm3 (0.0-0.012) Band Neutrophils % Not Reportable Nucleated RBC % 0.0 % (0.0-0.2) Platelet Estimate Adequate (Adequate) Schistocytes None seen PT 15.1 H Seconds (11.1-14.7) INR 1.2 APTT 29.2 Seconds (22.3-36.8) Sodium 136 L mmol/L (137-145) Potassium 3.8 mmol/L (3.4-5.0) Chloride 105 mmol/L (98-107) Carbon Dioxide 25 mmol/L (22-30) Anion Gap 6 mmol/L (4-12) BUN 13 mg/dL (9-20) Creatinine 0.66 L mg/dL 0.80 mg/dL (0.7-1.3) (0.8-1.5) Estim Creat Clear Calc 92 ml/min 77 ml/min Estimated GFR > 60 > 60 (59 - ) (59 - ) Glucose 216 H mg/dL (65-110) POC Capillary Glucose Lactic Acid 1.9 mmol/L (0.7-2.0) Calcium 8.6 mg/dL (8.4-10.2) Magnesium 1.5 L mg/dL (1.6-2.3) Total Bilirubin 0.2 mg/dL (0.2-1.3) AST 20 U/L (17-59) ALT 13 U/L (6-50) Alkaline Phosphatase 81 U/L (38-126) Total Protein 6.5 g/dL (6.3-8.2) Albumin 3.1 L g/dL (3.5-5.1) Lipase 34 U/L (23-300) Blood Type O Negative Antibody Screen Negative 01/18/25 01/18/25 01/18/25 01:22 03:09 06:47 WBC RBC Hgb 11.5 L g/dL (14.0-18.0) Hct 35.2 L % (42.0-52.0) MCV MCH MCHC RDW Plt Count MPV Immature Gran % (Auto) Neut % (Auto) Lymph % (Auto) [place] % (Auto) Eos % (Auto) Baso % (Auto) Lymph # (Auto) [place] # (Auto) Eos # (Auto) Baso # (Auto) Abs Immat Gran (auto) Absolute Neuts (auto) Absolute Nucleated RBC Band Neutrophils % Nucleated RBC % Platelet Estimate Schistocytes PT INR APTT Sodium Potassium Chloride Carbon Dioxide Anion Gap BUN Creatinine Estim Creat Clear Calc Estimated GFR Glucose POC Capillary Glucose 203 H mg/dl 297 H mg/dl (65-105) (65-105) Lactic Acid Calcium Magnesium Total Bilirubin AST ALT Alkaline Phosphatase Total Protein Albumin Lipase Blood Type Antibody Screen 01/18/25 01/18/25 09:34 12:23 WBC RBC Hgb 11.2 L g/dL (14.0-18.0) Hct 33.8 L % (42.0-52.0) MCV MCH MCHC RDW Plt Count MPV Immature Gran % (Auto) Neut % (Auto) Lymph % (Auto) [place] % (Auto) Eos % (Auto) Baso % (Auto) Lymph # (Auto) [place] # (Auto) Eos # (Auto) Baso # (Auto) Abs Immat Gran (auto) Absolute Neuts (auto) Absolute Nucleated RBC Band Neutrophils % Nucleated RBC % Platelet Estimate Schistocytes PT INR APTT Sodium 134 L mmol/L (137-145) Potassium 4.3 mmol/L (3.4-5.0) Chloride 103 mmol/L (98-107) Carbon Dioxide 26 mmol/L (22-30) Anion Gap 5 mmol/L (4-12) BUN 12 mg/dL (9-20) Creatinine 0.59 L mg/dL (0.7-1.3) Estim Creat Clear Calc 102 ml/min Estimated GFR > 60 (59 - ) Glucose 235 H mg/dL (65-110) POC Capillary Glucose 177 H mg/dl (65-105) Lactic Acid Calcium 8.7 mg/dL (8.4-10.2) Magnesium 1.8 mg/dL (1.6-2.3) Total Bilirubin AST ALT Alkaline Phosphatase Total Protein Albumin Lipase Blood Type Antibody Screen Patient hx anesthesia problems: none Family hx anesthesia problems: none Results Review: All pre-operative results and documents have been reviewed as part of the pre-operative evaluation. [facility] Family History Family History (Updated 01/18/25 @ 03:17 by Andrew Shine RN) Father Diabetes mellitus Mother Diabetes mellitus Sibling Diabetes mellitus Social History Social History Years smoked: 50 Smoking status: Current some day smoker Tobacco type: cigarettes Alcohol intake: current Drinks per week: 1 Substance use: never Substance use type: does not use Lack of Transportation: No Lack of Food: Never True Current Housing: I Have Housing Concerned About Future Housing: YES Difficulty Paying Gas/Electric Bills: No Difficulty Paying for Meds: No Currently Unemployed: No Education: High School Diploma/GED Difficulty w/ Childcare or Family Care: No Spiritual care concerns: Yes (wants to see the general supervisor) Anes - Eval Final PreProcedure Day of Procedure 01/18/25 13:34 Patient weight: overweight Heart: regular rate and rhythm Lungs: clear to auscultation Airway: Mallampati scale class II Neurological: alert and oriented Last oral intake: >/= 8 hours ASA classification: IV Emergent: no Anesthetic plan: proceed Anesthesia type and monitoring: general GIVS and standard monitoring Results Review: All pre-operative results and documents have been reviewed as part of the pre-operative evaluation. Informed Consent: The patient's anesthetic plan and its attendant risks and benefits were discussed with the patient/family/POA. Questions were solicited and answers provided to the satisfaction of the patient/family/POA.
--- NOTE | 2025-01-18 13:39 | WPDGICN ---
Assessment and Plan Assessment and plan (1) Hematochezia: Code(s): K92.1 - Melena Status: Acute Assessment and Plan: he received bowel prep overnight, still with maroon stool and signs of recent bleeding will proceed with egd and colonoscopy today more recommendations after scope (2) Abdominal pain, lower: Code(s): R10.30 - Lower abdominal pain, unspecified Status: Acute Assessment and Plan: ct scan reviewed, no colitis (3) Macrocytic anemia: Code(s): D53.9 - Nutritional anemia, unspecified Status: Acute Assessment and Plan: monitor h/h (4) History of stroke: Code(s): Z86.73 - Personal history of transient ischemic attack (TIA), and cerebral infarction without residual deficits Status: Acute Assessment and Plan: denies using blood thinner (5) Diabetes mellitus: Code(s): E11.9 - Type 2 diabetes mellitus without complications Status: Acute GI Consult Note Consult date/time: 01/18/25 13:39 Reason for consult: gib HPI: Edwardo Walsh is a 69 year old male who presents to the ER with new onset of rectal bleeding. He had multiple loose bowel movements along with lower abdominal pain. He denies any nausea and vomiting. Also history of DM, HTN, stroke but is not on blood thinners. Creat 0.6, hb 11, macrocytosis, no recent scopes. 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 Psychiatric: Psychiatric: Denies behavioral changes [facility] Past Medical History Medical History (Updated 01/18/25 @ 14:30 by Jay Jay Valadez MD) Diabetes mellitus History of stroke Macrocytic anemia Family History Family History (Updated 01/18/25 @ 03:17 by Andrew Shine RN) Father Diabetes mellitus Mother Diabetes mellitus Sibling Diabetes mellitus Social History Social History Years smoked: 50 Smoking status: Current some day smoker Tobacco type: cigarettes Alcohol intake: current Drinks per week: 1 Substance use: never Substance use type: does not use Lack of Transportation: No Lack of Food: Never True Current Housing: I Have Housing Concerned About Future Housing: YES Difficulty Paying Gas/Electric Bills: No Difficulty Paying for Meds: No Currently Unemployed: No Education: High School Diploma/GED Difficulty w/ Childcare or Family Care: No Spiritual care concerns: Yes (wants to see the lodge sales associate) Meds Home Medications and Allergies Home Medications ?Medication ?Instructions ?Recorded ?Confirmed ?Type atorvastatin 20 mg tablet 20 mg PO DAILY 01/17/25 01/18/25 History gabapentin 300 mg capsule 300 mg PO TID 01/17/25 01/18/25 History lisinopril 20 mg tablet 20 mg PO DAILY 01/17/25 01/18/25 History metformin 500 mg tablet mg 01/17/25 History sertraline 50 mg tablet 50 mg PO DAILY 01/17/25 01/18/25 History tamsulosin 0.4 mg capsule 0.4 mg PO DAILY 01/17/25 01/18/25 History Allergies Allergy/AdvReac Type Severity Reaction Status Date / Time Penicillins Allergy Unknown Verified 01/18/25 13:07 Sulfa (Sulfonamide Allergy Unknown Verified 01/18/25 13:07 Antibiotics) Vital Signs Vital Signs - 24 hr 01/17/25 21:46 01/18/25 00:48 01/18/25 00:49 Temperature 98.5 F Pulse Rate 84 107 H 126 H Respiratory Rate 17 41 H 32 H Blood Pressure 116/79 124/100 H Pulse Oximetry 100 Oxygen Delivery Room Air 01/18/25 01:30 01/18/25 01:43 01/18/25 02:33 Temperature Pulse Rate 91 78 78 Respiratory Rate 18 20 Blood Pressure Pulse Oximetry 99 97 Oxygen Delivery Room Air 01/18/25 02:38 01/18/25 02:45 01/18/25 03:00 Temperature 98.1 F Pulse Rate 91 79 94 Respiratory Rate 18 Blood Pressure 127/73 Pulse Oximetry 99 Oxygen Delivery 01/18/25 03:15 01/18/25 03:30 01/18/25 03:45 Temperature Pulse Rate 76 77 89 Respiratory Rate Blood Pressure Pulse Oximetry Oxygen Delivery 01/18/25 04:00 01/18/25 04:00 01/18/25 04:24 Temperature Pulse Rate 77 78 91 Respiratory Rate Blood Pressure Pulse Oximetry Oxygen Delivery 01/18/25 04:24 01/18/25 05:25 01/18/25 05:30 Temperature Pulse Rate 76 85 88 Respiratory Rate 18 19 20 Blood Pressure 145/77 H Pulse Oximetry 97 97 Oxygen Delivery 01/18/25 05:45 01/18/25 06:00 01/18/25 06:15 Temperature Pulse Rate 87 134 H 96 Respiratory Rate 19 32 H 18 Blood Pressure Pulse Oximetry 100 95 Oxygen Delivery 01/18/25 06:30 01/18/25 06:45 01/18/25 06:46 Temperature Pulse Rate 106 H 99 86 Respiratory Rate 33 H 28 H 17 Blood Pressure 110/77 Pulse Oximetry 98 96 Oxygen Delivery 01/18/25 06:48 01/18/25 08:00 01/18/25 08:00 Temperature Pulse Rate 76 Respiratory Rate Blood Pressure 110/77 Pulse Oximetry 97 Oxygen Delivery Room Air 01/18/25 08:27 01/18/25 12:00 01/18/25 13:13 Temperature 97.9 F 97.6 F Pulse Rate 84 91 84 Respiratory Rate 24 H 18 Blood Pressure 126/85 125/83 Pulse Oximetry 97 98 Oxygen Delivery Room Air Exam Narrative: GENERAL: Well appearing, well-nourished, in mild distress. HEAD: Normocephalic, atraumatic. NECK: Supple. No adenopathy, no masses. RESPIRATORY: Airway patent, respirations nonlabored. Clear to auscultation bilaterally, no rales, rhonchi, wheezing. CARDIOVASCULAR: Regular rate and rhythm without murmurs, rubs, or gallops. ABDOMINAL: Soft, tender bilateral lower extremities, nondistended. Normoactive BS. MUSCULOSKELETAL: Moves all extremities. SKIN: Warm, dry, normal color. No rashes. NEURO: A&O X3. Speech clear. Some weakness Rt arm (chronic) PSYCHIATRIC: Appropriate mood and affect. Normal interaction. Results Labs 01/18/25 09:34 01/18/25 09:34 Labs: Short CBC 01/17/25 01/18/25 01/18/25 Range/Units 22:04 03:09 09:34 WBC 9.2 (4.5-10.0) K/mm3 Hgb 11.9 L 11.5 L 11.2 L (14.0-18.0) g/dL Hct 35.9 L 35.2 L 33.8 L (42.0-52.0) % Plt Count 159 (150-375) k/mm3 BMP 01/17/25 01/17/25 01/18/25 22:04 22:12 09:34 Sodium 136 L 134 L Potassium 3.8 4.3 Chloride 105 103 Carbon Dioxide 25 26 BUN 13 12 Creatinine 0.66 L 0.80 0.59 L Glucose 216 H 235 H Calcium 8.6 8.7 Liver Function 01/17/25 Range/Units 22:04 Total Bilirubin 0.2 (0.2-1.3) mg/dL AST 20 (17-59) U/L ALT 13 (6-50) U/L Alkaline Phosphatase 81 (38-126) U/L Albumin 3.1 L (3.5-5.1) g/dL
--- NOTE | 2025-01-18 13:42 | SUR.OPER ---
EGD:[id number] Colon:[id number]
--- NOTE | 2025-01-18 14:17 | S_PTH ---
PATIENT: Edwardo Walsh LOC: ANHICU U#:[id number] AGE/SX: 69/M ROOM: ICU RE01/18/[address]: Denys Brito MD : 1955 BED: 4 DIS: 01/21/2025 SPEC #: [id number] RECD: 01/19/25 07:18 STATUS: ZACH RERob #: [id number] KILLIAN: 01/18/25 14:[address]: Jay Jay Valadez DEPT: [facility] Surgical RECD BY: Shabana Richardson ENTERED: 01/19/25 07:18 SP TYPE: Surgical OTHR DR: Mee Dorman, DO UNKNOWN,DOCTOR Tissues: A - Colon Polypectomy Procedures: Hematoxylin and Eosin Stain Gross and Microscopic Level 4
[2025-01-18] MEDS: metroNIDAZOLE 500 MG/ISO 100ML 500 MG/100 ML BAG 100 MG IVPB ×2 (15:13→21:45)
[2025-01-18] MEDS: levoFLOXacin 750 MG/D5W 150 ML 750 MG/150 ML BAG 100 MG IVPB (16:07)
[2025-01-18 16:57] LABS: Hematocrit 32.6 % (42.0-52.0); Hemoglobin 10.8 g/dL (14.0-18.0)
[2025-01-18 21:36] LABS: Hematocrit 31.8 % (42.0-52.0); Hemoglobin 10.5 g/dL (14.0-18.0)
[2025-01-19 03:27] LABS: Hematocrit 31.6 % (42.0-52.0); Hemoglobin 10.6 g/dL (14.0-18.0); Mean Corpuscular HGB Conc 33.5 g/dl (32-36); Mean Corpuscular Hemoglobin 35.6 pg (26-34); Mean Corpuscular Volume 106.0 fl (80-100); Platelet Count Result 157 k/mm3 (150-375); Red Blood Count 2.98 M/mm3 (4.6-6.20); White Blood Count 9.7 K/mm3 (4.5-10.0)
[2025-01-19 03:38] LABS: Anion Gap 4 mmol/L (4-12); Blood Urea Nitrogen 13 mg/dL (9-20); Calcium 8.5 mg/dL (8.4-10.2); Carbon Dioxide 28 mmol/L (22-30); Chloride 103 mmol/L (98-107); Estimated CRCL calculation 76 ml/min; Estimated Glomerular Filt Rate > 60; Glucose 169 mg/dL (65-110); Magnesium 1.8 mg/dL (1.6-2.3); Potassium 4.2 mmol/L (3.4-5.0); Sodium 135 mmol/L (137-145)
[2025-01-19] MEDS: MORPHINE SULFATE (*CRX) 4 MG/ML INJ 2 MG IV PUSH ×2 (05:11→20:23)
[2025-01-19] MEDS: metroNIDAZOLE 500 MG/ISO 100ML 500 MG/100 ML BAG 100 MG IVPB (05:11)
[2025-01-19 05:26] VITALS: BP 131/73; PULSE 100; RESP 18; TEMP 36.6; O2SAT 94
[2025-01-19] MEDS: SERTRALINE HCL 50 MG TABLET PO (08:44)
[2025-01-19] MEDS: GABAPENTIN 300 MG CAPSULE PO ×3 (08:44→20:23)
[2025-01-19] MEDS: TAMSULOSIN HCL 0.4 MG CAPSULE PO (08:44)
--- NOTE | 2025-01-19 09:41 | PM.IMPN ---
Progress Note: A&P Assessment and Plan (1) Hematochezia: Code(s): K92.1 - Melena Status: Acute Assessment and Plan: 01/17/2025: Patient admitted with concerns of rectal bleeding. He reports bleeding started earlier today. Patient reports he has had multiple loose bowel movements today. He endorses lower abdominal pain. Patient reports he is not on blood thinners. He denies any recent fevers, nausea and vomiting, urinary symptoms, or acute back pain. Patient endorses a history of a stroke but is not on blood thinners. He denies any other pertinent medical history. 01/18/2025: EGD: Normal EGD 01/18/2025: Colonoscopy: Few diverticula were present in the left colon. Noted maroon liquid stool throughout colon, wonder if source of recent GI bleed could have been a diverticular source. 3 mm polyp in the transverse colon, a cold snare polypectomy was performed and polyp was completely excised. Moderate amount of dried blood was seen throughout the colon. Few small size internal hemorrhoids were seen the rectum the hemorrhoids were not actively bleeding -hemoglobin, platelet count have been stable since admission, has not required any transfusion of blood products -BUN remains normal -patient did have some dark maroon stools overnight which could be residual -hemodynamically stable -GI following the patient -continue to monitor (2) Abdominal pain, lower: Code(s): R10.30 - Lower abdominal pain, unspecified Status: Acute Assessment and Plan: Patient was started on levofloxacin and Flagyl for suspicion of diverticulitis,, continue antibiotics -01/17: CT scan without contrast: No contrast blush to suggest acute bleed, no hemodynamically significant stenosis, small hiatal hernia, nonspecific thickening of the bladder wall. (3) Suicidal behavior: Code(s): R45.89 - Other symptoms and signs involving emotional state Status: Acute Assessment and Plan: According to the [place] suicide severity rating Scale patient had thoughts of harming himself with a knife which starts of slashing his wrist which apparently has done in the past -discussed with patient this morning regarding its suicidal ideation/behavior any stated he had started of this life and was it to end. . Does have a proper place to live -seems to be depressed -will definitely benefit from psych unit with they can treat him with meds before sending him back home -patient is on sertraline at home -patient is medically stable for crisis management and care coordination to evaluate the patient (4) Diabetes mellitus: Code(s): E11.9 - Type 2 diabetes mellitus without complications Status: Acute Assessment and Plan: Patient takes metformin at home -once he starts p.o. diet will start metformin (5) Macrocytic anemia: Code(s): D53.9 - Nutritional anemia, unspecified Status: Acute Assessment and Plan: Check folic acid and B12 -states he has 1 drink per week (6) History of stroke: Code(s): Z86.73 - Personal history of transient ischemic attack (TIA), and cerebral infarction without residual deficits Status: Acute Assessment and Plan: Patient has a history of stroke, will restart atorvastatin Plan will have PT/OT evaluate the patient. Subjective Date/time seen: 01/19/25 09:41 Interval history: 01/17/2025: Patient admitted with concerns of rectal bleeding. He reports bleeding started earlier today. Patient reports he has had multiple loose bowel movements today. He endorses lower abdominal pain. Patient reports he is not on blood thinners. He denies any recent fevers, nausea and vomiting, urinary symptoms, or acute back pain. Patient endorses a history of a stroke but is not on blood thinners. He denies any other pertinent medical history. 01/18/2025: EGD: Normal EGD 01/18/2025: Colonoscopy: Few diverticula were present in the left colon. Noted maroon liquid stool throughout colon, wonder if source of recent GI bleed could have been a diverticular source. 3 mm polyp in the transverse colon, a cold snare polypectomy was performed and polyp was completely excised. Moderate amount of dried blood was seen throughout the colon. Few small size internal hemorrhoids were seen the rectum the hemorrhoids were not actively bleeding 01/19/2025 patient being seen for the hospitalist team Patient is awake, alert, oriented, complains of left lower quadrant abdominal pain. Denies any nausea, vomiting, shortness of breath, chest pain. He states he wants to end his life because he is tired of living like this. He does not have a proper place to live. Patient seems to be more depressed. Continues to have dark maroon stools,. Hemoglobin is stable, patient is hemodynamically stable, platelet counts are within normal limits. BUN is not elevated Review of Systems Review of Systems: All systems reviewed & are unremarkable except as noted in HPI and below Exam Narrative: General: Patient is comfortable, NAD HEENT: Sclera is clear, not icteric LUNGS: Clear to auscultation bilaterally, decreased at bases, adequate air entry, no wheeze HEART: Regular rate and rhythm, S1-S2 is normal ABD: Soft, non distended, tenderness in left lower quadrant normoactive bowel sounds Lower extremities: no edema, cyanosis or clubbing SKIN: No lesions noted Neuro: Patient is awake, alert, answers to questions appropriately, follows simple commands in all extremities PSYCH: Flat and depressed affect. Neuro: Cranial nerves: Yes Normal hearing present Objective Data Vital Signs Vital Signs: Vital Signs - 24 hr 01/18/25 12:00 01/18/25 13:13 01/18/25 14:23 Temperature 97.6 F Pulse Rate 91 84 102 H Respiratory Rate 18 28 H Blood Pressure 125/83 101/63 Pulse Oximetry 98 99 Oxygen Delivery Room Air Room Air 01/18/25 14:33 01/18/25 14:43 01/18/25 15:04 Temperature 98.0 F Pulse Rate 87 96 87 Respiratory Rate 19 19 21 H Blood Pressure 125/82 127/77 134/78 Pulse Oximetry 98 97 100 Oxygen Delivery Room Air Room Air 01/18/25 20:00 01/18/25 21:21 01/19/25 05:26 Temperature 98 F 98 F Pulse Rate 94 100 Respiratory Rate 20 18 Blood Pressure 146/77 H 131/73 Pulse Oximetry 97 98 94 Oxygen Delivery Room Air Intake/Output Intake/Output: Intake & Output 01/16/25 01/17/25 01/18/25 01/19/25 23:59 23:59 23:59 23:59 Intake Total 1000 1540 340 Output Total 650 600 Balance 1000 890 -260 Meds/Results Medications: Active Medications Generic Name Dose Route Start Last Admin Trade Name Freq PRN Reason Stop Dose Admin Gabapentin 300 mg 01/18/25 09:00 01/19/25 08:44 Gabapentin 300 Mg Capsule PO 300 mg TID SUSAN Administration Levofloxacin/Dextrose 750 mg in 150 mls @ 100 mls/hr 01/18/25 12:00 01/18/25 17:48 Levaquin 750 Mg/D5w 150 Ml IVPB Infused Q24H SUSAN Infusion Metronidazole 500 mg in 100 mls @ 100 mls/hr 01/18/25 14:00 01/19/25 06:35 Flagyl 500 Mg/Iso Soln 100 Ml IVPB Infused Q8H SUSAN Infusion Morphine Sulfate 2 mg 01/18/25 00:06 01/19/25 05:11 Morphine Sulfate (*Crx) 4 Mg/Ml Inj IV PUSH 2 mg Q2H PRN Administration Pain Rated 7-10 Ondansetron HCl 4 mg 01/18/25 00:02 01/18/25 06:36 Ondansetron Inj 4 Mg/2 Ml Vial IV PUSH 4 mg Q4H PRN Administration Nausea Sertraline HCl 50 mg 01/18/25 09:00 01/19/25 08:44 Sertraline Hcl 50 Mg Tablet PO 50 mg DAILY SUSAN Administration Tamsulosin HCl 0.4 mg 01/18/25 09:00 01/19/25 08:44 Tamsulosin Hcl 0.4 Mg Capsule PO 0.4 mg DAILY SUSAN Administration Radiology Results: ITS Impressions Abdomen/Pelvis CTA 01/17/25 22:38 IMPRESSION: No contrast blush is seen to suggest acute bleed. No hemodynamically significant stenosis. Small hiatal hernia is noted. Nonspecific thickening of the bladder wall. All CT scans at this facility are performed using low dose modulation techniques as appropriate to perform exam including the following: automated exposure control; use of iterative reconstruction technique; adjustment of the mA and/or kV according to patient size (this includes techniques or standardized protocols for targeted exams where dose is matched to indication/reason for exam). Labs Labs: Laboratory Results - last 24 hr 01/18/25 01/18/25 01/18/25 09:34 12:23 16:47 WBC RBC Hgb 11.2 L 10.8 L Hct 33.8 L 32.6 L MCV MCH MCHC RDW Plt Count MPV Sodium 134 L Potassium 4.3 Chloride 103 Carbon Dioxide 26 Anion Gap 5 BUN 12 Creatinine 0.59 L Estim Creat Clear Calc 102 Estimated GFR > 60 Glucose 235 H POC Capillary Glucose 177 H Calcium 8.7 Magnesium 1.8 01/18/25 01/18/25 01/19/25 20:29 21:32 03:17 WBC 9.7 RBC 2.98 L Hgb 10.5 L 10.6 L Hct 31.8 L 31.6 L MCV 106.0 H MCH 35.6 H MCHC 33.5 RDW 12.3 Plt Count 157 MPV 8.9 Sodium 135 L Potassium 4.2 Chloride 103 Carbon Dioxide 28 Anion Gap 4 BUN 13 Creatinine 0.81 Estim Creat Clear Calc 76 Estimated GFR > 60 Glucose 169 H POC Capillary Glucose 219 H Calcium 8.5 Magnesium 1.8 01/19/25 08:39 WBC RBC Hgb Hct MCV MCH MCHC RDW Plt Count MPV Sodium Potassium Chloride Carbon Dioxide Anion Gap BUN Creatinine Estim Creat Clear Calc Estimated GFR Glucose POC Capillary Glucose 225 H Calcium Magnesium Quality VTE Prophylaxis VTE prophylaxis: mechanical ordered
--- NOTE | 2025-01-19 11:02 | PCFNICU ---
ICU Rounding Note: Pt current nutrition is Low Fiber. Last recorded weight is 81.2 kg, up from 80.8 kg on admit. Bowel Motility: Last reported BM 01/19 Labs Reviewed: Glu 169, Na 135, Alb 3.1 Meds Noted: NovoLog, Lipitor Skin: WNL Additional Notes:Patient diet order advanced to low fiber diet. Intake > 75% of meals. Agree with diet orders. Following daily in ICU rounds.
[2025-01-19 13:10] LABS: Influenza A QL RT-PCR Negative (Negative); Influenza B QL RT-PCR Negative (Negative); RSV RNA, RT-PCR Negative (Negative); SARS-CoV-2 RNA PCR Negative (Negative)
[2025-01-19 13:15] LABS: Cannabinoid Screen Urine Negative (Negative)
[2025-01-19 13:41] VITALS: BP 127/80; PULSE 96; RESP 15; TEMP 36.9; O2SAT 96
[2025-01-19 15:15] LABS: Add Urine Microscopic? NO; Appearance Urine Clear (Clear); Glucose Urine UA Trace mg/dL (Negative); Leukocyte Esterase Ur Negative LEU/UL (Negative); Nitrate Urine Negative (Negative); Specific Grav Ur 1.017 (1.001-1.035)
--- NOTE | 2025-01-19 15:56 | ECG_ITS ---
Test Date: 2025-01-19 16:06:46 Measurements Intervals [place] Rate: 81 P: 35 CO: 183 QRS: -7 QRSD: 86 T: 33 QT: 360 QTc: 419 Interpretive Statements SINUS RHYTHM NORMAL ECG No previous ECG available for comparison Electronically Signed On 01-19-2025 17:13:51 CDT by James Valle D.O.
--- NOTE | 2025-01-19 16:51 | WPDGIPROGNO ---
Progress Note: A&P Assessment and Plan (1) Hematochezia: Code(s): K92.1 - Melena Status: Acute Assessment and Plan: scope showed maroon stool with no more active bleeding, source probably was diverticula h/h stable he should be able to be moved to psych facility (he is on Suicidal precaution) (2) Abdominal pain, lower: Code(s): R10.30 - Lower abdominal pain, unspecified Status: Acute (3) Diverticulosis: Code(s): K57.90 - Diverticulosis of intestine, part unspecified, without perforation or abscess without bleeding Status: Acute (4) History of stroke: Code(s): Z86.73 - Personal history of transient ischemic attack (TIA), and cerebral infarction without residual deficits Status: Acute (5) Macrocytic anemia: Code(s): D53.9 - Nutritional anemia, unspecified Status: Acute Subjective Date/time seen: 01/19/25 16:51 Interval history: colonoscopy with evidence of recent bleeding, probably diverticula related had one BM with old blood he is comfortable sitter at bedside Review of Systems Review of Systems: All systems reviewed & are unremarkable except as noted in HPI and below Exam Narrative: General: Patient is comfortable, NAD HEENT: Sclera is clear, not icteric LUNGS: Clear to auscultation bilaterally, decreased at bases, adequate air entry, no wheeze HEART: Regular rate and rhythm, S1-S2 is normal ABD: Soft, non distended, tenderness in left lower quadrant normoactive bowel sounds Lower extremities: no edema, cyanosis or clubbing SKIN: No lesions noted Neuro: Patient is awake, alert, answers to questions appropriately, follows simple commands in all extremities PSYCH: Flat and depressed affect. Objective Data Vital Signs Vital Signs: Vital Signs - 24 hr 01/18/25 20:00 01/18/25 21:21 01/19/25 05:26 Temperature 98 F 98 F Pulse Rate 94 100 Respiratory Rate 20 18 Blood Pressure 146/77 H 131/73 Pulse Oximetry 97 98 94 Oxygen Delivery Room Air 01/19/25 13:41 Temperature 98.5 F Pulse Rate 96 Respiratory Rate 15 Blood Pressure 127/80 Pulse Oximetry 96 Oxygen Delivery Intake/Output Intake/Output: Intake & Output 01/16/25 01/17/25 01/18/25 01/19/25 23:59 23:59 23:59 23:59 Intake Total 1000 1540 890 Output Total 650 600 Balance 1000 890 290 Meds/Results Medications: Active Medications Generic Name Dose Route Start Last Admin Trade Name Freq PRN Reason Stop Dose Admin Atorvastatin Calcium 20 mg 01/20/25 09:00 Atorvastatin 20 Mg Tablet PO DAILY SUSAN Dextrose 12.5 gm 01/19/25 10:00 Dextrose 50% 25 Gm/50 Ml Syringe IV PUSH PRN PRN Hypoglycemia Protocol Gabapentin 300 mg 01/19/25 14:00 01/19/25 13:40 Gabapentin 300 Mg Capsule PO 300 mg Q8HR SUSAN Administration Glucagon 1 mg 01/19/25 10:00 Glucagon For Inj 1 Mg Vial IM PRN PRN Hypoglycemia Protocol Glucose 15 gm 01/19/25 10:00 Glucose Oral Gel 15 Gm Of Glucse In 37.5 Gm Tube PO PRN PRN Hypoglycemia Protocol Dextrose 1,000 mls @ 100 mls/hr 01/19/25 10:00 Dextrose 5% 1,000 Ml IVPB PRN PRN Hypoglycemia Protocol Insulin Aspart 1 - 2 units 01/19/25 21:00 Insulin Aspart (*Bkc) 100 Units/Ml SUB-Q HS [facility] Protocol Insulin Aspart 2 - 5 units 01/19/25 12:00 01/19/25 15:47 Insulin Aspart (*Bkc) 100 Units/Ml SUB-Q Not Given TIDWM [facility] Protocol Morphine Sulfate 2 mg 01/18/25 00:06 01/19/25 05:11 Morphine Sulfate (*Crx) 4 Mg/Ml Inj IV PUSH 2 mg Q2H PRN Administration Pain Rated 7-10 Ondansetron HCl 4 mg 01/18/25 00:02 01/18/25 06:36 Ondansetron Inj 4 Mg/2 Ml Vial IV PUSH 4 mg Q4H PRN Administration Nausea Sertraline HCl 50 mg 01/18/25 09:00 01/19/25 08:44 Sertraline Hcl 50 Mg Tablet PO 50 mg DAILY SUSAN Administration Tamsulosin HCl 0.4 mg 01/18/25 09:00 01/19/25 08:44 Tamsulosin Hcl 0.4 Mg Capsule PO 0.4 mg DAILY SUSAN Administration Radiology Results: ITS Impressions Abdomen/Pelvis CTA 01/17/25 22:38 IMPRESSION: No contrast blush is seen to suggest acute bleed. No hemodynamically significant stenosis. Small hiatal hernia is noted. Nonspecific thickening of the bladder wall. All CT scans at this facility are performed using low dose modulation techniques as appropriate to perform exam including the following: automated exposure control; use of iterative reconstruction technique; adjustment of the mA and/or kV according to patient size (this includes techniques or standardized protocols for targeted exams where dose is matched to indication/reason for exam). Labs Labs: Laboratory Results - last 24 hr 01/18/25 01/18/25 01/18/25 16:47 20:29 21:32 WBC RBC Hgb 10.8 L 10.5 L Hct 32.6 L 31.8 L MCV MCH MCHC RDW Plt Count MPV Sodium Potassium Chloride Carbon Dioxide Anion Gap BUN Creatinine Estim Creat Clear Calc Estimated GFR Glucose POC Capillary Glucose 219 H Calcium Magnesium Urine Color Urine Appearance Urine pH Ur Specific [place] Urine Protein Urine Glucose (UA) Urine Ketones Ur Blood (Man) Urine Nitrate Urine Bilirubin Urine Urobilinogen Ur Leukocyte Esterase Urine Opiates Screen Urine Methadone Screen Ur Barbiturates Screen Ur Phencyclidine Scrn Ur Amphetamine Screen U Benzodiazepines Scrn Urine Cocaine Screen U Cannabinoids Screen Ethyl Alcohol Influenza A (RT-PCR) Influenza B (RT-PCR) RSV (RT-PCR) SARS-CoV-2 RNA (RT-PCR) 01/19/25 01/19/25 01/19/25 03:17 08:39 12:03 WBC 9.7 RBC 2.98 L Hgb 10.6 L Hct 31.6 L MCV 106.0 H MCH 35.6 H MCHC 33.5 RDW 12.3 Plt Count 157 MPV 8.9 Sodium 135 L Potassium 4.2 Chloride 103 Carbon Dioxide 28 Anion Gap 4 BUN 13 Creatinine 0.81 Estim Creat Clear Calc 76 Estimated GFR > 60 Glucose 169 H POC Capillary Glucose 225 H Calcium 8.5 Magnesium 1.8 Urine Color Urine Appearance Urine pH Ur Specific [place] Urine Protein Urine Glucose (UA) Urine Ketones Ur Blood (Man) Urine Nitrate Urine Bilirubin Urine Urobilinogen Ur Leukocyte Esterase Urine Opiates Screen Urine Methadone Screen Ur Barbiturates Screen Ur Phencyclidine Scrn Ur Amphetamine Screen U Benzodiazepines Scrn Urine Cocaine Screen U Cannabinoids Screen Ethyl Alcohol < 10 Influenza A (RT-PCR) Negative Influenza B (RT-PCR) Negative RSV (RT-PCR) Negative SARS-CoV-2 RNA (RT-PCR) Negative 1001/19/25 01/19/25 12:06 12:37 15:23 WBC RBC Hgb Hct MCV MCH MCHC RDW Plt Count MPV Sodium Potassium Chloride Carbon Dioxide Anion Gap BUN Creatinine Estim Creat Clear Calc Estimated GFR Glucose POC Capillary Glucose 199 H 168 H Calcium Magnesium Urine Color Yellow Urine Appearance Clear Urine pH 5.5 Ur Specific [place] 1.017 Urine Protein Negative Urine Glucose (UA) Trace H Urine Ketones Negative Ur Blood (Man) Negative Urine Nitrate Negative Urine Bilirubin Negative Urine Urobilinogen 0.2 Ur Leukocyte Esterase Negative Urine Opiates Screen Positive A Urine Methadone Screen Negative Ur Barbiturates Screen Negative Ur Phencyclidine Scrn Negative Ur Amphetamine Screen Negative U Benzodiazepines Scrn Negative Urine Cocaine Screen Positive A U Cannabinoids Screen Negative Ethyl Alcohol Influenza A (RT-PCR) Influenza B (RT-PCR) RSV (RT-PCR) SARS-CoV-2 RNA (RT-PCR)
[2025-01-19 17:10] LABS: Acetaminophen < 10 ug/mL (10-30)
[2025-01-19 17:33] LABS: Thyroid Stimulating Hormone 0.954 uIU/mL (0.465-4.680)
[2025-01-19] MEDS: INSULIN ASPART (*BKC) 100 UNITS/ML SUB-Q (20:24)
[2025-01-19 21:22] LABS: Vitamin B12 267.0 pg/mL (239-931)
[2025-01-19 22:00] VITALS: BP 125/81; PULSE 75; RESP 18; TEMP 36.8; O2SAT 94
[2025-01-20 04:23] LABS: Hematocrit 30.9 % (42.0-52.0); Hemoglobin 10.3 g/dL (14.0-18.0); Immature Granulocyte Percent A 0.6 % (0-0.5); Lymphocytes Absolute Auto 2.74 K/mm3 (0.9-3.2); Mean Corpuscular HGB Conc 33.3 g/dl (32-36); Mean Corpuscular Hemoglobin 35.4 pg (26-34); Mean Corpuscular Volume 106.2 fl (80-100); Nucleated Red Blood Cells Absolute Auto 0.000 K/mm3 (0.0-0.012); Nucleated Red Blood Cells Perc 0.0 % (0.0-0.2); Platelet Count Result 168 k/mm3 (150-375); Red Blood Count 2.91 M/mm3 (4.6-6.20); White Blood Count 6.8 K/mm3 (4.5-10.0)
[2025-01-20 04:54] LABS: Anion Gap 3 mmol/L (4-12); Blood Urea Nitrogen 18 mg/dL (9-20); Calcium 8.8 mg/dL (8.4-10.2); Carbon Dioxide 30 mmol/L (22-30); Chloride 101 mmol/L (98-107); Estimated CRCL calculation 79 ml/min; Estimated Glomerular Filt Rate > 60; Glucose 155 mg/dL (65-110); Magnesium 1.8 mg/dL (1.6-2.3); Potassium 4.2 mmol/L (3.4-5.0); Sodium 134 mmol/L (137-145)
[2025-01-20] MEDS: MORPHINE SULFATE (*CRX) 4 MG/ML INJ 2 MG IV PUSH ×3 (05:08→19:29)
[2025-01-20] MEDS: GABAPENTIN 300 MG CAPSULE PO ×3 (05:08→21:10)
[2025-01-20 06:00] VITALS: BP 139/86; PULSE 80; RESP 20; TEMP 36.9; O2SAT 99
--- NOTE | 2025-01-20 07:15 | WPDGIPROGNO ---
Progress Note: A&P Assessment and Plan (1) Hematochezia: Code(s): K92.1 - Melena Status: Acute Assessment and Plan: scope showed maroon stool with no more active bleeding, source probably was diverticula h/h stable he should be able to be moved to psych facility (he is on Suicidal precaution) will follow only as needed (2) Diverticulosis: Code(s): K57.90 - Diverticulosis of intestine, part unspecified, without perforation or abscess without bleeding Status: Acute (3) History of stroke: Code(s): Z86.73 - Personal history of transient ischemic attack (TIA), and cerebral infarction without residual deficits Status: Acute (4) Macrocytic anemia: Code(s): D53.9 - Nutritional anemia, unspecified Status: Acute (5) Suicidal behavior: Code(s): R45.89 - Other symptoms and signs involving emotional state Status: Acute Assessment and Plan: sitter at bedside Subjective Date/time seen: 01/20/25 07:15 Interval history: no changes Review of Systems Review of Systems: All systems reviewed & are unremarkable except as noted in HPI and below Exam Narrative: General: Patient is comfortable, NAD HEENT: Sclera is clear, not icteric LUNGS: Clear to auscultation bilaterally, decreased at bases, adequate air entry, no wheeze HEART: Regular rate and rhythm, S1-S2 is normal ABD: Soft, non distended, tenderness in left lower quadrant normoactive bowel sounds Lower extremities: no edema, cyanosis or clubbing SKIN: No lesions noted Neuro: Patient is awake, alert, answers to questions appropriately, follows simple commands in all extremities PSYCH: Flat and depressed affect. Objective Data Vital Signs Vital Signs: Vital Signs - 24 hr 01/19/25 13:41 01/19/25 20:00 01/19/25 22:00 Temperature 98.5 F 98.3 F Pulse Rate 96 75 Respiratory Rate 15 18 Blood Pressure 127/80 125/81 Pulse Oximetry 96 94 Oxygen Delivery Room Air 01/20/25 06:00 Temperature 98.5 F Pulse Rate 80 Respiratory Rate 20 Blood Pressure 139/86 Pulse Oximetry 99 Oxygen Delivery Intake/Output Intake/Output: Intake & Output 01/17/25 01/18/25 01/19/25 01/20/25 23:59 23:59 23:59 23:59 Intake Total 1000 1540 1140 500 Output Total 650 1300 1500 Balance 1000 890 -160 -1000 Meds/Results Medications: Active Medications Generic Name Dose Route Start Last Admin Trade Name Freq PRN Reason Stop Dose Admin Atorvastatin Calcium 20 mg 01/20/25 09:00 Atorvastatin 20 Mg Tablet PO DAILY SUSAN Dextrose 12.5 gm 01/19/25 10:00 Dextrose 50% 25 Gm/50 Ml Syringe IV PUSH PRN PRN Hypoglycemia Protocol Gabapentin 300 mg 01/19/25 14:00 01/20/25 05:08 Gabapentin 300 Mg Capsule PO 300 mg Q8HR SUSAN Administration Glucagon 1 mg 01/19/25 10:00 Glucagon For Inj 1 Mg Vial IM PRN PRN Hypoglycemia Protocol Glucose 15 gm 01/19/25 10:00 Glucose Oral Gel 15 Gm Of Glucse In 37.5 Gm Tube PO PRN PRN Hypoglycemia Protocol Dextrose 1,000 mls @ 100 mls/hr 01/19/25 10:00 Dextrose 5% 1,000 Ml IVPB PRN PRN Hypoglycemia Protocol Insulin Aspart 1 - 2 units 01/19/25 21:00 01/19/25 20:24 Insulin Aspart (*Bkc) 100 Units/Ml SUB-Q 1 units HS SUSAN Administration Protocol Insulin Aspart 2 - 5 units 01/19/25 12:00 01/19/25 15:47 Insulin Aspart (*Bkc) 100 Units/Ml SUB-Q Not Given TIDWM [facility] Protocol Morphine Sulfate 2 mg 01/18/25 00:06 01/20/25 05:08 Morphine Sulfate (*Crx) 4 Mg/Ml Inj IV PUSH 2 mg Q2H PRN Administration Pain Rated 7-10 Ondansetron HCl 4 mg 01/18/25 00:02 01/18/25 06:36 Ondansetron Inj 4 Mg/2 Ml Vial IV PUSH 4 mg Q4H PRN Administration Nausea Sertraline HCl 50 mg 01/18/25 09:00 01/19/25 08:44 Sertraline Hcl 50 Mg Tablet PO 50 mg DAILY SUSAN Administration Tamsulosin HCl 0.4 mg 01/18/25 09:00 01/19/25 08:44 Tamsulosin Hcl 0.4 Mg Capsule PO 0.4 mg DAILY SUSAN Administration Radiology Results: ITS Impressions Abdomen/Pelvis CTA 01/17/25 22:38 IMPRESSION: No contrast blush is seen to suggest acute bleed. No hemodynamically significant stenosis. Small hiatal hernia is noted. Nonspecific thickening of the bladder wall. All CT scans at this facility are performed using low dose modulation techniques as appropriate to perform exam including the following: automated exposure control; use of iterative reconstruction technique; adjustment of the mA and/or kV according to patient size (this includes techniques or standardized protocols for targeted exams where dose is matched to indication/reason for exam). Labs Labs: Laboratory Results - last 24 hr 01/19/25 01/19/25 01/19/25 03:14 03:17 08:39 WBC RBC Hgb Hct MCV MCH MCHC RDW Plt Count MPV Immature Gran % (Auto) Neut % (Auto) Lymph % (Auto) [place] % (Auto) Eos % (Auto) Baso % (Auto) Lymph # (Auto) [place] # (Auto) Eos # (Auto) Baso # (Auto) Abs Immat Gran (auto) Absolute Neuts (auto) Absolute Nucleated RBC Nucleated RBC % Sodium Potassium Chloride Carbon Dioxide Anion Gap BUN Creatinine Estim Creat Clear Calc Estimated GFR Glucose POC Capillary Glucose 225 H Calcium Magnesium Vitamin B12 267.0 Folate 4.8 TSH 0.954 Urine Color Urine Appearance Urine pH Ur Specific [place] Urine Protein Urine Glucose (UA) Urine Ketones Ur Blood (Man) Urine Nitrate Urine Bilirubin Urine Urobilinogen Ur Leukocyte Esterase Urine Opiates Screen Urine Methadone Screen Acetaminophen < 10 L Ur Barbiturates Screen Ur Phencyclidine Scrn Ur Amphetamine Screen U Benzodiazepines Scrn Urine Cocaine Screen U Cannabinoids Screen Ethyl Alcohol Influenza A (RT-PCR) Influenza B (RT-PCR) RSV (RT-PCR) SARS-CoV-2 RNA (RT-PCR) 01/19/25 01/19/25 01/19/25 12:03 12:06 12:37 WBC RBC Hgb Hct MCV MCH MCHC RDW Plt Count MPV Immature Gran % (Auto) Neut % (Auto) Lymph % (Auto) [place] % (Auto) Eos % (Auto) Baso % (Auto) Lymph # (Auto) [place] # (Auto) Eos # (Auto) Baso # (Auto) Abs Immat Gran (auto) Absolute Neuts (auto) Absolute Nucleated RBC Nucleated RBC % Sodium Potassium Chloride Carbon Dioxide Anion Gap BUN Creatinine Estim Creat Clear Calc Estimated GFR Glucose POC Capillary Glucose 199 H Calcium Magnesium Vitamin B12 Folate TSH Urine Color Yellow Urine Appearance Clear Urine pH 5.5 Ur Specific [place] 1.017 Urine Protein Negative Urine Glucose (UA) Trace H Urine Ketones Negative Ur Blood (Man) Negative Urine Nitrate Negative Urine Bilirubin Negative Urine Urobilinogen 0.2 Ur Leukocyte Esterase Negative Urine Opiates Screen Positive A Urine Methadone Screen Negative Acetaminophen Ur Barbiturates Screen Negative Ur Phencyclidine Scrn Negative Ur Amphetamine Screen Negative U Benzodiazepines Scrn Negative Urine Cocaine Screen Positive A U Cannabinoids Screen Negative Ethyl Alcohol < 10 Influenza A (RT-PCR) Negative Influenza B (RT-PCR) Negative RSV (RT-PCR) Negative SARS-CoV-2 RNA (RT-PCR) Negative 01/19/25 01/19/25 01/20/25 15:23 20:22 03:37 WBC 6.8 RBC 2.91 L Hgb 10.3 L Hct 30.9 L MCV 106.2 H MCH 35.4 H MCHC 33.3 RDW 12.1 Plt Count 168 MPV 9.0 Immature Gran % (Auto) 0.6 H Neut % (Auto) 42.1 L Lymph % (Auto) 40.4 [place] % (Auto) 11.6 H Eos % (Auto) 4.9 H Baso % (Auto) 0.4 Lymph # (Auto) 2.74 [place] # (Auto) 0.8 H Eos # (Auto) 0.3 Baso # (Auto) 0.0 Abs Immat Gran (auto) 0.04 H Absolute Neuts (auto) 2.9 Absolute Nucleated RBC 0.000 Nucleated RBC % 0.0 Sodium 134 L Potassium 4.2 Chloride 101 Carbon Dioxide 30 Anion Gap 3 L BUN 18 Creatinine 0.78 Estim Creat Clear Calc 79 Estimated GFR > 60 Glucose 155 H POC Capillary Glucose 168 H 240 H Calcium 8.8 Magnesium 1.8 Vitamin B12 Folate TSH Urine Color Urine Appearance Urine pH Ur Specific [place] Urine Protein Urine Glucose (UA) Urine Ketones Ur Blood (Man) Urine Nitrate Urine Bilirubin Urine Urobilinogen Ur Leukocyte Esterase Urine Opiates Screen Urine Methadone Screen Acetaminophen Ur Barbiturates Screen Ur Phencyclidine Scrn Ur Amphetamine Screen U Benzodiazepines Scrn Urine Cocaine Screen U Cannabinoids Screen Ethyl Alcohol Influenza A (RT-PCR) Influenza B (RT-PCR) RSV (RT-PCR) SARS-CoV-2 RNA (RT-PCR)
[2025-01-20] MEDS: TAMSULOSIN HCL 0.4 MG CAPSULE PO (07:48)
[2025-01-20] MEDS: SERTRALINE HCL 50 MG TABLET PO (07:48)
[2025-01-20] MEDS: ATORVASTATIN 20 MG TABLET PO (07:48)
--- NOTE | 2025-01-20 10:06 | PM.IMPN ---
Progress Note: A&P Assessment and Plan (1) Hematochezia: Code(s): K92.1 - Melena Status: Acute Assessment and Plan: 01/17/2025: Patient admitted with concerns of rectal bleeding. He reports bleeding started earlier today. Patient reports he has had multiple loose bowel movements today. He endorses lower abdominal pain. Patient reports he is not on blood thinners. He denies any recent fevers, nausea and vomiting, urinary symptoms, or acute back pain. Patient endorses a history of a stroke but is not on blood thinners. He denies any other pertinent medical history. 01/18/2025: EGD: Normal EGD 01/18/2025: Colonoscopy: Few diverticula were present in the left colon. Noted maroon liquid stool throughout colon, wonder if source of recent GI bleed could have been a diverticular source. 3 mm polyp in the transverse colon, a cold snare polypectomy was performed and polyp was completely excised. Moderate amount of dried blood was seen throughout the colon. Few small size internal hemorrhoids were seen the rectum the hemorrhoids were not actively bleeding -hemoglobin, platelet count have been stable since admission, has not required any transfusion of blood products -BUN remains normal -hemodynamically stable -GI following the patient -continue to monitor (2) Abdominal pain, lower: Code(s): R10.30 - Lower abdominal pain, unspecified Status: Acute Assessment and Plan: Patient was started on levofloxacin and Flagyl for suspicion of diverticulitis,, completed course of antibiotics Denies any abdominal pain at this time -01/17: CT scan without contrast: No contrast blush to suggest acute bleed, no hemodynamically significant stenosis, small hiatal hernia, nonspecific thickening of the bladder wall. (3) Suicidal behavior: Code(s): R45.89 - Other symptoms and signs involving emotional state Status: Acute Assessment and Plan: According to the [place] suicide severity rating Scale patient had thoughts of harming himself with a knife which starts of slashing his wrist which apparently has done in the past -discussed with patient this morning regarding its suicidal ideation/behavior any stated he had started of this life and was it to end. . Does have a proper place to live -seems to be depressed -will definitely benefit from psych unit with they can treat him with meds before sending him back home -patient is on sertraline at home -patient is medically stable for crisis management and is awaiting placement (4) Diabetes mellitus: Code(s): E11.9 - Type 2 diabetes mellitus without complications Status: Acute Assessment and Plan: Resume metformin (5) Macrocytic anemia: Code(s): D53.9 - Nutritional anemia, unspecified Status: Acute Assessment and Plan: normal folic acid and vitamin B12 History of alcohol abuse (6) History of stroke: Code(s): Z86.73 - Personal history of transient ischemic attack (TIA), and cerebral infarction without residual deficits Status: Acute Assessment and Plan: Patient has a history of stroke, will restart atorvastatin (7) Left hip pain: Code(s): M25.552 - Pain in left hip Status: Acute Assessment and Plan: Likely osteoarthritis Will check x-ray to rule out any osseous abnormality Plan PT OT evaluation Subjective Date/time seen: 01/20/25 Overnight events reviewed. Patient is afebrile on room air and with stable vital signs. Tolerating a p.o. diet. He states he has pain in his left hip which is chronic and it hurts when he walks and bears weight. Denies any other complaints. All other systems were reviewed and were negative Review of Systems Review of Systems: All systems reviewed & are unremarkable except as noted in HPI and below Exam Narrative: General: Patient is comfortable, NAD HEENT: Sclera is clear, not icteric LUNGS: Clear to auscultation bilaterally, decreased at bases, adequate air entry, no wheeze HEART: Regular rate and rhythm, S1-S2 is normal ABD: Soft, non distended, tenderness in left lower quadrant normoactive bowel sounds Lower extremities: no edema, cyanosis or clubbing SKIN: No lesions noted Neuro: Patient is awake, alert, answers to questions appropriately, follows simple commands in all extremities PSYCH: Flat and depressed affect. MSK: Normal range of motion of left hip Objective Data Vital Signs Vital Signs: Vital Signs - 24 hr 01/19/25 13:41 01/19/25 20:00 01/19/25 22:00 Temperature 36.9 C 36.8 C Pulse Rate 96 75 Respiratory Rate 15 18 Blood Pressure 127/80 125/81 Pulse Oximetry 96 94 Oxygen Delivery Room Air 01/20/25 06:00 01/20/25 07:28 Temperature 36.9 C Pulse Rate 80 Respiratory Rate 20 Blood Pressure 139/86 Pulse Oximetry 99 Oxygen Delivery Room Air Intake/Output Intake/Output: Intake & Output 01/17/25 01/18/25 01/19/25 01/20/25 23:59 23:59 23:59 23:59 Intake Total 1000 1540 1140 860 Output Total 650 1300 1500 Balance 1000 780 -955 -206 Meds/Results Medications: Active Medications Generic Name Dose Route Start Last Admin Trade Name Freq PRN Reason Stop Dose Admin Atorvastatin Calcium 20 mg 01/20/25 09:00 01/20/25 07:48 Atorvastatin 20 Mg Tablet PO 20 mg DAILY SUSAN Administration Dextrose 12.5 gm 01/19/25 10:00 Dextrose 50% 25 Gm/50 Ml Syringe IV PUSH PRN PRN Hypoglycemia Protocol Gabapentin 300 mg 01/19/25 14:00 01/20/25 05:08 Gabapentin 300 Mg Capsule PO 300 mg Q8HR SUSAN Administration Glucagon 1 mg 01/19/25 10:00 Glucagon For Inj 1 Mg Vial IM PRN PRN Hypoglycemia Protocol Glucose 15 gm 01/19/25 10:00 Glucose Oral Gel 15 Gm Of Glucse In 37.5 Gm Tube PO PRN PRN Hypoglycemia Protocol Dextrose 1,000 mls @ 100 mls/hr 01/19/25 10:00 Dextrose 5% 1,000 Ml IVPB PRN PRN Hypoglycemia Protocol Insulin Aspart 1 - 2 units 01/19/25 21:00 01/19/25 20:24 Insulin Aspart (*Bkc) 100 Units/Ml SUB-Q 1 units HS SUSAN Administration Protocol Insulin Aspart 2 - 5 units 01/19/25 12:00 01/20/25 07:50 Insulin Aspart (*Bkc) 100 Units/Ml SUB-Q Not Given TIDWM COUNTS INCLUDE [facility] BEDS AT [facility] Protocol Metformin HCl 500 mg 01/20/25 17:00 Metformin Hcl 500 Mg Tablet PO BIDWM SUSAN Morphine Sulfate 2 mg 01/18/25 00:06 01/20/25 07:49 Morphine Sulfate (*Crx) 4 Mg/Ml Inj IV PUSH 2 mg Q2H PRN Administration Pain Rated 7-10 Ondansetron HCl 4 mg 01/18/25 00:02 01/18/25 06:36 Ondansetron Inj 4 Mg/2 Ml Vial IV PUSH 4 mg Q4H PRN Administration Nausea Sertraline HCl 50 mg 01/18/25 09:00 01/20/25 07:48 Sertraline Hcl 50 Mg Tablet PO 50 mg DAILY SUSAN Administration Tamsulosin HCl 0.4 mg 01/18/25 09:00 01/20/25 07:48 Tamsulosin Hcl 0.4 Mg Capsule PO 0.4 mg DAILY SUSAN Administration Radiology Results: ITS Impressions Abdomen/Pelvis CTA 01/17/25 22:38 IMPRESSION: No contrast blush is seen to suggest acute bleed. No hemodynamically significant stenosis. Small hiatal hernia is noted. Nonspecific thickening of the bladder wall. All CT scans at this facility are performed using low dose modulation techniques as appropriate to perform exam including the following: automated exposure control; use of iterative reconstruction technique; adjustment of the mA and/or kV according to patient size (this includes techniques or standardized protocols for targeted exams where dose is matched to indication/reason for exam). Labs Labs: Laboratory Results - last 24 hr 01/19/25 01/19/25 01/19/25 03:14 03:17 12:03 WBC RBC Hgb Hct MCV MCH MCHC RDW Plt Count MPV Immature Gran % (Auto) Neut % (Auto) Lymph % (Auto) [place] % (Auto) Eos % (Auto) Baso % (Auto) Lymph # (Auto) [place] # (Auto) Eos # (Auto) Baso # (Auto) Abs Immat Gran (auto) Absolute Neuts (auto) Absolute Nucleated RBC Nucleated RBC % Sodium Potassium Chloride Carbon Dioxide Anion Gap BUN Creatinine Estim Creat Clear Calc Estimated GFR Glucose POC Capillary Glucose Calcium Magnesium Vitamin B12 267.0 Folate 4.8 TSH 0.954 Urine Color Urine Appearance Urine pH Ur Specific [place] Urine Protein Urine Glucose (UA) Urine Ketones Ur Blood (Man) Urine Nitrate Urine Bilirubin Urine Urobilinogen Ur Leukocyte Esterase Urine Opiates Screen Urine Methadone Screen Acetaminophen < 10 L Ur Barbiturates Screen Ur Phencyclidine Scrn Ur Amphetamine Screen U Benzodiazepines Scrn Urine Cocaine Screen U Cannabinoids Screen Ethyl Alcohol < 10 Influenza A (RT-PCR) Negative Influenza B (RT-PCR) Negative RSV (RT-PCR) Negative SARS-CoV-2 RNA (RT-PCR) Negative 01/19/25 01/19/25 01/19/25 12:06 12:37 15:23 WBC RBC Hgb Hct MCV MCH MCHC RDW Plt Count MPV Immature Gran % (Auto) Neut % (Auto) Lymph % (Auto) [place] % (Auto) Eos % (Auto) Baso % (Auto) Lymph # (Auto) [place] # (Auto) Eos # (Auto) Baso # (Auto) Abs Immat Gran (auto) Absolute Neuts (auto) Absolute Nucleated RBC Nucleated RBC % Sodium Potassium Chloride Carbon Dioxide Anion Gap BUN Creatinine Estim Creat Clear Calc Estimated GFR Glucose POC Capillary Glucose 199 H 168 H Calcium Magnesium Vitamin B12 Folate TSH Urine Color Yellow Urine Appearance Clear Urine pH 5.5 Ur Specific [place] 1.017 Urine Protein Negative Urine Glucose (UA) Trace H Urine Ketones Negative Ur Blood (Man) Negative Urine Nitrate Negative Urine Bilirubin Negative Urine Urobilinogen 0.2 Ur Leukocyte Esterase Negative Urine Opiates Screen Positive A Urine Methadone Screen Negative Acetaminophen Ur Barbiturates Screen Negative Ur Phencyclidine Scrn Negative Ur Amphetamine Screen Negative U Benzodiazepines Scrn Negative Urine Cocaine Screen Positive A U Cannabinoids Screen Negative Ethyl Alcohol Influenza A (RT-PCR) Influenza B (RT-PCR) RSV (RT-PCR) SARS-CoV-2 RNA (RT-PCR) 01/19/25 01/20/25 01/20/25 20:22 03:37 07:41 WBC 6.8 RBC 2.91 L Hgb 10.3 L Hct 30.9 L MCV 106.2 H MCH 35.4 H MCHC 33.3 RDW 12.1 Plt Count 168 MPV 9.0 Immature Gran % (Auto) 0.6 H Neut % (Auto) 42.1 L Lymph % (Auto) 40.4 [place] % (Auto) 11.6 H Eos % (Auto) 4.9 H Baso % (Auto) 0.4 Lymph # (Auto) 2.74 [place] # (Auto) 0.8 H Eos # (Auto) 0.3 Baso # (Auto) 0.0 Abs Immat Gran (auto) 0.04 H Absolute Neuts (auto) 2.9 Absolute Nucleated RBC 0.000 Nucleated RBC % 0.0 Sodium 134 L Potassium 4.2 Chloride 101 Carbon Dioxide 30 Anion Gap 3 L BUN 18 Creatinine 0.78 Estim Creat Clear Calc 79 Estimated GFR > 60 Glucose 155 H POC Capillary Glucose 240 H 153 H Calcium 8.8 Magnesium 1.8 Vitamin B12 Folate TSH Urine Color Urine Appearance Urine pH Ur Specific [place] Urine Protein Urine Glucose (UA) Urine Ketones Ur Blood (Man) Urine Nitrate Urine Bilirubin Urine Urobilinogen Ur Leukocyte Esterase Urine Opiates Screen Urine Methadone Screen Acetaminophen Ur Barbiturates Screen Ur Phencyclidine Scrn Ur Amphetamine Screen U Benzodiazepines Scrn Urine Cocaine Screen U Cannabinoids Screen Ethyl Alcohol Influenza A (RT-PCR) Influenza B (RT-PCR) RSV (RT-PCR) SARS-CoV-2 RNA (RT-PCR) Quality VTE Prophylaxis VTE prophylaxis: mechanical ordered
[2025-01-20] MEDS: INSULIN ASPART (*BKC) 100 UNITS/ML SUB-Q ×3 (11:47→21:10)
[2025-01-20 14:00] VITALS: BP 126/84; PULSE 97; RESP 16; TEMP 36.9; O2SAT 99
[2025-01-20 22:00] VITALS: BP 119/71; PULSE 84; RESP 16; TEMP 36.9; O2SAT 95
[2025-01-21] MEDS: MORPHINE SULFATE (*CRX) 4 MG/ML INJ 2 MG IV PUSH (02:27)
[2025-01-21 04:09] LABS: Hematocrit 31.7 % (42.0-52.0); Hemoglobin 10.6 g/dL (14.0-18.0); Mean Corpuscular HGB Conc 33.4 g/dl (32-36); Mean Corpuscular Hemoglobin 35.0 pg (26-34); Mean Corpuscular Volume 104.6 fl (80-100); Platelet Count Result 171 k/mm3 (150-375); Red Blood Count 3.03 M/mm3 (4.6-6.20); White Blood Count 6.9 K/mm3 (4.5-10.0)
[2025-01-21 04:29] LABS: Anion Gap 5 mmol/L (4-12); Blood Urea Nitrogen 18 mg/dL (9-20); Calcium 8.8 mg/dL (8.4-10.2); Carbon Dioxide 29 mmol/L (22-30); Chloride 99 mmol/L (98-107); Estimated CRCL calculation 87 ml/min; Estimated Glomerular Filt Rate > 60; Glucose 180 mg/dL (65-110); Magnesium 1.7 mg/dL (1.6-2.3); Potassium 4.1 mmol/L (3.4-5.0); Sodium 133 mmol/L (137-145)
[2025-01-21] MEDS: GABAPENTIN 300 MG CAPSULE PO ×2 (05:37→14:36)
[2025-01-21 06:00] VITALS: BP 130/80; PULSE 90; RESP 16; TEMP 36.9; O2SAT 96
[2025-01-21 08:00] VITALS: O2SAT 96
--- NOTE | 2025-01-21 08:07 | PM.IMPN ---
Progress Note: A&P Assessment and Plan (1) Hematochezia: Code(s): K92.1 - Melena Status: Acute Assessment and Plan: 01/17/2025: Patient admitted with concerns of rectal bleeding. He reports bleeding started earlier today. Patient reports he has had multiple loose bowel movements today. He endorses lower abdominal pain. Patient reports he is not on blood thinners. He denies any recent fevers, nausea and vomiting, urinary symptoms, or acute back pain. Patient endorses a history of a stroke but is not on blood thinners. He denies any other pertinent medical history. 01/18/2025: EGD: Normal EGD 01/18/2025: Colonoscopy: Few diverticula were present in the left colon. Noted maroon liquid stool throughout colon, wonder if source of recent GI bleed could have been a diverticular source. 3 mm polyp in the transverse colon, a cold snare polypectomy was performed and polyp was completely excised. Moderate amount of dried blood was seen throughout the colon. Few small size internal hemorrhoids were seen the rectum the hemorrhoids were not actively bleeding -hemoglobin, platelet count have been stable since admission, has not required any transfusion of blood products -hemodynamically stable -GI following but no further plans at this time. -continue to monitor (2) Abdominal pain, lower: Code(s): R10.30 - Lower abdominal pain, unspecified Status: Acute Assessment and Plan: Patient was started on levofloxacin and Flagyl for suspicion of diverticulitis,, completed course of antibiotics Denies any abdominal pain at this time -01/17: CT scan without contrast: No contrast blush to suggest acute bleed, no hemodynamically significant stenosis, small hiatal hernia, nonspecific thickening of the bladder wall. (3) Suicidal behavior: Code(s): R45.89 - Other symptoms and signs involving emotional state Status: Acute Assessment and Plan: According to the [place] suicide severity rating Scale patient had thoughts of harming himself with a knife which starts of slashing his wrist which apparently has done in the past -discussed with patient this morning regarding its suicidal ideation/behavior any stated he had started of this life and was it to end. . Does have a proper place to live -seems to be depressed -will definitely benefit from psych unit with they can treat him with meds before sending him back home -patient is on sertraline at home -patient is medically stable for crisis management and is awaiting placement at a inpatient psychiatry facility (4) Diabetes mellitus: Code(s): E11.9 - Type 2 diabetes mellitus without complications Status: Acute Assessment and Plan: Continue metformin (5) Macrocytic anemia: Code(s): D53.9 - Nutritional anemia, unspecified Status: Acute Assessment and Plan: normal folic acid and vitamin B12 History of alcohol abuse (6) History of stroke: Code(s): Z86.73 - Personal history of transient ischemic attack (TIA), and cerebral infarction without residual deficits Status: Acute Assessment and Plan: Patient has a history of stroke, continue atorvastatin Not on antiplatelet therapy at this time due to GI bleed (7) Left hip pain: Code(s): M25.552 - Pain in left hip Status: Acute Assessment and Plan: Hip x-ray was done confirm severe osteoarthritis. P.r.n. analgesic Plan PT OT evaluation Subjective Date/time seen: 01/21/25 Complains of pain in the left hip. Denies any other complaints. All other systems were reviewed and were negative. Patient continues to wait for placement at psychiatry facility. Continue to be under one-to-one sitter observation. Other vital signs stable. Tolerating p.o. diet. Review of Systems Review of Systems: All systems reviewed & are unremarkable except as noted in HPI and below Exam Narrative: General: Patient is comfortable, NAD HEENT: Sclera is clear, not icteric LUNGS: Clear to auscultation bilaterally, decreased at bases, adequate air entry, no wheeze HEART: Regular rate and rhythm, S1-S2 is normal ABD: Soft, non distended, tenderness in left lower quadrant normoactive bowel sounds Lower extremities: no edema, cyanosis or clubbing SKIN: No lesions noted Neuro: Patient is awake, alert, answers to questions appropriately, follows simple commands in all extremities PSYCH: Flat and depressed affect. MSK: Normal range of motion of left hip Objective Data Vital Signs Vital Signs: Vital Signs - 24 hr 01/20/25 14:00 01/20/25 15:22 01/20/25 19:35 Temperature 36.9 C Pulse Rate 97 Respiratory Rate 16 Blood Pressure 126/84 Pulse Oximetry 99 Oxygen Delivery Room Air Room Air 01/20/25 22:00 01/21/25 06:00 Temperature 36.9 C 36.9 C Pulse Rate 84 90 Respiratory Rate 16 16 Blood Pressure 119/71 130/80 Pulse Oximetry 95 96 Oxygen Delivery Intake/Output Intake/Output: Intake & Output 01/18/25 01/19/25 01/20/25 01/21/25 23:59 23:59 23:59 23:59 Intake Total 1540 1140 1460 600 Output Total 650 1300 3100 1050 Balance 621 -664 -5213 -955 Meds/Results Medications: Active Medications Generic Name Dose Route Start Last Admin Trade Name Freq PRN Reason Stop Dose Admin Atorvastatin Calcium 20 mg 01/20/25 09:00 01/20/25 07:48 Atorvastatin 20 Mg Tablet PO 20 mg DAILY SUSAN Administration Dextrose 12.5 gm 01/19/25 10:00 Dextrose 50% 25 Gm/50 Ml Syringe IV PUSH PRN PRN Hypoglycemia Protocol Gabapentin 300 mg 01/19/25 14:00 01/21/25 05:37 Gabapentin 300 Mg Capsule PO 300 mg Q8HR SUSAN Administration Glucagon 1 mg 01/19/25 10:00 Glucagon For Inj 1 Mg Vial IM PRN PRN Hypoglycemia Protocol Glucose 15 gm 01/19/25 10:00 Glucose Oral Gel 15 Gm Of Glucse In 37.5 Gm Tube PO PRN PRN Hypoglycemia Protocol Dextrose 1,000 mls @ 100 mls/hr 01/19/25 10:00 Dextrose 5% 1,000 Ml IVPB PRN PRN Hypoglycemia Protocol Insulin Aspart 1 - 2 units 01/19/25 21:00 01/20/25 21:10 Insulin Aspart (*Bkc) 100 Units/Ml SUB-Q 1 units HS SUSAN Administration Protocol Insulin Aspart 2 - 5 units 01/19/25 12:00 01/20/25 16:06 Insulin Aspart (*Bkc) 100 Units/Ml SUB-Q 2 units TIDWM SUSAN Administration Protocol Metformin HCl 500 mg 01/20/25 17:00 01/20/25 15:57 Metformin Hcl 500 Mg Tablet PO 500 mg BIDWM SUSAN Administration Morphine Sulfate 2 mg 01/18/25 00:06 01/21/25 02:27 Morphine Sulfate (*Crx) 4 Mg/Ml Inj IV PUSH 2 mg Q2H PRN Administration Pain Rated 7-10 Ondansetron HCl 4 mg 01/18/25 00:02 01/18/25 06:36 Ondansetron Inj 4 Mg/2 Ml Vial IV PUSH 4 mg Q4H PRN Administration Nausea Sertraline HCl 50 mg 01/18/25 09:00 01/20/25 07:48 Sertraline Hcl 50 Mg Tablet PO 50 mg DAILY SUSAN Administration Tamsulosin HCl 0.4 mg 01/18/25 09:00 01/20/25 07:48 Tamsulosin Hcl 0.4 Mg Capsule PO 0.4 mg DAILY SUSAN Administration Radiology Results: ITS Impressions Abdomen/Pelvis CTA 01/17/25 22:38 IMPRESSION: No contrast blush is seen to suggest acute bleed. No hemodynamically significant stenosis. Small hiatal hernia is noted. Nonspecific thickening of the bladder wall. All CT scans at this facility are performed using low dose modulation techniques as appropriate to perform exam including the following: automated exposure control; use of iterative reconstruction technique; adjustment of the mA and/or kV according to patient size (this includes techniques or standardized protocols for targeted exams where dose is matched to indication/reason for exam). Hip/Pelvis X-Ray 01/20/25 11:50 IMPRESSION: 1. Severe left hip osteoarthritis. No acute osseous abnormality. Labs Labs: Laboratory Results - last 24 hr 01/20/25 01/20/25 01/20/25 11:41 16:05 19:40 WBC RBC Hgb Hct MCV MCH MCHC RDW Plt Count MPV Sodium Potassium Chloride Carbon Dioxide Anion Gap BUN Creatinine Estim Creat Clear Calc Estimated GFR Glucose POC Capillary Glucose 206 H 206 H 205 H Calcium Magnesium 01/21/25 01/21/25 04:04 07:30 WBC 6.9 RBC 3.03 L Hgb 10.6 L Hct 31.7 L MCV 104.6 H MCH 35.0 H MCHC 33.4 RDW 12.1 Plt Count 171 MPV 8.7 Sodium 133 L Potassium 4.1 Chloride 99 Carbon Dioxide 29 Anion Gap 5 BUN 18 Creatinine 0.70 Estim Creat Clear Calc 87 Estimated GFR > 60 Glucose 180 H POC Capillary Glucose 183 H Calcium 8.8 Magnesium 1.7 Quality VTE Prophylaxis VTE prophylaxis: mechanical ordered
[2025-01-21] MEDS: MAGNESIUM OXIDE 400 MG TABLET PO (08:56)
[2025-01-21] MEDS: ATORVASTATIN 20 MG TABLET PO (08:56)
[2025-01-21] MEDS: TAMSULOSIN HCL 0.4 MG CAPSULE PO (08:56)
[2025-01-21] MEDS: SERTRALINE HCL 50 MG TABLET PO (08:56)
[2025-01-21 14:00] VITALS: BP 119/78; PULSE 92; RESP 20; TEMP 36.9; O2SAT 100
--- NOTE | 2025-01-21 14:17 | P.DS_ITS ---
DS: Admitting Diagnosis Discharge Date 01/21/2025 Admitting Diagnosis GI bleed DS: Discharge Diagnosis Discharge Diagnosis (1) Hematochezia: Code(s): K92.1 - Melena Status: Acute (2) Abdominal pain, lower: Code(s): R10.30 - Lower abdominal pain, unspecified Status: Acute (3) Suicidal behavior: Code(s): R45.89 - Other symptoms and signs involving emotional state Status: Acute (4) Diabetes mellitus: Code(s): E11.9 - Type 2 diabetes mellitus without complications Status: Acute (5) Macrocytic anemia: Code(s): D53.9 - Nutritional anemia, unspecified Status: Acute (6) History of stroke: Code(s): Z86.73 - Personal history of transient ischemic attack (TIA), and cerebral infarction without residual deficits Status: Acute (7) Left hip pain: Code(s): M25.552 - Pain in left hip Status: Acute (8) Depression: Code(s): F32.A - Depression, unspecified Status: Acute (9) Diverticulosis: Code(s): K57.90 - Diverticulosis of intestine, part unspecified, without perforation or abscess without bleeding Status: Acute DS: Summary Hospital Course Reason for hospitalization: GI bleed, suicidal ideation Hospital Course: 69-year-old male who was brought to ER with concern of rectal bleeding. He reported multiple episodes of loose bowel movements with blood and lower abdominal pain at the time of presentation. CT abdomen pelvis was done at the time of presentation and was negative for any active bleed patient was admitted and GI was consulted. Patient did not require any transfusion. [facility] and was guarded by security guards. Patient underwent EGD and colonoscopy on 01/18 EGD was normal and colonoscopy showed diverticulosis without any perforation or abscess and no active bleeding. He also had colon polyps and internal hemorrhoids Postprocedure patient was monitored in the hospital his hemoglobin remained stable and he never required any transfusion. His medications were continued including statin lisinopril for blood pressure metformin was resumed for his diabetes and sertraline for his depression During the hospitalization patient exhibited suicidal behavior with suicidal ideation and was placed under suicide precautions with one-to-one sitter patient was evaluated by crisis management and care coordination and recommended to be transferred to inpatient psych facility. Patient was today accepted at the [facility]. Patient is otherwise stable with stable vital signs asymptomatic and stable labs. Patient will be discharged today and transferred to inpatient psych facility. No changes in his medications were made. He also complained of hip pain and a hip x-ray was done which confirmed osteoarthritis and no fracture. Status at Discharge Functional status at discharge: independent ambulation Overall status at discharge: patient is back to baseline Time Spent with Patient Time attestation: Total time spent providing and/or coordinating discharge services: Specific discharge activities: Patient is being discharged to inpatient psychiatric facility at [facility] Exam Narrative: General: Patient is comfortable, NAD HEENT: Sclera is clear, not icteric LUNGS: Clear to auscultation bilaterally, decreased at bases, adequate air entry, no wheeze HEART: Regular rate and rhythm, S1-S2 is normal ABD: Soft, non distended, tenderness in left lower quadrant normoactive bowel sounds Lower extremities: no edema, cyanosis or clubbing SKIN: No lesions noted Neuro: Patient is awake, alert, answers to questions appropriately, follows simple commands in all extremities PSYCH: Flat and depressed affect. MSK: Normal range of motion of left hip DS: Data Data Completed and Pending Completed studies during hospitalization: Pending at discharge 01/18/25 14:17 Surgical [PTH] Routine Labs on day of discharge: Labs from last 24 hours 01/21/25 01/21/25 01/21/25 11:51 07:30 04:04 WBC 6.9 RBC 3.03 L Hgb 10.6 L Hct 31.7 L MCV 104.6 H MCH 35.0 H MCHC 33.4 RDW 12.1 Plt Count 171 MPV 8.7 Sodium 133 L Potassium 4.1 Chloride 99 Carbon Dioxide 29 Anion Gap 5 BUN 18 Creatinine 0.70 Estim Creat Clear Calc 87 Estimated GFR > 60 Glucose 180 H POC Capillary Glucose 196 H 183 H Calcium 8.8 Magnesium 1.7 01/20/25 01/20/25 19:40 16:05 WBC RBC Hgb Hct MCV MCH MCHC RDW Plt Count MPV Sodium Potassium Chloride Carbon Dioxide Anion Gap BUN Creatinine Estim Creat Clear Calc Estimated GFR Glucose POC Capillary Glucose 205 H 206 H Calcium Magnesium Imaging My impression: Left hip x-ray showed osteoarthritis Radiologist's impression: CTA abdomen pelvis on 01/17/25 IMPRESSION: No contrast blush is seen to suggest acute bleed. No hemodynamically significant stenosis. Small hiatal hernia is noted. Nonspecific thickening of the bladder wall. Discharge Plan Discharge Attending physician on discharge: Denys Brito Consulting providers: Jay Jay Valadez Discharging Clinician: Densy Brito Anticipated Discharge Date/Time: 01/21/25 14:21 Patient Disposition: Other Activity: as tolerated Diet: as tolerated and diabetic Discharge Instructions: Patient is being discharged to inpatient psychiatry facility [facility] and accepting provider is Leif Jesus Patient Instructions: Antibiotic Form, How to Stop Smoking (ED) Patient Language: Romanian Stand Alone Forms: General Discharge Information Discharge Medications: Continued metformin 500 mg tablet Patient Comments: Monitor blood sugar, states he has been out for 2-3 weeks atorvastatin 20 mg tablet 20 mg PO DAILY lisinopril 20 mg tablet 20 mg PO DAILY tamsulosin 0.4 mg capsule 0.4 mg PO DAILY gabapentin 300 mg capsule 300 mg PO TID sertraline 50 mg tablet 50 mg PO DAILY Date of admission: 01/21/25 08:29 Primary Care Provider: UNKNOWN,DOCTOR Admitting Provider: Mee Dorman Attending physician on admission: Mee Dorman Condition: Stable Quality VTE Prophylaxis VTE prophylaxis: mechanical ordered Hospitalist MIPS Heart Failure (Exclusion) Patient has history of Heart Transplant or Left Ventricular Assistive Device?: No IF YES, STOP HERE Heart Failure (Qualifier) Patient has current or prior documentation of LVEF less than or equal to 40%, or mod/servere depressed LVSF?: No IF NO, STOP HERE
--- NOTE | 2025-01-21 14:19 | PC.NURSE ---
Received call from ROB Griffin at [facility] in [place], [place] stating Leif Jesus NP will accept patient at facility. No report is needed to be given, only call [phone] to inform patient has left our facility and ETA. Dr. Brito made aware and transfer order placed. Char Winslow RN
--- NOTE | 2025-01-21 16:04 | PC.NURSE ---
Phoned [facility] and informed ROB Griffin patient left our facility at 1435. All belongings were sent with patient. No complaints or concerns at time of discharge. Char Winslow RN
[2025-01-23 12:08] LABS: HSV-1 DNA Negative (Negative); HSV-2 DNA Negative (Negative)
== END 2025-01-21 15:35 ==
LOC: ANHED 01-18 00:02 → ANHICU 01-18 05:47 → ANH2MED 01-23 10:23 → ANHICU 01-23 10:23
PROVIDERS: Family Medicine; Internal Medicine; Internal Medicine Gastroenterology; Admitting Provider Internal Medicine; Emergency Provider Registered Nurse; Visit Provider Internal Medicine
PROC: 0DJ08ZZ Inspection of Upper Intestinal Tract, Via Natural or Artificial Opening Endoscopic (ICD-10-PCS; CPT 45378; principal; 2025-01-18 15:00)
DX: K92.1 Melena (principal); R10.30 Lower abdominal pain, unspecified; D12.3 Benign neoplasm of transverse colon; K57.30 Diverticulosis of large intestine without perforation or abscess without bleeding; K64.8 Other hemorrhoids; R45.89 Other symptoms and signs involving emotional state; D53.9 Nutritional anemia, unspecified; M25.552 Pain in left hip; F32.A Depression, unspecified; E11.9 Type 2 diabetes mellitus without complications; Z86.73 Personal history of transient ischemic attack (TIA), and cerebral infarction without residual deficits; Z72.0 Tobacco use; Z20.822 Contact with and (suspected) exposure to COVID-19
CPT/HCPCS: 43235; 45385; 36415; 73502; 74174; 80048; 80053; 80143; 80307; 81003; 82077; 82607; 82746; 82948; 83605; 83690; 83735; 84443; 85014; 85018; 85025; 85027; 85610; 85730; 86615; 86850; 86900; 86901; 87529; 87637; 88305; 93005; 96374; 96375; 97162; 99285; A9270; J1815; J1836; J1956; J2003; J2270; J2405; J2470; J2704; J3475; J7030; J7120; Q9967